=== PATIENT | female | born 1960 | race Caucasian/White ===

== ENCOUNTER 2021-05-23 09:50 | Outpatient (REF) | payer MEDICAID, SELFPAY ==
--- NOTE | ~2021-05-23 | MM_ITS ---
EXAMINATION: MM SCREENING DIGITAL BREAST TOMOSYNTHESIS, BILATERAL CLINICAL INFORMATION: Screening. Asymptomatic. The lifetime risk of breast cancer based on the Tyrer-Cuzick Model is 7%. COMPARISON: Mammography: 03/21/2019, 03/14/2018, 02/26/2017, 07/31/2016, 09/11/2013 TECHNIQUE: Digital breast tomosynthesis is performed in both the craniocaudal and mediolateral oblique views along with computer-aided detection (CAD). Synthesized 2D images are generated from the tomosynthesis. FINDINGS: There are scattered areas of fibroglandular density (ACR BI-RADS breast composition Category b). There are no significant masses, abnormal calcifications, or other abnormalities. Parenchymal pattern is similar to prior studies. There is no developing density. The axillary nodes are stable. Skin contours are smooth. MM/MM tomosynthesis screening BI IMPRESSION: No mammographic evidence of malignancy. ASSESSMENT: BI-RADS 2: Benign RECOMMENDATION: Routine annual mammography screening. This patient's information was entered into a reminder system with a target due date for their next mammogram.
== END 2021-05-23 09:51 | disposition home or self-care (01) ==
LOC: HO.MAMMO 09:50
PROVIDERS: PCP Family Medicine; Visit Provider Family Medicine
DX: Z12.31 Encounter for screening mammogram for malignant neoplasm of breast (principal)
CPT/HCPCS: 77063; 77067

== ENCOUNTER 2022-04-18 10:03 | Outpatient (REF) | payer MEDICAID, SELFPAY ==
--- NOTE | ~2022-04-18 | XR_ITS ---
EXAMINATION: XR HAND, RIGHT CLINICAL INFORMATION: Right hand pain. COMPARISON: None. TECHNIQUE: PA, lateral, and oblique views of the right hand. FINDINGS: No acute fracture or dislocation. Normal carpal alignment. Mild joint space narrowing with tiny marginal surface at the triscaphe and 1st carpometacarpal joints as well as scattered throughout the metacarpophalangeal and interphalangeal joints. No significant periarticular erosion or osteopenia. No abnormal soft tissue calcification. XR/XR hand RT min 3V IMPRESSION: Minimal degenerative arthritis at the triscaphe and 1st carpometacarpal joints as well as scattered throughout the metacarpophalangeal and interphalangeal joints. No acute fracture or dislocation.
== END 2022-04-18 10:04 | disposition home or self-care (01) ==
LOC: HO.HOSX 10:03
PROVIDERS: Visit Provider Orthopaedic Surgery
DX: M79.641 Pain in right hand (principal); M79.89 Other specified soft tissue disorders
CPT/HCPCS: 73130; 99202

== ENCOUNTER 2022-08-01 10:33 | Outpatient (REF) | payer MEDICAID, SELFPAY ==
--- NOTE | ~2022-08-01 | US_ITS ---
EXAMINATION: US LOWER EXTREMITY (REFLUX EXAM), RIGHT CLINICAL INDICATION: Venous insufficiency COMPARISON: None. TECHNIQUE: Color flow triplex imaging and compression Doppler was performed to evaluate both the deep and the superficial systems of the right lower extremity. To evaluate the superficial system, the examination was performed in the upright position. Color-flow Doppler ultrasound and compression ultrasound were utilized. In addition, maneuvers were utilized to demonstrate reflux. FINDINGS: 1. DEEP VENOUS DOPPLER ULTRASOUND: Common Femoral Vein: Compressible, normal respiratory variation and augmented flow. Femoral Vein: Compressible, normal color flow and augmentation. Popliteal Vein: Compressible, normal augmentation. Deep Reflux: There is no evidence of reflux in the deep system in either the common femoral vein or the popliteal vein. There is no evidence of a Nichole's cyst. 2. SUPERFICIAL VENOUS DOPPLER ULTRASOUND: GREAT SAPHENOUS VEIN: Saphenofemoral Junction: 0.6 cm; Reflux: 0 ms Proximal Thigh: 0.3 cm; Reflux: 0 ms Mid Thigh: 0.3 cm; Reflux: 0 ms Above Knee: 0.4 cm; Reflux: 0 ms At Knee: 0.3 cm; Reflux: 0 ms Below Knee: 0.3 cm; Reflux: 0 ms Mid Calf: 0.1 cm; Reflux: 0 ms Ankle: 0.2 cm; Reflux: 0 ms DUPLICATED MEDIAL GREAT SAPHENOUS VEIN: Diameter: None Imaged Reflux: NA DUPLICATED LATERAL GREAT SAPHENOUS VEIN: Proximal: 0.3 cm; Reflux: 0 ms Distal: 0.1 cm; Reflux: 0 ms SMALL SAPHENOUS VEIN: Proximal: 0.3 cm; Reflux: 0 ms Distal: 0.2 cm; Reflux: 0 ms VEIN OF GIACOMINI: None Imaged. PERFORATORS: Location: Proximal thigh and proximal calf Size: 0.2 -0.3 cm Reflux: NA VARICOSITIES: Location: Proximal thigh Size: 0.3 cm Reflux: NA US/US venous duplex LE RT IMPRESSION: 1. No evidence of DVT or deep venous reflux. 2. No significant reflux in the great saphenous vein or small saphenous vein.
== END 2022-08-01 10:34 | disposition home or self-care (01) ==
LOC: HO.US 10:33
PROVIDERS: PCP Family Medicine; Visit Provider Family Medicine
DX: R25.2 Cramp and spasm (principal)
CPT/HCPCS: 93971

== ENCOUNTER 2022-08-23 08:42 | Outpatient (REF) | payer MEDICAID, SELFPAY ==
--- NOTE | ~2022-08-23 | MM_ITS ---
EXAMINATION: MM SCREENING DIGITAL BREAST TOMOSYNTHESIS, BILATERAL CLINICAL INFORMATION: Screening. Asymptomatic. The lifetime risk of breast cancer based on the Tyrer-Cuzick Model is 7%. COMPARISON: Mammography: 05/23/2021, 03/21/2019, 03/14/2018, 02/26/2017 TECHNIQUE: Digital breast tomosynthesis is performed in both the craniocaudal and mediolateral oblique views along with computer-aided detection (CAD). Synthesized 2D images are generated from the tomosynthesis. FINDINGS: There are scattered areas of fibroglandular density (ACR BI-RADS breast composition Category b). There are no significant masses, abnormal calcifications, or other abnormalities. Parenchymal pattern is similar to prior studies. There is no developing density or architectural abnormality. The axillary nodes is similar to prior exams. Skin contours are unremarkable. No significant changes from prior exams. MM/MM tomosynthesis screening BI IMPRESSION: No mammographic evidence of malignancy. ASSESSMENT: BI-RADS 2: Benign RECOMMENDATION: Routine annual mammography screening. This patient's information was entered into a reminder system with a target due date for their next mammogram.
== END 2022-08-23 08:43 | disposition home or self-care (01) ==
LOC: HO.MAMMO 08:42
PROVIDERS: PCP Family Medicine; Visit Provider Family Medicine
DX: Z12.31 Encounter for screening mammogram for malignant neoplasm of breast (principal)
CPT/HCPCS: 77063; 77067

== ENCOUNTER 2022-09-14 11:00 | Outpatient (RCR) | payer MEDICAID, SELFPAY | END 2022-09-19 07:29 | disposition home or self-care (01) | LOC: HO.PT 11:00 | PROVIDERS: PCP Family Medicine; Visit Provider Family Medicine | DX: R25.2 Cramp and spasm (principal) | CPT/HCPCS: 97110; 97161; 97530 ==

== ENCOUNTER 2022-11-28 13:22 | Outpatient (REF) | payer MEDICAID, SELFPAY ==
[2022-11-28 16:31] LABS: Estimated Average Glucose 120 mg/dL; Hemoglobin A1c % 5.8 % (<6.0)
[2022-11-28 16:47] LABS: Alanine Aminotransferase 15 U/L (0-31); Albumin Level 4.3 g/dL (3.5-5.0); Alkaline Phosphatase 49 U/L (39-117); Anion Gap 10 (12-20); Aspartate Amino Transferase 23 U/L (5-31); Bilirubin Total 0.4 mg/dL (0.0-1.0); Blood Urea Nitrogen 13 mg/dL (9-16); Calcium 9.5 mg/dL (8.4-10.2); Carbon Dioxide 26 mmol/L (22-29); Chloride 108 mmol/L (96-108); Cholesterol 154 mg/dL (<200); Estimated Glomerular Filt Rate > 60; Glucose Random 126 mg/dL (60-115); HDL Cholesterol 49 mg/dL (>40); LDL Cholesterol Calculated 83 mg/dL (<100); Potassium 3.4 mmol/L (3.3-5.1); Sodium 141 mmol/L (135-145); Total Protein 7.5 g/dL (6.5-8.0); Triglycerides 110 mg/dL (<150)
== END 2022-11-28 13:23 | disposition home or self-care (01) ==
LOC: HO.HHCL 13:22
PROVIDERS: Visit Provider Family Medicine
DX: I10 Essential (primary) hypertension (principal); R73.01 Impaired fasting glucose; E78.5 Hyperlipidemia, unspecified
CPT/HCPCS: 36415; 80053; 80061; 83036

== ENCOUNTER 2022-12-27 18:41 | Outpatient (REF) | payer MEDICAID, SELFPAY ==
[2022-12-28 12:34] LABS: BV Int Neg Control Negative (Negative); BV Int Pos Control Positive (Positive)
== END 2022-12-27 18:42 | disposition home or self-care (01) ==
LOC: HO.HHCLNP 18:41
PROVIDERS: Visit Provider Emergency Medicine
DX: N89.8 Other specified noninflammatory disorders of vagina (principal)
CPT/HCPCS: 87480; 87510; 87660

== ENCOUNTER 2023-01-02 16:13 | Outpatient (REF) | payer MEDICAID, SELFPAY ==
[2023-01-04 09:53] LABS: BV Int Neg Control Negative (Negative); BV Int Pos Control Positive (Positive)
== END 2023-01-02 16:14 | disposition home or self-care (01) ==
LOC: HO.HHCLNP 16:13
PROVIDERS: Visit Provider Nurse Practitioner Family
DX: N94.9 Unspecified condition associated with female genital organs and menstrual cycle (principal)
CPT/HCPCS: 87480; 87510; 87660

== ENCOUNTER 2023-01-15 09:38 | Outpatient (REF) | payer MEDICAID, SELFPAY ==
--- NOTE | ~2023-01-15 | CT_ITS ---
CT CERVICAL SPINE WITHOUT CONTRAST HISTORY: Neck pain TECHNIQUE: CT images of the cervical spine were acquired without intravenous contrast. This CT examination was performed using dose optimization techniques as appropriate, variously including the following: *Automated exposure control *Adjustment of mA and/or kV according to patient size (this includes techniques or standardized protocols for targeted exams where dose is matched to indication/reason for exam; i.e. extremities or head) *Use of iterative reconstruction technique DLP: 322.18 mGy-cm COMPARISON: Cervical radiographs 06/13/2021 FINDINGS: Again seen postsurgical changes following C5-C7 ACDF with intact hardware and solid interbody arthrodesis spanning these levels. There is partial osseous fusion across the right C5-C6 facet joint. The craniocervical junction is intact. 8mm ossification inferior to the anterior arch of C1 may be posttraumatic or reflect a congenital accessory ossicle. Straightening of the normal cervical lordosis. There is no significant spondylolisthesis. Vertebral body heights are normal without acute compression fracture. No suspicious osseous lesion. There is mild multilevel disc height loss. Please not canal patency is not well assessed on this examination due to inherent limitations of CT without intrathecal contrast. Within these limitations, multilevel degenerative changes with level by level detail are as follows: C2-C3: Broad-based paracentral disc protrusion, bilateral uncovertebral joint hypertrophy and bilateral facet arthrosis, severe on the left. Mild spinal canal, severe left without significant right neural foraminal stenosis. C3-C4: Shallow annular disc bulge, bilateral uncovertebral spurring and mild bilateral facet arthrosis. No spinal canal stenosis. Minimal right without significant left neural foraminal narrowing. C4-C5: Small disc osteophyte complex with central disc osteophyte protrusion, right greater than left uncovertebral joint hypertrophy and mild bilateral facet arthrosis. Mild to moderate spinal canal stenosis with encroachment upon the ventral cord, severe right and moderate left neural foraminal stenosis. C5-C6: Postsurgical changes as above with streak artifact limiting diagnostic assessment of the spinal canal. No bony spinal canal stenosis. Uncovertebral joint hypertrophy and facet arthrosis contributes to severe left and moderate right neural foraminal stenosis. C6-C7: Postsurgical changes as above with streak artifact limiting diagnostic assessment of the spinal canal. No bony spinal canal stenosis. Mild uncovertebral spurring and facet arthrosis contributes to mild left without significant right neural foraminal stenosis. C7-T1: Artifact limits assessment of the spinal canal however there is no bony spinal canal stenosis. No significant neural foraminal stenosis. No significant abnormalities of the paraspinal soft tissues. 3 mm right upper lobe subpleural nodule. Heterogeneous thyroid gland with a 4 mm right thyroid nodule below size criteria for imaging follow-up. Elongated and ossified styloid processes can be correlated clinically for signs of Chicot syndrome. Punctate calcified left palatine tonsillolith. Mildly prominent left greater than right level 5 lymph nodes and asymmetric prominent level 2A lymph nodes, presumably reactive. CT/CT cervical spine wo IV con IMPRESSION: 1. Postsurgical changes following C5-C7 ACDF with intact hardware and solid interbody arthrodesis spanning these levels. 2. Multilevel cervical spondylosis, worst at the superior junctional level of C4-C5 where there is mild to moderate spinal canal stenosis as well as severe right and moderate left neural foraminal stenosis. Severe left and moderate right C5-C6 neural foraminal stenosis. 3. Elongated and ossified styloid processes can be correlated clinically for signs of Chicot syndrome. 4. 3 mm right upper lobe subpleural nodule. According to the UPDATED 2017 Fleischner Society recommendations, the advised followup imaging for solid nodules < 6 mm is: LOW RISK PATIENT: No routine follow up. HIGH RISK PATIENT: Optional CT at 12 months.
== END 2023-01-15 09:39 | disposition home or self-care (01) ==
LOC: HO.CT 09:38
PROVIDERS: PCP Family Medicine; Visit Provider Family Medicine
DX: M54.2 Cervicalgia (principal); M48.02 Spinal stenosis, cervical region
CPT/HCPCS: 72125

== ENCOUNTER 2023-01-31 06:00 | Emergency (ER) | payer MEDICAID, SELFPAY ==
--- NOTE | ~2023-01-31 | XR_ITS ---
EXAMINATION: XR CHEST CLINICAL INFORMATION: Fever and cough COMPARISON: None available. TECHNIQUE: Frontal view of the chest was obtained. FINDINGS: Heart, mediastinum and pulmonary vessels within normal limits. Right lung is clear. Mild left base atelectasis. Degenerative changes. Lower cervical surgical stabilizing hardware partially visualized. XR/XR chest 1V IMPRESSION: Mild left base atelectasis otherwise no acute cardiopulmonary disease.
[2023-01-31 06:07] VITALS: BP 158/92; BP 164/108; PULSE 101; PULSE 95; RESP 18; TEMP 37.6; O2SAT 96; O2SAT 98; BMI 31.7
[2023-01-31] MEDS: Acetaminophen 325 MG TABLET 975 MG PO (06:23)
[2023-01-31 07:02] LABS: Influenza A PCR NEGATIVE (Negative); Influenza B PCR NEGATIVE (Negative); Resp Syncy Virus RNA Qual PCR NEGATIVE (Negative); SARS COV2 PCR INHOUSE NEGATIVE (Negative)
--- NOTE | 2023-01-31 07:51 | ED.GENADULT ---
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 Patient reports that since Sunday after leaving [employer] she has been experiencing chills, fevers and headache and has not been drinking much water but otherwise denies any nausea, vomiting, diarrhea, denies any abdominal pain and also denies any urinary pain/burning/frequency. Related Data Home Medications Medication Instructions Recorded Confirmed chlorthalidone 25 mg tablet 0 mg PO 04/18/22 cholecalciferol (vitamin D3) 25 25 mcg PO DAILY 04/18/22 mcg (1,000 unit) capsule (Vitamin D3) diphenhydramine HCl 25 mg tablet 25 mg PO BEDTIME PRN 04/18/22 (Banophen) gabapentin 300 mg capsule 300 mg PO 04/18/22 lisinopril 40 mg tablet 40 mg PO DAILY 04/18/22 loratadine 10 mg tablet 10 mg PO DAILY 04/18/22 omeprazole 20 mg capsule,delayed 20 mg PO DAILY 04/18/22 release rosuvastatin 5 mg tablet 5 mg PO QAM 04/18/22 Allergies Allergy/AdvReac Type Severity Reaction Status Date / Time meperidine [Demerol] Allergy Severe hives face Verified 01/31/23 06:15 swelling, throat closing midazolam [From Versed] Allergy Severe Hives, Verified 01/31/23 06:15 Face swelling, Throat closing bupropion [From Wellbutrin] Allergy Unknown Hives, Verified 01/31/23 06:15 Rash, Itching Review of Systems Review of Systems: Pertinent positives and negatives as stated in HPI [facility] Past Medical History Source: nursing notes reviewed Medical History Polyp of cervix Acute hemorrhoid Acid reflux Allergies High blood pressure Prediabetes High cholesterol Surgical History Tubal ligation status History of neck surgery Previous back surgery Social History Social History Smoked in Last 30 Days: No Use of substances other than those prescribed or required for medical reasons: No Advance Directives: No Advance Directives Information Provided: Yes Patient : No Current occupational status: retired and disabled 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 GENERAL: Well developed, well nourished, in no acute distress. HEAD: Normocephalic/atraumatic EYES: PERRLA, EOMI EARS: Ext canals without abnormality, TMs non-bulging and non-erythematous NOSE: Nares patent bilateral OROPHARYNX: no oral lesions noted, posterior pharynx clear and non-erythematous without noted tonsillar enlargement/erythema/exudates NECK: Supple, no adenopathy LUNGS: Normal breath sounds. No adventitious sounds or accessory muscle use. SpO2<96> CARDIOVASCULAR: Regular rate and rhythm without noted murmurs, no JVD or lower extremity edema. ABDOMEN: Soft, suprapubic discomfort, non-distended with bowel sounds. MUSCULOSKELETAL: No tenderness, deformities, or effusions noted on gross inspection. EXTREMITIES: No cyanosis, clubbing or edema. SKIN: Inspection of the skin reveals no rashes NEUROLOGIC: Alert and oriented x 4. Strength and sensation to light touch were grossly intact x 4, no facial asymmetry, no pronator drift, cranial nerves 2-12 are grossly intact. Medications Administered Discontinued Medications Generic Name Dose Route Start Last Admin Trade Name Dimitri PRN Reason Stop Dose Admin Acetaminophen 975 mg 01/31/23 06:16 01/31/23 06:23 Acetaminophen 325 Mg Tablet PO 01/31/23 06:17 975 mg ONCE ONE Administration Ibuprofen 400 mg 01/31/23 07:52 01/31/23 08:22 Ibuprofen 400 Mg Tablet PO 01/31/23 07:53 400 mg ONCE ONE Administration Medical Decision Making Medical Decision Making MDM Narrative: 62-year-old female with history and clinical presentation, DDX: Viral illness, pneumonia, UTI, a component of dehydration I reviewed all viral testing which is negative for COVID-19/RSV/influenza. Chest x-ray does not demonstrate any infiltrate and otherwise my interpretation is in agreement with radiology's impression. I reviewed all investigations and urinalysis is negative for UTI or hematuria. Patient was provided with ibuprofen 400 mg, and on re-evaluation headache has improved and is likely combination of analgesics and increased fluid consumption. My interpretation is that patient has had a viral illness, there are no findings to suggest bacterial infection, no focal findings and patient will be discharged on recommendations for continued analgesics and increase in fluid intake. Differential Diagnosis Differential Diagnoses: The differential diagnosis associated with the presentation includes Please see the discussion above Admission/Observation Consideration of admission/observation: Escalation of care including admission/observation considered Please see the discussion above Lab Data MDM Lab Attestation statement: I reviewed the patient's lab results. Please see the discussion above Labs: Lab Results 01/31/23 01/31/23 Range/Units 06:22 09:12 Urine Color Yellow Urine Appearance Clear Urine pH 7.0 (5.0-9.0) Ur Specific [place] 1.015 (1.005-1.025) Urine Protein Trace (Neg-Trace) mg/dL Urine Glucose (UA) Negative (Negative) mg/dL Urine Ketones Negative (Negative) mg/dL Urine Blood Negative (Negative) Urine Nitrite Negative (Negative) Ur Leukocyte Esterase Negative (Negative) Influenza Type A (PCR) NEGATIVE (Negative) Influenza Type B (PCR) NEGATIVE (Negative) RSV RNA Qual (PCR) NEGATIVE (Negative) SARS-CoV-2 RNA (RT-PCR) NEGATIVE (Negative) Radiology Impression Discussion of test interpretation with radiology: I have reviewed the radiologist's reading. Radiologist Impression: Please see the discussion above External Record Review External record reviewed: Outpatient record, Prior outpatient labs and Prior outpatient radiology Chronic Conditions Patient?s care impacted by: Hypertension Discharge Plan Discharge Clinical Impression: Viral illness Patient Disposition: Home, Self-Care Instructions: Viral Syndrome (ED) Additional Instructions: 1. Recomiendo retomar todos los medicamentos caseros seg?n lo recetado. 2. Tambi?n recomiendo que utilice Tylenol e ibuprofeno para los oleksandr de meng y las temperaturas superiores a 100,4. Adem?s, aumente la cantidad de ingesta de agua. 3. Seguimiento con roblero m?dico de atenci?n primaria. Regrese a la jaylan de emergencias si los s?ntomas empeoran. 1. I recommend resuming all home medications as prescribed. 2. I also recommend that you utilize both Tylenol and ibuprofen for headaches and temperatures greater than 100.4. In addition, please increase the amount of water intake. 3. Follow-up with your primary care doctor. Return to the ER for any worsening symptoms. Prescriptions: No Action lisinopril 40 mg tablet 40 mg PO DAILY gabapentin 300 mg capsule 300 mg PO cholecalciferol (vitamin D3) [Vitamin D3] 25 mcg (1,000 unit) capsule 25 mcg PO DAILY loratadine 10 mg tablet 10 mg PO DAILY omeprazole 20 mg capsule,delayed release(DR/EC) 20 mg PO DAILY diphenhydramine HCl [Banophen] 25 mg tablet 25 mg PO BEDTIME PRN rosuvastatin 5 mg tablet 5 mg PO QAM chlorthalidone 25 mg tablet 0 mg PO Referrals: Lyly Cam MD [Primary Care Provider] - Print Language: Prydeinig
[2023-01-31 08:00] VITALS: BP 135/84; PULSE 77; RESP 15
[2023-01-31] MEDS: Ibuprofen 400 MG TABLET PO (08:22)
--- NOTE | 2023-01-31 09:05 | PC.NURSE ---
assumed care of pt at 0700. pt a&o x4, pleasant, calm, and cooperative daughter at bedside helps with interpreting, pt is italian speaking only. pt requesting medication other than tylenol to help with pain. pt rating 8/10 head pain, given ibuprofen per mar. pt ambulated with daughter standby assist and gave UA. UA obtained and sent to lab. pt sts ibuprofen helped with pain relief. offers no complaints isidro. rr even/unlabored. call leonard within pt reach. plan of care ongoing.
[2023-01-31 09:19] LABS: Appearance Urine Clear; Color Urine Yellow; Glucose Urine UA Negative (Negative); Leukocyte Esterase Urine Negative (Negative); Nitrite Urine Negative (Negative); Specific Gravity - Urine 1.015 (1.005-1.025); Urine Blood Negative (Negative); Urine Ketones Negative (Negative); Urine Protein Trace mg/dL (Neg-Trace)
== END 2023-01-31 10:04 | disposition home or self-care (01) ==
PROVIDERS: Emergency Medicine; Emergency Provider Student in an Organized Health Care Education/Training Program; PCP Family Medicine
DX: B34.9 Viral infection, unspecified (principal); R51.9 Headache, unspecified; R05.9 Cough, unspecified; R50.9 Fever, unspecified; R42 Dizziness and giddiness; Z20.822 Contact with and (suspected) exposure to COVID-19; Z20.828 Contact with and (suspected) exposure to other viral communicable diseases
CPT/HCPCS: 0241U; 71045; 81003; 99283; 99284

== ENCOUNTER 2023-05-21 09:59 | Outpatient (REF) | payer MEDICAID, SELFPAY ==
--- NOTE | ~2023-05-21 | MR_ITS ---
EXAMINATION: MR CERVICAL SPINE WITHOUT CONTRAST CLINICAL INFORMATION: Cervical spinal stenosis. COMPARISON: Cervical spinal stenosis. TECHNIQUE: MRI of the cervical spine was obtained using routine sequences without contrast. FINDINGS: Instrumented anterior fusion of C5-C7. Minimal degenerative retrolisthesis of C4 on C5. Minimal degenerative anterolisthesis of T1 on T2. Otherwise, normal anatomic alignment. Moderate degenerative disc disease at C4-C5 and from C7-T3. Mild degenerative disc disease at all additional levels. Associated mixed Modic type discogenic and plate changes including mild Modic type I discogenic edema at C4-C5. Mild marrow edema within the posterior elements of C2-C3 and C4-C6 consistent with degenerative stress reaction. No additional suspicious marrow edema. The vertebral body heights are well-maintained. No demonstrated spinal cord signal abnormalities. Limited evaluation of the soft tissues of the neck without demonstrated abnormalities. The flow voids of the major cervical vessels are maintained. Normal appearance of the cervicomedullary junction and visualized posterior fossa. SPINAL LEVELS: C2-C3: Mild disc-osteophyte complex. There is mild bilateral uncovertebral joint arthropathy. There is severe left and mild right facet joint arthropathy. There is moderate left and mild right neural foraminal stenosis. There is no spinal canal stenosis. C3-C4: Mild disc-osteophyte complex. There is moderate right and mild left uncovertebral joint arthropathy. There is mild to moderate bilateral facet joint arthropathy. There is mild bilateral neural foraminal stenosis. There is mild spinal canal stenosis. C4-C5: Moderate disc-osteophyte complex with superimposed central disc protrusion. There is severe right and moderate left uncovertebral joint arthropathy. There is mild to moderate bilateral facet joint arthropathy. There is severe right and mild to moderate left neural foraminal stenosis. There is moderate spinal canal stenosis. C5-C6: Fused at this level. There is moderate bilateral uncovertebral joint arthropathy. There is moderate bilateral facet joint arthropathy. There is severe left and moderate right neural foraminal stenosis. There is no spinal canal stenosis. C6-C7: Fused at this level. There is moderate bilateral uncovertebral joint arthropathy. There is moderate left and mild right facet joint arthropathy. There is mild left worse than right neural foraminal stenosis. There is no spinal canal stenosis. C7-T1: Moderate disc-osteophyte complex. There is moderate right and mild left uncovertebral joint arthropathy. There is moderate bilateral facet joint arthropathy. There is moderate right and mild left neural foraminal stenosis. There is no spinal canal stenosis. MR/MR cervical spine wo con IMPRESSION: Instrumented anterior fusion of C5-C7. Moderate multilevel degenerative spondyloarthropathy of the cervical spine as described in detail above. Most notably, there is moderate spinal canal stenosis at C4-C5. Mild spinal canal stenosis at C3-C4. Moderate to severe neural foraminal stenoses at C2-C3, C4-C5, C5-C6, and C7-T1.
== END 2023-05-21 10:00 | disposition home or self-care (01) ==
LOC: HO.MRI 09:59
PROVIDERS: PCP Family Medicine; Visit Provider Family Medicine
DX: M48.02 Spinal stenosis, cervical region (principal)
CPT/HCPCS: 72141

== ENCOUNTER 2023-08-27 10:53 | Outpatient (REF) | payer MEDICAID, SELFPAY ==
[2023-08-27 14:19] LABS: Anion Gap 12 (12-20); Blood Urea Nitrogen 19 mg/dL (9-16); Carbon Dioxide 26 mmol/L (22-29); Chloride 107 mmol/L (96-108); Estimated Glomerular Filt Rate > 60; Glucose Random 104 mg/dL (60-115); Potassium 3.7 mmol/L (3.3-5.1); Sodium 141 mmol/L (135-145)
== END 2023-08-27 10:54 | disposition home or self-care (01) ==
LOC: HO.HHCL 10:53
PROVIDERS: Visit Provider Family Medicine
DX: I10 Essential (primary) hypertension (principal)
CPT/HCPCS: 36415; 80048

== ENCOUNTER 2023-09-18 09:06 | Outpatient (REF) | payer MEDICAID, SELFPAY | END 2023-09-18 09:07 | disposition home or self-care (01) | LOC: HO.MAMMO 09:06 | PROVIDERS: PCP Family Medicine; Visit Provider Family Medicine | DX: Z12.31 Encounter for screening mammogram for malignant neoplasm of breast (principal) | CPT/HCPCS: 77063; 77067 ==

== ENCOUNTER → 2023-09-18 09:30 | Outpatient (BNV) | payer MEDICAID, SELFPAY | PROVIDERS: PCP Family Medicine; Visit Provider Radiology Diagnostic Radiology | DX: Z12.31 Encounter for screening mammogram for malignant neoplasm of breast (principal) | CPT/HCPCS: 77063; 77067 ==

== ENCOUNTER 2023-10-11 09:32 | Outpatient (REF) | payer MEDICAID, SELFPAY ==
[2023-10-11 11:36] LABS: Estimated Average Glucose 123 mg/dL; Hemoglobin A1c % 5.9 % (<6.0)
[2023-10-11 11:47] LABS: Alanine Aminotransferase 14 U/L (0-31); Albumin Level 4.4 g/dL (3.5-5.0); Alkaline Phosphatase 56 U/L (39-117); Anion Gap 17 (12-20); Aspartate Amino Transferase 19 U/L (5-31); Bilirubin Total 0.3 mg/dL (0.0-1.0); Blood Urea Nitrogen 22 mg/dL (9-16); Calcium 10.2 mg/dL (8.4-10.2); Carbon Dioxide 25 mmol/L (22-29); Chloride 105 mmol/L (96-108); Cholesterol 179 mg/dL (<200); Estimated Glomerular Filt Rate > 60; Glucose Random 101 mg/dL (60-115); HDL Cholesterol 54 mg/dL (>40); LDL Cholesterol Calculated 102 mg/dL (<100); Potassium 3.5 mmol/L (3.3-5.1); Sodium 143 mmol/L (135-145); Total Protein 7.5 g/dL (6.5-8.0); Triglycerides 116 mg/dL (<150)
[2023-10-11 11:52] LABS: Reflex LDLD? No
== END 2023-10-11 09:33 | disposition home or self-care (01) ==
LOC: HO.HHCL 09:32
PROVIDERS: Visit Provider Family Medicine
DX: E78.5 Hyperlipidemia, unspecified (principal); I10 Essential (primary) hypertension
CPT/HCPCS: 36415; 80053; 80061; 83036

== ENCOUNTER 2024-10-08 11:00 | Outpatient (RCR) | payer MEDICAID, SELFPAY | END 2024-11-27 15:56 | disposition home or self-care (01) | LOC: HO.PT 11:00 | PROVIDERS: PCP Family Medicine; Visit Provider Family Medicine | DX: M48.02 Spinal stenosis, cervical region (principal); M54.2 Cervicalgia; G89.29 Other chronic pain | CPT/HCPCS: 97110; 97140; 97162; 97530 ==

== ENCOUNTER 2024-10-15 15:07 | Outpatient (REF) | payer MEDICAID, SELFPAY ==
--- OUTSIDE RECORDS SUMMARY | 2024-10-15 15:37 | XMS_ITS | Clinical Summary ---
Author Organization [employer] Address [address] [place] [address] [address] [place] [address] Care Team Providers Care Vector Control Specialist Name Role Phone Lyly Cam MD Primary Care Provider [phone] Marcell Dutta PharmD Unavailable [phone] Allergies Active Allergy Reactions Criticality Noted Date Comments Amlodipine 10/13/2015 Atorvastatin 08/23/2012 Bupropion Hives 08/23/2023 Latex Rash Low 08/23/2023 Loratadine Headache 08/25/2013 Meperidine Rash Low 08/23/2012 Midazolam Rash Low 08/23/2012 Montelukast Headache 08/25/2013 Nickel Rash Low 08/23/2023 Simvastatin Itching 08/25/2013 Medications gabapentin (Neurontin) 300 MG capsule TAKE 1 CAPSULE BY MOUTH EVERY MORNING & AT BEDTIME 2 Active rosuvastatin (Crestor) 5 MG tabletIndications :Dyslipidemia TAKE 1 TABLET BY MOUTH EVERY DAY IN THE MORNING 90 tablet 3 4 Active cholecalciferol (D3-1000) 25 MCG (1000 UT) capsuleIndication s:Vitamin D deficiency TAKE 1 CAPSULE BY MOUTH EVERY DAY IN THE MORNING 90 capsule 3 5 Active diphenhydrAMINE (Banophen) 25 MG tablet TAKE 1 TABLET BY MOUTH EVERY DAY AT BEDTIME NEEDED 90 tablet 3 5 Active cromolyn (Opticrom) 4 % ophthalmic solution ADMINISTER 1 DROP INTO BOTH EYES FOUR TIMES DAILY 10 mL 3 5 Active cetirizine (ZyrTEC) 10 MG tabletIndications :Nasal congestion Take 1 tab daily as needed for allergies or congestion 90 tablet 1 5 Active olmesartan (Benicar) 40 MG tabletIndications :Primary hypertension Take 1 tablet (40 mg) by mouth Once per day. 30 tablet 11 5 07/19/19 26 Active clobetasol (Temovate) 0.05 % ointment APPLY TO AFFECTED AREA TWICE A DAY 45 g 1 5 Active cyclobenzaprine (Flexeril) 5 MG tablet TAKE 1 OR 2 TABLETS BY MOUTH AT BEDTIME NEEDED FOR MUSCLE SPASM 60 tablet 1 5 Active omeprazole (PriLOSEC) [address] capsuleIndication s:Dyslipidemia TAKE 1 CAPSULE BY MOUTH ONCE DAILY BEFORE A MEAL 90 capsule 5 Active fluticasone (Flonase) 50 MCG/ACT nasal spray Administer 1-2 sprays into each nostril Once per day. Shake gently. Before first use, prime pump. After use, clean tip and replace cap. 16 g 2 5 08/12/19 26 Active celecoxib (CeleBREX) 100 MG capsule Take 1 capsule by mouth once or twice daily as needed for moderate to severe pain 60 capsule 2 5 Active Active Problems Problem Noted Date Diagnosed Date Chronic neck pain 08/11/2024 Assessment & Plan (08/11/2024 1:36 PM EDT): - contacted her neurosurgeon's office - will refer to PT - will prescribe celecoxib History of deep vein thrombosis (DVT) of lower e xtremity 07/15/2022 Assessment & Plan (12/01/2022 6:07 AM EDT): - Right medial and lateral gastrocnemius veins in August 2018 - with right Achilles tendon rupture - Provoked - treated with 3 months of Xarelto - most recent venous study and deep vein doppler were negative for venous reflux or DVT in July 2022 Assessment & Plan (07/15/2022 9:11 PM EDT): - Right medial and lateral gastrocnemius veins in August 2018 - with right Achilles tendon rupture - Provoked - treated with 3 months of Xarelto Subcutaneous mass of right thumb 07/13/2022 Assessment & Plan (07/13/2022 12:24 PM EDT): Patient was seen by Orthopedist on 04/18/22 -Recommended Excisional Biopsy of mass, but patient deferred at this time -patient has mild-OA (osteoarthritis) of joint -will continue to monitor Pain of right thumb 07/13/2022 Assessment & Plan (07/13/2022 12:23 PM EDT): Patient was seen by Orthopedist on 04/18/22 -Recommended Excisional Biopsy of mass, but patient deferred at this time -patient has mild-OA (osteoarthritis) of joint -will continue to monitor Cramps of right lower extremity 07/13/2022 Overview (07/13/2022): Hx of Achilles Tendon Rupture Assessment & Plan (12/01/2022 6:06 AM EDT): - Hx DVT and Achilles tendon rupture in August 2018 - LE venous study and doppler was normal in July 2022 - completed PT, still symptomatic - continue stretching exercise Assessment & Plan (07/15/2022 9:14 PM EDT): - Hx DVT and Achilles tendon rupture in August 2018 - Refer to physical therapy Globus sensation 03/20/2022 Assessment & Plan (03/21/2022 4:00 PM EST): -Evaluated by ENT. Normal laryngoscopy -Pt is non-smoker. ENT's impression is that pt might have sustained an injury when she was intubated for her ACDF operation -Referred to speech therapy as recommended by ENT, but was unable to receive the therapy; will check -Currently it is tolerable Cervical spinal stenosis 03/20/2022 Assessment & Plan (08/17/2024 7:21 PM EDT): -Followed by [facility] providers and [facility] neurosurgeon. -Last seen by neurosurgeon in August 2023, post-op check -Last seen by PSS provider in May 2019 -s/p ACDF C5-C7 on 07/01/[address] Horn -CT in Dec 2022 showed severe spinal canal and foraminal stenosis -MRI in Apr 2023 showed Moderate multilevel degenerative spondyloarthropathy of the cervical spines. Moderate spinal canal stenosis at C4-C5. Mild spinal canal stenosis at C3-C4. Moderate to severe neural foraminal stenoses at C2-C3, C4-C5, C5-C6, and C7-T1 - s/p ACDF C4-C5, removal of right C5 screw, on 08/17/23 -Continue gabapentin 300 mg bid -Continue lidocaine patch -Continue judicious use of muscle relaxant -Add celecoxib. Discussed about its judicious use. Assessment & Plan (01/16/2024 1:43 PM EDT): -Followed by [facility] providers and [facility] neurosurgeon. -Last seen by neurosurgeon in August 2023, post-op check -Last seen by PSS provider in May 2019 -s/p ACDF C5-C7 on 07/01/[address] Horn -CT in Dec 2022 showed severe spinal canal and foraminal stenosis -MRI in Apr 2023 showed Moderate multilevel degenerative spondyloarthropathy of the cervical spines. Moderate spinal canal stenosis at C4-C5. Mild spinal canal stenosis at C3-C4. Moderate to severe neural foraminal stenoses at C2-C3, C4-C5, C5-C6, and C7-T1 - s/p ACDF C4-C5, removal of right C5 screw, on 08/17/23 -Continue gabapentin 300 mg bid -Continue lidocaine patch - the patient is still having discomfort after surgery. Will try muscle relaxer at bedtime. Assessment & Plan (10/10/2023 5:45 AM EDT): -Followed by [facility] providers and [facility] neurosurgeon. -Last seen by neurosurgeon in August 2023, post-op check -Last seen by PSS provider in May 2019 -s/p ACDF C5-C7 on 07/01/[address] Horn -CT in Dec 2022 showed severe spinal canal and foraminal stenosis -MRI in Apr 2023 showed Moderate multilevel degenerative spondyloarthropathy of the cervical spines. Moderate spinal canal stenosis at C4-C5. Mild spinal canal stenosis at C3-C4. Moderate to severe neural foraminal stenoses at C2-C3, C4-C5, C5-C6, and C7-T1 - s/p ACDF C4-C5, removal of right C5 screw, on 08/17/23 -Continue gabapentin 300 mg bid -Continue lidocaine patch Assessment & Plan (06/07/2023 6:20 AM EDT): -Followed by [facility] providers and neurosurgeon. -Last seen by neurosurgeon in JanFeb 2019 -Last seen by PSS provider in May 2019 -s/p ACDF C5-C7 on 07/01/[address] Horn -CT in Dec 2022 showed severe spinal canal and foraminal stenosis -MRI in Apr 2023 showed Moderate multilevel degenerative spondyloarthropathy of the cervical spines. Moderate spinal canal stenosis at C4-C5. Mild spinal canal stenosis at C3-C4. Moderate to severe neural foraminal stenoses at C2-C3, C4-C5, C5-C6, and C7-T1 -Continue gabapentin 300 mg bid -Continue lidocaine patch -Upcoming appointment with neurosurgeon in July 2023 Assessment & Plan (03/18/2023 11:23 AM EST): -Followed by [facility] providers and neurosurgeon. -Last seen by neurosurgeon in JanFeb 2019 -Last seen by PSS provider in May 2019 -s/p ACDF C5-C7 on 07/01/[address] Horn -Continue gabapentin 300 mg bid - Add lidocaine patch - refer back to neurosurgery Assessment & Plan (12/01/2022 6:04 AM EDT): -Followed by [facility] providers and neurosurgeon. -Last seen by neurosurgeon in JanFeb 2019 -Last seen by PSS provider in May 2019 -s/p ACDF C5-C7 on 07/01/[address] Horn -Tapered down Gabapentin, now maintained at 300 mg bid -Re-evaluate with CT due to worsening pain Assessment & Plan (03/20/2022 10:36 AM EST): -Followed by [facility] providers and neurosurgeon. -Last seen by neurosurgeon in JanFeb 2019 -Last seen by PSS provider in May 2019 -s/p ACDF C5-C7 on 07/01/[address] Horn -Tapered down Gabapentin, now maintained at 300 mg bid Anxiety and depression 03/20/2022 Assessment & Plan (10/09/2023 9:46 PM EDT): -Hx PTSD -Ending long-term relationship in 2019 -Pt is looking forward to starting a new year in her new apartment -Continue practicing healthy lifestyle, stress reduction, and self-care. Assessment & Plan (12/01/2022 6:06 AM EDT): -Hx PTSD -Ending long-term relationship in 2020 -Pt is looking forward to starting a new year in her new apartment -Continue practicing healthy lifestyle, stress reduction, and self-care. Assessment & Plan (03/21/2022 4:03 PM EST): -Hx PTSD -Ending long-term relationship in 2019 -Pt is looking forward to starting a new year in her new apartment -Continue practicing healthy lifestyle, stress reduction, and self-care. Atopic dermatitis 10/12/2015 Assessment & Plan (10/10/2023 11:26 AM EDT): - avoid irritation - continue liberal moisturization with hypoallergenic, unscented emollients - judicious use of topical steroid in moderate to severe areas - switch clobetasol from cream to ointment. Assessment & Plan (07/15/2022 9:13 PM EDT): - avoid irritation - continue liberal moisturization with hypoallergenic, unscented emollients - judicious use of topical steroid in moderate to severe areas Dyslipidemia 09/16/2014 Assessment & Plan (08/11/2024 1:09 PM EDT): -10/11/23 TC 179; TG 116; HDL 54; LDL 102 -Current medication: rosuvastatin 5 mg daily -Treatment Hx: intolerance to atorvastatin, simvastatin -Continue working on lifestyle modification Assessment & Plan (01/16/2024 1:42 PM EDT): -10/11/23 TC 179; TG 116; HDL 54; LDL 102 -Current medication: rosuvastatin 5 mg daily -Treatment Hx: intolerance to atorvastatin, simvastatin -Continue working on lifestyle modification Assessment & Plan (10/09/2023 9:46 PM EDT): -11/28/22 TC 154; TG 110; HDL 49; LDL 83 -Current medication: rosuvastatin 5 mg daily -Treatment Hx: intolerance to atorvastatin, simvastatin -Continue working on lifestyle modification Assessment & Plan (06/23/2023 6:33 AM EDT): -11/28/22 TC 154; TG 110; HDL 49; LDL 83 -Current medication: rosuvastatin 5 mg daily -Treatment Hx: intolerance to atorvastatin, simvastatin -Continue working on lifestyle modification Assessment & Plan (03/18/2023 11:31 AM EST): -11/28/22 TC 154; TG 110; HDL 49; LDL 83 -Current medication: rosuvastatin 5 mg daily -Treatment Hx: intolerance to atorvastatin, simvastatin -Continue working on lifestyle modification Assessment & Plan (12/01/2022 6:06 AM EDT): -12/15/21 TC 168; TG 103; HDL 51; LDL 97 -Current medication: rosuvastatin 5 mg daily -Treatment Hx: intolerance to atorvastatin, simvastatin -Continue working on lifestyle modification Assessment & Plan (07/15/2022 9:12 PM EDT): -12/15/21 TC 168; TG 103; HDL 51; LDL 97 -Current medication: rosuvastatin 5 mg daily -Treatment Hx: intolerance to atorvastatin, simvastatin -Continue working on lifestyle modification Assessment & Plan (03/20/2022 10:44 AM EST): -12/15/21 TC 168; TG 103; HDL 51; LDL 97 -Current medication: rosuvastatin 5 mg daily -Treatment Hx: intolerance to atorvastatin, simvastatin -Continue working on lifestyle modification Migraine 09/16/2014 Allergic rhinitis 08/23/2012 Assessment & Plan (10/10/2023 11:26 AM EDT): -Continue Loratadine - add cromolyn eye drops for conjunctivitis. Gastroesophageal reflux disease 08/23/2012 Assessment & Plan (03/20/2022 10:47 AM EST): -continue omeprazole Hypertension 08/23/2012 Assessment & Plan (08/17/2024 7:15 PM EDT): -Goal BP < 130/80 per ACC/AHA (Treatment threshold 140/90); < 150/90 per JNC-8,, Hx white coat HTN - BP elevated today, home BP has been slightly elevated, currently in pain -Co-managed with our pharmacist through [facility] -Continue checking home BP -Completed 24 hour BP monitor / bioimpedance cardiography hemodynamic measurement in 2018, which showed normal BP measurement at home -Continue working on lifestyle modifications and medication adherence. -Continue olmesartan 40 mg qAM. -Treatment Hx: nifedipine was discontinued due to headache; atenolol was discontinued due to symptomatic hypotension, chlorthalidone was discontinued due to hypotension, hctz 25 mg caused fatigue, and amlodipine was discontinued due to abdominal pain and LE edema; metoprolol was discontinued due to patient's perception of memory impairment -Consider combo med Assessment & Plan (01/16/2024 5:56 AM EDT): -Goal BP < 150/90 per JNC-8, < 130/80 per ACC/AHA (Treatment threshold 140/90); Hx white coat HTN - BP elevated today likely white coat hypertension. Home BP are normal. -Co-managed with our pharmacist through [facility] -Continue checking home BP -Completed 24 hour BP monitor / bioimpedance cardiography hemodynamic measurement in 2018, which showed normal BP measurement at home -Continue working on lifestyle modifications and medication adherence. -Continue olmesartan 50 mg qAM. -Treatment Hx: nifedipine was discontinued due to headache; atenolol was discontinued due to symptomatic hypotension, chlorthalidone was discontinued due to hypotension, hctz 25 mg caused fatigue, and amlodipine was discontinued due to abdominal pain and LE edema; metoprolol was discontinued due to patient's perception of memory impairment -Consider longer acting medication, if available --f/u in 3 months or sooner prn Assessment & Plan (10/10/2023 11:24 AM EDT): -Goal BP < 150/90 per JNC-8, < 130/80 per ACC/AHA (Treatment threshold 140/90); Hx white coat HTN - BP elevated today likely white coat hypertension. Home BP are normal. -Co-managed with our pharmacist through [facility] -Continue checking home BP -Completed 24 hour BP monitor / bioimpedance cardiography hemodynamic measurement in 2018, which showed normal BP measurement at home -Continue working on lifestyle modifications and medication adherence. -Continue olmesartan 50 mg qAM. -Continue metoprolol succinate 12.5 mg daily with parameter -Treatment Hx: nifedipine was discontinued due to headache; atenolol was discontinued due to symptomatic hypotension, chlorthalidone was discontinued due to hypotension, hctz 25 mg caused fatigue, and amlodipine was discontinued due to abdominal pain and LE edema; metoprolol was discontinued due to patient's perception of memory impairment -Consider longer acting medication, if available --f/u in 3 months or sooner prn Assessment & Plan (06/23/2023 6:32 AM EDT): -Goal BP < 150/90 per JNC-8, < 130/80 per ACC/AHA (Treatment threshold 140/90); Hx white coat HTN -Co-managed with our pharmacist through [facility] -Continue checking home BP -Completed 24 hour BP monitor / bioimpedance cardiography hemodynamic measurement in 2018, which showed normal BP measurement at home -Continue working on lifestyle modifications and medication adherence. -Continue lisinopril 40 mg qAM. -Continue metoprolol succinate 12.5 mg daily with parameter -Treatment Hx: nifedipine was discontinued due to headache; atenolol was discontinued due to symptomatic hypotension, chlorthalidone was discontinued due to hypotension, hctz 25 mg caused fatigue, and amlodipine was discontinued due to abdominal pain and LE edema. -Consider longer acting medication, if available --f/u in 3 months or sooner prn Assessment & Plan (03/12/2023 6:31 AM EST): -Goal BP < 150/90 per JNC-8, < 130/80 per ACC/AHA (Treatment threshold 140/90); Hx white coat HTN -Co-managed with our pharmacist through [facility] -Continue checking home BP -Completed 24 hour BP monitor / bioimpedance cardiography hemodynamic measurement in 2018, which showed normal BP measurement at home -Continue working on lifestyle modifications and medication adherence. -Continue lisinopril 40 mg qAM. -Treatment Hx: atenolol, chlorthalidone, hctz, and amlodipine - discontinued due to concern for symptomatic low BP and side effects. --f/u in 3-6 months or sooner prn Assessment & Plan (12/01/2022 6:05 AM EDT): -Goal BP < 150/90 per JNC-8, < 130/80 per ACC/AHA (Treatment threshold 140/90); Hx white coat HTN -Co-managed with our pharmacist through [facility] -Continue checking home BP -Completed 24 hour BP monitor / bioimpedance cardiography hemodynamic measurement in 2018, which showed normal BP measurement at home -Continue working on lifestyle modifications and medication adherence. -Continue lisinopril 40 mg qAM. -Treatment Hx: atenolol, chlorthalidone, hctz, and amlodipine - discontinued due to concern for symptomatic low BP and side effects. --f/u in 3-6 months or sooner prn Assessment & Plan (07/13/2022 11:47 AM EDT): -Goal BP < 150/90 per JNC-8, < 130/80 per ACC/AHA (Treatment threshold 140/90); Hx white coat HTN -Co-managed with our pharmacist through [facility] -Continue checking home BP -Completed 24 hour BP monitor / bioimpedance cardiography hemodynamic measurement in 2018, which showed normal BP measurement at home -Continue working on lifestyle modifications and medication adherence. -Continue lisinopril 40 mg qAM. -Treatment Hx: atenolol, chlorthalidone, hctz, and amlodipine - discontinued due to concern for symptomatic low BP and side effects. --f/u in 3 month Assessment & Plan (03/20/2022 10:54 AM EST): -Goal BP < 150/90 per JNC-8, < 130/80 per ACC/AHA (Treatment threshold 140/90); Hx white coat HTN -Co-managed with our pharmacist through [facility] -Continue checking home BP -Completed 24 hour BP monitor / bioimpedance cardiography hemodynamic measurement in 2018, which showed normal BP measurement at home -Continue working on lifestyle modifications and medication adherence. -Continue lisinopril 40 mg qAM. -Treatment Hx: atenolol, chlorthalidone, hctz, and amlodipine - discontinued due to concern for symptomatic low BP and side effects. --f/u in 3 month Impaired fasting glucose 08/23/2012 Assessment & Plan (08/11/2024 1:39 PM EDT): -Since 2019 A1C > 5.9%, the highest 6.1% in [id number] -12/15/21 6.0% -11/28/22 5.8% -10/10/23 6.3% - 10/11/23 5.9% -Family Hx DM (mother and daughter) -Continue working on lifestyle modification -Continue screening q6-12 mo Assessment & Plan (01/16/2024 1:41 PM EDT): -Since 2019 A1C > 5.9%, the highest 6.1% in [id number] -12/15/21 6.0% -11/28/22 5.8% -10/10/23 6.3% -Family Hx DM (mother and daughter) -Continue working on lifestyle modification -Continue screening q6-12 mo Assessment & Plan (10/09/2023 9:45 PM EDT): -Since 2019 A1C > 5.9%, the highest 6.1% in [id number] -12/15/21 6.0% -11/28/22 5.8% -Family Hx DM (mother and daughter) -Continue working on lifestyle modification -Continue screening q6-12 mo Assessment & Plan (06/23/2023 6:33 AM EDT): -Since 2019 A1C > 5.9%, the highest 6.1% in 5092-1754 -12/15/21 6.0% -11/28/22 5.8% -Family Hx DM (mother and daughter) -Continue working on lifestyle modification -Continue screening q6-12 mo Assessment & Plan (03/18/2023 11:31 AM EST): -Since 2019 A1C > 5.9%, the highest 6.1% in 4446-9034 -12/15/21 6.0% -11/28/22 5.8% -Family Hx DM (mother and daughter) -Continue working on lifestyle modification -Continue screening q6-12 mo Assessment & Plan (07/13/2022 11:47 AM EDT): -Since 2019 A1C > 5.9%, the highest 6.1% in 1116-3224 -12/15/21 6.0% -Family Hx DM (mother and daughter) -Continue working on lifestyle modification -Continue screening q6-12 mo Assessment & Plan (03/20/2022 10:39 AM EST): -Since 2019 A1C > 5.9%, the highest 6.1% in 8800-3480 -12/15/21 6.0% -Family Hx DM (mother and daughter) -Continue working on lifestyle modification -Continue screening q6-12 mo Insomnia 08/23/2012 Assessment & Plan (03/21/2022 3:59 PM EST): -Stress reduction -Practice healthy sleep hygiene Encounters Date Type Department Care Team Description 10/08/[address] [id number] Lyly Cam MD [facility] 09/14/2024 Results Follow-Up [address] [id number] Denae Decker, ANP MR Cervical Spine w/o Contrast 09/08/2024 1:30 PM EDT Telemedicine [address] [id number] Marcell Dutta, PharmD Hypertension, unspecified type (Primary Dx) 08/27/2024 Telephone [facility] [address] [place] [address] [id number] Lyly Cam MD MRI ORDER 08/11/2024 1:00 PM EDT Office Visit [facility] [address] [place] [id number] Lyly Cam MD Hypertension, unspecified type (Primary Dx); Dyslipidemia; Impaired fasting glucose; Encounter for immunization; Cervical spinal stenosis; Chronic neck pain; Dietary counseling; Exercise counseling; Class 1 obesity due to excess calories with serious comorbidity and body mass index (BMI) of 32.0 to 32.9 in adult 08/11/2024 Travel 08/08/2024 Refill [facility] [address] [place], [place] [phone] Lyly Cam MD Dyslipidemia 08/08/[address] [id number] Lyly Cam MD Chart Prep 07/18/2024 10:00 AM EDT Telemedicine [address] [phone] Marcell Dutta, DenizD Primary hypertension (Primary Dx) 07/18/2024 Travel from Last 3 Months Immunizations Immunization Administration Dates Next Due Influenza injectable quadriv alent IIV4 with preservative 01/01/2018,04/17/2017,01/18/2016,03/02 Influenza injectable quadriv alent preservative free 12/08/2021,12/13/2020,04/28/2019 Influenza, IIV3, injectable 01/01/2014, 1 Influenza, Split (incl. eleazar fied surface antigen) 01/24/2013 Influenza, seasonal, injecta ble, preservative free 01/16/2024 Pfizer Covid-19 Vaccine 12+ 04/18/2021, 1,08/13/2020 Pfizer Covid-19 Vaccine 12+ Bivalent 01/17/2022 Pneumococcal Conjugate PCV 20 08/11/2024 Pneumococcal Polysaccharide PPSV23 08/30/2008 TD (adult), 2 Lf tetanus tox oid, preservative free, adsorbed 07/13/2022,05/01/2007 Td (adult), 5 Lf tetanus tox oid, preservative free, adsorbed 07/13/2022 Tdap 08/23/2012 Zoster, Recombinant 09/20/2020,04/28/2019 Family History Medical History Relation Name Comments Diabetes Daughter Hypertension Daughter Bipolar disorder Granddaughter Diabetes Mother Hypertension Mother Relation Name Status Comments Daughter Granddaughter Other Mother Social History Tobacco Use Types Packs/Day Years Used Date Smoking Tobacco: Never Passive Smoke Exposure: Never Smokeless Tobacco: Never Tobacco Cessation:Counseling Given: Not Answered Depression Answer Date Recorded Patient Health Questionnaire-9 Score 0 10/10/2023 Patient Health Questionnaire-9 Score 0 10/10/2023 Last PHQ-9: Questionnaire Data Not on file 0 10/10/2023 Housing Stability Answer Date Recorded What is your housing situation today? I have rosita kar 08/11/[address] you li ve. Do you have problems with any of the following? None of the above 08/11/2024 Food Insecurity Answer Date Recorded Within the past 12 months, y ou worried that your food would run out before you got money to buy more: Never True 08/11/2024 Within the past 12 months,th e food you bought just didn't last and you didn't have enough money to get more: Never True Transportation Answer Date Recorded In the past 12 months, has l ack of transportation kept you from medical appts, meetings, work or from getting things needed for daily living? No 08/11/2024 Utilities Answer Date Recorded In the past 12 months, has t he electric, gas, oil or water company threatened to shut off services in your home? No 08/11/2024 Depression Answer Date Recorded Patient Health Questionnaire-2 Score 0 10/10/2023 Internet Access Answer Date Recorded Internet Access Q1 Yes 08/11/2024 Internet Access Q2 Not on file 08/11/2024 Comments No Sex and Gender Information Value Date Recorded Sex Assigned at Female 01/23/2022 10:14 AM EDT Legal Sex Female 10:14 AM EDT Gender Identity Female 01/23/2022 10:14 AM EDT Sexual Orientation Choose not to disclose 2021 10:14 AM EDT Last Filed Vital Signs Vital Sign Reading Time Taken Comments Blood Pressure 151/101 09/08/2024 1:49 PM EDT [facility] (televisit) Pulse 83 09/08/2024 1:49 PM EDT Temperature 36.2 C (97.1 F) 08/11/2024 1:07 PM EDT Respiratory Rate 15 08/11/2024 1:07 PM EDT Oxygen Saturation 97% 08/11/2024 1:0 7 PM EDT Inhaled Oxygen Concentration - - Weight 81.7 kg (180 lb 3.2 oz) 08/11/2024 1:07 PM EDT Height 157.5 cm (5' 2 ) 08/11/2024 1:07 PM EDT Body Mass Index 32.96 08/11/2024 1:07 PM EDT Plan of Treatment Upcoming Encounters Date Type Department Care Team (Late st Contact Info) Description 11/17/2024 11:15 AM EDT Office Visit [facility] MEDICINE [address] [place] [phone] Lyly Cam MD [address] [place] [phone] 12/17/2024 2:00 PM EDT Medication Management [address] [address] Marcell Dutta, PharmD [address] [place] [phone] Health Maintenance Due Date Last Done Comments CT Colonography 1961 FIT DNA/Cologuard 1960 FIT 1960 FOBT 1960 Sigmoidoscopy 1960 RSV Patients and Patients Aged 60 years or older (1 - Risk 60-74 years 1-dose series) 2021 COVID-19 Vaccine ( season) 2023 01/17/2022, 04/18/2021, 09/03/2020, Additional history exists Depression Screening 10/09/2024 10/10/2023, 10/10/19 24 Influenza Vaccine (#1) 2024 , 12/08/2021, 12/13/2020, Additional history exists Alcohol/Substance Use Screening 08/11/2025 08/11/2024 Disability Screening 08/11/2025 08/11/2024 SDOH Screening 08/11/2025 08/11/2024 Tobacco Screening 08/11/2025 08/11/2024 Mammogram 09/17/2025 09/18/2023, 07/26, 05/23/2021, Additional history exists Cervical Cancer Screening 01/19/2026 HPV/Cotest 01/19/2026 01/19/2021 Pap Smear 01/19/2026 01/19/2021 Colonoscopy 09/14/2026 09/14/2016 Colorectal Cancer Screening 09/14/2026 Lipid Panel 10/10/2028 10/11/2023, 09/0 07/2022, 12/15/2021, Additional history exists DTaP/Tdap/Td Vaccines (4 - Td or Tdap) 07/13/2032 07/13/2022, 07/13/2022, 08/23/2012, Additional history exists HIV Screening Completed 01/29/2018 Hepatitis C Screening Completed 01/29/2018 Zoster Vaccines Completed 09/20/2020, 04/28/2019 Pneumococcal Vaccine: 50+ Years Completed 08/11/2024, 08/30/2008 HIB Vaccines Aged Out No longer eligi ble based on patient's age to complete this topic HPV Vaccines Aged Out No longer eligi ble based on patient's age to complete this topic Hepatitis A Vaccines Aged Out No long er eligible based on patient's age to complete this topic Hepatitis B Vaccines Aged Out No long er eligible based on patient's age to complete this topic IPV Vaccines Aged Out No longer eligi ble based on patient's age to complete this topic Meningococcal B Vaccine Aged Out No l onger eligible based on patient's age to complete this topic Meningococcal Vaccine Aged Out No mitchell hannah eligible based on patient's age to complete this topic RSV under 20 months Aged Out No longe r eligible based on patient's age to complete this topic Rotavirus Vaccines Aged Out No longer eligible based on patient's age to complete this topic Goals Goal Patient Goal Type Associated Problems Recent Progress Patient-Stated? Author Blood Pressure < 150/90 Blood Pressure 151/101(09/08 1:49 PM EDT) No Marcell Dutta, PharmD Note: Per JNC-8 Patient age >60 years old without Hx of DM or CKD Procedures Procedure Name Priority Date/Time Associated Diagnosis Comments MR CERVICAL SPINE WO CONTRAST Routine 09/01/2024 Cervical spinal stenosis LIPID PANEL WITH REFLEX TO DIRECT LDL Routine 10/11/2023 9:37 AM EDT Dyslipidemia BI MAMMOGRAM SCREENING TOMOSYNTHESIS BILATERAL Routine 09/18/2023 9:40 AM EDT THINPREP IMAGING PAP AND HPV MRNA E6/E7 WITH REFLEX TO HPV 16,18/45 Routine 01/19/2021 4:11 PM EDT HM HEPATITIS C ANTIBODY Routine 01/29/2018 HM HIV 1/2 ANTIGEN AND ANTIBODY Routine 01/29/2018 HM COLONOSCOPY Routine 09/14/2016 from Last 3 Months or Most Recently Relevant to Health Maintenance Results * MR Cervical Spine w/o Contrast (09/01/2024) Anatomical Region Laterality Modality Spine, C-spine Magnetic Resonan ce Denae FRAGOSO Andre MRI PROCEDURES Final Result * (ABNORMAL) Lipid Panel with Reflex to Direct LDL (10/11/2023 9:37 AM EDT) Triglycerides 116 <150 mg/dL [facility] Comment:Desirable Triglyceri de: less than 150 mg/dLBorderline High Triglyceride 150-199 mg/dLHigh Triglyceride: 200-499 mg/dLVery High Triglyceride: greater than or equal to 5OO mg/dL Cholesterol 179 <200 mg/dL [facility] Comment:Desirable Cholestero l: less than 200 mg/dLBorderline High Cholesterol: 200-239 mg/dLHigh Cholesterol: greater than 239 mg/dL LDL Cholesterol Calculated 102(H) <100 mg/dL [facility] Comment:Desirable LDL: less than 100 mg/dLNear Optimal/Above Optimal LDL: 110- 129 mg/dLBorderline High LDL: 130-159 mg/dLHigh LDL: 160-189 mg/dLVery High LDL: greater than or equal to 190 mg/dL HDL Cholesterol 54 >40 mg/dL [facility] Comment:Desirable HDL: great er than 40 mg/dL Note: This HDL assay may give artificially low results in patients with liver disease. Blood 10/11/2023 9:37 AM EDT 10/11/2023 11:15 AM EDT Lyly Cam MD LAB BLOOD ORDERABLES Final Resul t [facility] [address] [place] [address] [phone] * BI Mammogram Screening Tomosynthesis Bilateral (09/18/2023 9:40 AM EDT) Anatomical Region Laterality Modality Breast Bilateral Mammography 09/18/2023 9:40 AM EDT Narrative 10/17/2023 11:19 PM EDT [facility] [address] [place] [address] Mammography Report Signed Patient: Ebony Landaverde MR#: [id number] : 1960 Acct:[id number] Age/Sex: 63 / F ADM Date: 09/18/23 Loc: [facility] Attending Dr: Lyly Cam MD Ordering Physician: Lyly Cam MD Results: 1Negative Date of Service: 09/18/23 Follow Up: 1 Year From [facility] Mammogram Procedure(s): MM tomosynthesis screening BI Accession Number(s): [id number] cc: Lyly Cam MD EXAMINATION: MM SCREENING DIGITAL BREAST TOMOSYNTHESIS, BILATERAL CLINICAL INFORMATION: Screening. Asymptomatic. COMPARISON: Mammography: This study is compared with prior exams dating back to 2019. TECHNIQUE: Digital breast tomosynthesis is performed in both the craniocaudal and mediolateral oblique views along with computer-aided detection (CAD). Synthesized 2D images are generated from the tomosynthesis. FINDINGS: There are scattered areas of fibroglandular density (ACR BI-RADS breast composition Category b). There are no significant masses, abnormal calcifications, or other abnormalities. MM/MM tomosynthesis screening BI IMPRESSION: No mammographic evidence of malignancy. ASSESSMENT: BI-RADS BI-RADS 1 - Negative RECOMMENDATION: Routine annual mammography screening. 1 year F/U This examination should not preclude the clinical evaluation of a suspicious palpable abnormality. This patient's information was entered into a reminder system with a target due date for their next mammogram. Dictated By: Jeannine Ellington MD Signed By: <Electronically signed by Jeannine Ellington MD in OV> 10/17/23 8945 DD/ 0953 TD/TT: Mail List Librarian: Procedure Note Donotuseinterpreter, Image - 10/17/2023 [facility] [address] [place] [address] Mammography Report Signed Patient: Ebony Landaverde RMR#: [id number] : 1960cct:[id number] Age/Sex: 63 / FADM Date: 09/18/23 Loc: [facility] Attending Dr: Lyly Cam MD Ordering Physician: Lyly Cam MDResults: 1Negative Date of Service: 09/18/23Follow Up: 1 Year From [facility] in[facility] Mammogram Procedure(s): MM tomosynthesis screening BI Accession Number(s): [id number] cc: Lyly Cam MD EXAMINATION: MM SCREENING DIGITAL BREAST TOMOSYNTHESIS, BILATERAL CLINICAL INFORMATION: Screening. Asymptomatic. COMPARISON: Mammography: This study is compared with prior exams dating back to 2019. TECHNIQUE: Digital breast tomosynthesis is performed in both the craniocaudal and mediolateral oblique views along with computer-aided detection (CAD). Synthesized 2D images are generated from the tomosynthesis. FINDINGS: There are scattered areas of fibroglandular density (ACR BI-RADS breast composition Category b). There are no significant masses, abnormal calcifications, or other abnormalities. MM/MM tomosynthesis screening BI IMPRESSION: No mammographic evidence of malignancy. ASSESSMENT: BI-RADS BI-RADS 1 - Negative RECOMMENDATION: Routine annual mammography screening. 1 year F/U This examination should not preclude the clinical evaluation of a suspicious palpable abnormality. This patient's information was entered into a reminder system with a target due date for their next mammogram. Dictated By: Jeannine Ellington MD Signed By: <Electronically signed by Jeannine Ellington MD in OV> 10/17/23 8685 DD/ 0940 TD/TT: Mail List Librarian: Lyly Cam MD IMG BI PROCEDURES Edited Result - Final * THINPREP TIS PAP AND HPV mRNA E6/E7 REFLEX HPV 16,18/45 (01/19/2021 4:11 PM EDT) Clinical Information: None given [facility] COMMENT SEE COMMENT [facility] Comment: EXPLANATORY NOTE: The Pap is a screening test for cervical cancer. It is not a diagnostic test and is subject to false negative and false positive results. It is most reliable when a satisfactory sample, regularly obtained, is submitted with relevant clinical findings and history, and when the Pap result is evaluated along with historic and current clinical information. COMMENT: This Pap test has been evaluated with computer assisted technology. [facility] Clin Asst: SEE COMMENT [facility] Comment: SL, CT(ASCP) CT screening location: [place] [address] HPV nRNA E6/E7 Not Detected Not Detected [facility] Comment: Methodology: Automotive General Manager-Mediated Amplification This assay detects E6/E7 viral messenger RNA (mRNA) from 14 high-risk HPV types (16,18,31,33,35,39,45,51,52,56,58,59,66,68). The analytical performance characteristics of this assay have been determined by [employer]. The modifications have not been cleared or approved by the FDA. This assay has been validated pursuant to the CLIA regulations and is used for clinical purposes. For additional information, please refer to http://education.[employer]/faq/MNW379r4 (This link if provided for information/ educational purposes only.) NO COLLECTION DATE RECEIVED. WE HAVE USED THE DATE THE SPECIMEN WAS RECEIVED BY THIS LABORATORY THE COLLECTION DATE. IF THIS IS INCORRECT, PLEASE CONTACT CLIENT SERVICES. PHONE NUMBER: Interpretation/Res ult: SEE COMMENT [facility] Comment: Negative for intraepithelial lesion or malignancy. Atrophic pattern; predominantly parabasal cells LMP: NONE [facility]IV[facility] Prev. BX: NONE [facility]IV[facility] Prev. PAP: NONE [facility]IV[facility] SOURCE: None given [facility] Statement Of Adequacy: SATISFACTORY FOR EVALUATION [facility] 01/19/2021 4:11 PM EDT Lyly Cam MD LAB PATHOLOGY ORDERABLES Final R esult [facility] [address] * Hepatitis C Antibody (01/29/2018) Hepatitis C Antibody Nonreactive Blood 01/29/2018 Historical Provider MD HEALTH MAINTENANCE Final Result * HIV 1/2 Antigen and Antibody (01/29/2018) HIV Ag/Ab Nonreactive 01/29/2018 Historical Provider HEALTH MAINTENANCE Final Result * Colonoscopy (09/14/2016) Colonoscopy Normal Normal 09/14/2016 Lindsay Birmingham [facility] MAINTENANCE Edited Result - Final from Last 3 Months or Most Recently Relevant to Health Maintenance Insurance [facility] [employer] Advance Directives Documents on File Type Date Recorded Patient Gear Shaver Set Up Operator Expl anation Power of Library Services Dean 08/17/2023 Power Of A ttorney 08/17/23 Care Teams Vector Control Specialist Relationship Specialty Start Date End Date Lyly Cam MD [address] [place] [address] PCP - General Family Medicine 03/07/12 Marcell Dutta, DenizD [address] [place] [address] Pharmacist Internal Medicine 04/04/22
== END 2024-10-15 15:08 | disposition home or self-care (01) ==
LOC: HO.MAMMO 15:07
PROVIDERS: Visit Provider Family Medicine
DX: Z12.31 Encounter for screening mammogram for malignant neoplasm of breast (principal)
CPT/HCPCS: 77063; 77067

== ENCOUNTER → 2024-10-15 15:45 | Outpatient (BNV) | payer MEDICAID, SELFPAY | PROVIDERS: Visit Provider Radiology Body Imaging | DX: Z12.31 Encounter for screening mammogram for malignant neoplasm of breast (principal) | CPT/HCPCS: 77063; 77067 ==

== ENCOUNTER 2024-11-11 08:41 | Outpatient (REF) | payer MEDICAID, SELFPAY ==
--- OUTSIDE RECORDS SUMMARY | 2024-11-11 09:27 | XMS_ITS | Patient Health Record ---
Author Organization [facility] Address [address] [place] [address] Care Team Providers Care Waste Water Operator Name Role Phone Kevin Early Unavailable [phone] Reason For Referral No Information Plan Of Treatment No Information
[2024-11-11 11:43] LABS: Anion Gap 11 (12-20); Blood Urea Nitrogen 21 mg/dL (9-16); Calcium 9.4 mg/dL (8.4-10.2); Carbon Dioxide 26 mmol/L (22-29); Chloride 108 mmol/L (96-108); Estimated Glomerular Filt Rate > 60; Potassium 4.0 mmol/L (3.3-5.1); Sodium 141 mmol/L (135-145)
== END 2024-11-11 08:42 | disposition home or self-care (01) ==
LOC: HO.HHCL 08:41
PROVIDERS: PCP Family Medicine; Visit Provider Family Medicine
DX: I10 Essential (primary) hypertension (principal)
CPT/HCPCS: 36415; 80048

== ENCOUNTER 2025-02-11 10:07 | Outpatient (REF) | payer MEDICAID, SELFPAY ==
[2025-02-11 12:21] LABS: Alanine Aminotransferase 20 U/L (0-31); Albumin Level 4.5 g/dL (3.5-5.0); Alkaline Phosphatase 55 U/L (39-117); Anion Gap 12 (12-20); Aspartate Amino Transferase 27 U/L (5-31); Blood Urea Nitrogen 20 mg/dL (9-16); Calcium 9.8 mg/dL (8.4-10.2); Carbon Dioxide 29 mmol/L (22-29); Chloride 104 mmol/L (96-108); Cholesterol 190 mg/dL (<200); Estimated Glomerular Filt Rate > 60; HDL Cholesterol 58 mg/dL (>40); Potassium 3.6 mmol/L (3.3-5.1); Sodium 141 mmol/L (135-145); Total Protein 7.6 g/dL (6.5-8.0); Triglycerides 82 mg/dL (<150)
[2025-02-11 13:04] LABS: Microalbum/Creatinine Ratio Ur 6.2 ug/mg cr (<30)
[2025-02-11 17:15] LABS: Reflex LDLD? No
--- OUTSIDE RECORDS SUMMARY | 2025-02-11 19:07 | XMS_ITS | Patient Health Record ---
Author Organization [facility] Address [address] [place] [address] Care Team Providers Care Sole Leveler Name Role Phone Kevin Early Unavailable [phone] Reason For Referral No Information Plan Of Treatment No Information
== END 2025-02-11 10:08 | disposition home or self-care (01) ==
LOC: HO.HHCL 10:07
PROVIDERS: PCP Family Medicine; Visit Provider Family Medicine
DX: I10 Essential (primary) hypertension (principal); E78.5 Hyperlipidemia, unspecified; R73.01 Impaired fasting glucose
CPT/HCPCS: 36415; 80048; 80061; 80076; 82043; 82570; 83036

== ENCOUNTER 2025-02-17 18:08 | Outpatient (REF) | payer MEDICAID, SELFPAY ==
--- OUTSIDE RECORDS SUMMARY | 2025-02-17 11:15 | XMS_ITS | Encounter Summary ---
Author Organization [employer] Address [address] [place] [address] [address] [place] [address] Care Team Providers Care Filter Assembler Name Role Phone Lyly Cam MD Primary Care Provider [phone] Reason for Referral * Consultation (Routine) - Pending Review Specialty Diagnoses / Procedures Referred By Mindy calderon Referred To Contact Physical Therapy Diagnoses Chronic neck pain Peripheral vertigo, unspecified laterality Cervical spinal stenosis Lyly Cam MD [address] [place] [address] Phone: tel: fax: Referral ID Status Reason Start Date Expiration Date Visits Requested Visits Authorized [id number] Pending Review Specialty Services Required 02/17/2026 1 1 Reason for Visit * Reason Comments Follow-up Hypertension Encounter Details Date Type Department Care Team ([facility] st Contact Info) Description 02/17/2025 11:15 AM EST Office Visit [facility] MED[facility]INE [address] [place] [address] [phone] Lyly Cam MD [address] [place] [address] [phone] Hypertension, unspecified type (Primary Dx); Dyslipidemia; Prediabetes; [...] (02/17/2025 4:19 PM EST) Color Urine Yellow [facility] Appearance Urine Clear [facility] PH 6.0 5.0 - 9.0 [facility] Glucose Urine UA Negative Negative mg/dL [facility] Urine Blood Negative Negative [facility] Specific [place] - Urine 1.025 1.005 - 1.025 [facility] Urine Protein Negative Neg-Trace mg/dL [facility] Urine Ketones Negative Negative mg/dL [facility] Nitrite Urine Negative Negative [facility] Leukocyte Esterase Urine Trace(A) Negative [facility] RBC Urine 0-2 0 - 2 /HPF [facility] Urine WBC 0-5 0 - 5 /HPF [facility] Urine Squamous Epithelial Cell 0-2 0 - 2 /HPF [facility] Urine Bacteria None Seen None Seen [facility] Hyaline Casts, Urine 0-2 0 - 2 /LPF [facility] Urine 02/17/2025 4:19 PM EST 02/17/2025 6:09 PM EST Narrative [facility] - 02/17/2025 7:02 PM EST Urine, Clean Catch us Lyly Cam MD LAB URINE ORDERABLES Final Resul t [facility] [address] [place] [address] [phone] documented in this encounter Visit Diagnoses [...] Noted Time PHQ-9 Depression Total Score: 10 11/17/ 025 12:00 PM EDT documented as of this encounter Care Teams Filter Assembler Relationship Specialty Start Date End Date Lyly Cam MD [address] [place] [phone] PCP - General Family Medicine 03/07/12 documented as of this encounter
[2025-02-17 18:47] LABS: Appearance Urine Clear; Glucose Urine UA Negative (Negative); PH 6.0 (5.0-9.0); Specific Gravity - Urine 1.025 (1.005-1.025); UMIC TRIGGER UACC YES
--- OUTSIDE RECORDS SUMMARY | 2025-02-17 19:41 | XMS_ITS | Encounter Summary ---
Author Organization [employer] Address [address] [facility] [address] [place] [address] Care Team Providers Care Tracer Clerk Name Role Phone Lyly Cam MD Primary Care Provider [phone] Reason for Visit * Reason Onset Date Comments chartprep 02/16/2025 Encounter Details Date Type Department Care Team ([facility] st Contact Info) Description 02/16/2025 Telephone [facility] [address] [place] [address] Lyly Cam MD [address] [place], [place] [phone] chartprep Social History Tobacco Use Types Packs/Day Years [...] AM EDT documented as of this encounter Miscellaneous Notes * Telephone Encounter - Jess Escalona [place] - 02/16/2025 1:36 PM EST ..Chart Prep Labs: done Images: done Mammo Vaccines due: Covid Due and Flu Due Referrals: Not Applicable Screenings: Not Applicable Overdue care gaps: None documented in this encounter Plan of Treatment Not on file documented as of this encounter Visit Diagnoses Not on filedocumented in this encounter Additional Health Concerns Assessment Noted Time PHQ-9 Depression Total Score: 10 025 12:00 PM EDT documented as of this encounter Care Teams Tracer Clerk Relationship Specialty Start Date End Date Lyly Cam MD [address] [place] [address] PCP - General Family Medicine 03/07/12 documented as of this encounter
--- OUTSIDE RECORDS SUMMARY | 2025-02-17 19:41 | XMS_ITS | Encounter Summary ---
Author Organization [facility] Address [address] [facility] [address] 7t [place] [address] Care Team Providers Care Supervisor Forming Department Name Role Phone Lyly Cam MD Primary Care Provider [phone] Encounter Details Date Type Department Care Team (Latest Contact Info) Description 02/17/2025 Travel Social History Tobacco Use Types Packs/Day Years Used Date Smoking Tobacco: Never Passive Smoke Exposure: Never Smokeless Tobacco: Never Depression Answer Date Recorded Patient Health Questionnaire-9 Score 10 11/17/2024 Patient Health Questionnaire-9 Score 10 11/17/2024 Last PHQ-9: Questionnaire Data Not on file 0 11/17/2024 Housing Stability Answer Date Recorded What is your housing situation today? I have rositatamara lakhani 08/11/[address] you [...] AM EDT documented as of this encounter Plan of Treatment Not on file documented as of this encounter Visit Diagnoses Not on filedocumented in this encounter Additional Health Concerns Assessment Noted Time PHQ-9 Depression Total Score: 10 025 12:00 PM EDT documented as of this encounter Care Teams Supervisor Forming Department Relationship Specialty Start Date End Date Lyly Cam MD [address] [place] [address] PCP - General Family Medicine 03/07/12 documented as of this encounter
--- OUTSIDE RECORDS SUMMARY | 2025-02-17 19:42 | XMS_ITS | Encounter Summary ---
Author Organization [employer] Address [address] [facility] 7t [place] [address] Care Team Providers Care Mail Examiner Name Role Phone Lyly Cam MD Primary Care Provider [phone] Marcell Dutta PharmD Unavailable [phone] Reason for Visit * Reason Comments Med Refill Encounter Details Date Type Department Care Team ([facility] st Contact Info) Description 03/24/2024 Refill [facility] [address] [place], [place] [phone] Lyly Cam MD [address] [place], [place] [phone] Vitamin D deficiency Social History Tobacco Use Types Packs/Day Years Used Date Smoking Tobacco: Never Passive Smoke Exposure: Never Smokeless Tobacco: Never Depression Answer Date Recorded Patient Health Questionnaire-9 Score 0 10/10/2023 Patient Health Questionnaire-9 Score 0 10/10/2023 Last PHQ-9: Questionnaire Data Not on file 0 10/10/2023 Housing Stability Answer Date Recorded What is your housing situation today? I have rosita lakhani 05/30/[address] you li ve. Do you have problems with any of the following? None of the above 05/30/2023 Food Insecurity Answer Date Recorded Within the past 12 months, y ou worried that your food would run out before you got money to buy more: Never True 05/30/2023 Within the past 12 months,th e food you bought just didn't last and you didn't have enough money to get more: Never True 08/2023 Transportation Answer Date Recorded In the past 12 months, has l ack of transportation kept you from medical appts, meetings, work or from getting things needed for daily living? Yes, it has kept me from medical appointments or getting medications. 05/30/2023 Utilities Answer Date Recorded In the past 12 months, has t he electric, gas, oil or water company threatened to shut off services in your home? No 05/30/2023 Depression Answer Date Recorded Patient Health Questionnaire-2 Score 0 10/10/2023 Comments Unknown Sex and Gender Information Value Date Recorded Sex Assigned at Female 01/23/2022 10:14 AM EDT Legal Sex Female 10:14 AM EDT Gender Identity Female 01/23/2022 10:14 AM EDT Sexual Orientation Choose not to disclose 2021 10:14 AM EDT documented as of this encounter Plan of Treatment Not on file documented as of this encounter Visit Diagnoses Diagnosis Vitamin D deficiency documented in this encounter Additional Health Concerns Assessment Noted Time PHQ-9 Depression Total Score: 0 10/10/19 11:03 AM EDT documented as of this encounter Care Teams Mail Examiner Relationship Specialty Start Date End Date Lyly Cam MD [address] [place] [address] PCP - General Family Medicine 03/07/12 Marcell Dutta, DenizD [address] [place] [address] Pharmacist Internal Medicine 04/04/22 12/17/24 documented as of this encounter
--- OUTSIDE RECORDS SUMMARY | 2025-02-17 19:42 | XMS_ITS | Encounter Summary ---
Author Organization [employer] Address [address] [facility] 7t [place] [address] Care Team Providers Care Operation Supervisor Name Role Phone Lyly Cam MD Primary Care Provider [phone] Marcell Dutta PharmD Unavailable [phone] Reason for Referral * Imaging (Routine) - Closed Specialty Diagnoses / Procedures Referred By Contac t Referred To Contact Radiology Diagnoses Cervical spinal stenosis Procedures MR Cervical Spine w/o Contrast Lyly Cam MD [address] [place] [address] Phone: tel: fax: [facility] [address] [place] [phone] Phone: tel: fax: Referral ID Status Reason Start Date Expiration Date Visits Re quested Visits Authorized [id number] Closed 03/23/2023 03/22/2024 1 1 Encounter Details Date Type Department Care Team (Late st Contact Info) Description 03/23/2023 Orders Only [facility] [address] [place] [phone] Lyly Cam MD [address] [place], [place] [phone] Cervical spinal stenosis (Primary Dx) Social History Tobacco Use Types Packs/Day Years Used Date Smoking Tobacco: Never Passive Smoke Exposure: Never Smokeless Tobacco: Never Depression Answer Date Recorded Patient Health Questionnaire-9 Score 0 03/21/2022 Housing Stability Answer Date Recorded What is your housing situation today? I have rosita sing 01/16/[address] you li ve. Do you have problems with any of the following? None of the above 01/16/2023 Food Insecurity Answer Date Recorded Within the past 12 months, y ou worried that your food would run out before you got money to buy more: Never True 01/16/2023 Within the past 12 months,th e food you bought just didn't last and you didn't have enough money to get more: Never True Transportation Answer Date Recorded In the past 12 months, has l ack of transportation kept you from medical appts, meetings, work or from getting things needed for daily living? No 01/16/2023 Utilities Answer Date Recorded In the past 12 months, has t he electric, gas, oil or water company threatened to shut off services in your home? No 01/16/2023 Depression Answer Date Recorded Patient Health Questionnaire-2 Score 0 03/21/2022 Comments Unknown Sex and Gender Information Value Date Recorded Sex Assigned at Female 01/23/2022 10:14 AM EDT Legal Sex Female 10:14 AM EDT Gender Identity Female 01/23/2022 10:14 AM EDT Sexual Orientation Choose not to disclose 2021 10:14 AM EDT documented as of this encounter Plan of Treatment Not on file documented as of this encounter Procedures Procedure Name Priority Date/Time Associated Diagnosis Comments MR CERVICAL SPINE WO CONTRAST Routine 05/21/2023 10:41 AM EST Cervical spinal stenosis documented in this encounter Results * MR Cervical Spine w/o Contrast (05/21/2023 10:41 AM EST) Anatomical Region Laterality Modality Spine, C-spine Magnetic Resonan ce 05/21/2023 10:4 1 AM EST Narrative 05/22/2023 4:45 PM EST [address] [address] Magnetic Resonance Report Signed Patient: Ebony Landaverde MR#: [id number] : 1960 Acct:[id number] Age/Sex: 63 / F ADM Date: 05/21/23 Loc: HO.MRI Attending Dr: Lyly Cam MD Ordering Physician: Lyly Cam MD Date of Service: 05/21/23 Procedure(s): MR cervical spine wo con Accession Number(s): [id number] cc: Lyly Cam MD EXAMINATION: MR CERVICAL SPINE WITHOUT CONTRAST CLINICAL INFORMATION: Cervical spinal stenosis. COMPARISON: Cervical spinal stenosis. TECHNIQUE: MRI of the cervical spine was obtained using routine sequences without contrast. FINDINGS: Instrumented anterior fusion of C5-C7. Minimal degenerative retrolisthesis of C4 on C5. Minimal degenerative anterolisthesis of T1 on T2. Otherwise, normal anatomic alignment. Moderate degenerative disc disease at C4-C5 and from C7-T3. Mild degenerative disc disease at all additional levels. Associated mixed Modic type discogenic and plate changes including mild Modic type I discogenic edema at C4-C5. Mild marrow edema within the posterior elements of C2-C3 and C4-C6 consistent with degenerative stress reaction. No additional suspicious marrow edema. The vertebral body heights are well-maintained. No demonstrated spinal cord signal abnormalities. Limited evaluation of the soft tissues of the neck without demonstrated abnormalities. The flow voids of the major cervical vessels are maintained. Normal appearance of the cervicomedullary junction and visualized posterior fossa. SPINAL LEVELS: C2-C3: Mild disc-osteophyte complex. There is mild bilateral uncovertebral joint arthropathy. There is severe left and mild right facet joint arthropathy. There is moderate left and mild right neural foraminal stenosis. There is no spinal canal stenosis. C3-C4: Mild disc-osteophyte complex. There is moderate right and mild left uncovertebral joint arthropathy. There is mild to moderate bilateral facet joint arthropathy. There is mild bilateral neural foraminal stenosis. There is mild spinal canal stenosis. C4-C5: Moderate disc-osteophyte complex with superimposed central disc protrusion. There is severe right and moderate left uncovertebral joint arthropathy. There is mild to moderate bilateral facet joint arthropathy. There is severe right and mild to moderate left neural foraminal stenosis. There is moderate spinal canal stenosis. C5-C6: Fused at this level. There is moderate bilateral uncovertebral joint arthropathy. There is moderate bilateral facet joint arthropathy. There is severe left and moderate right neural foraminal stenosis. There is no spinal canal stenosis. C6-C7: Fused at this level. There is moderate bilateral uncovertebral joint arthropathy. There is moderate left and mild right facet joint arthropathy. There is mild left worse than right neural foraminal stenosis. There is no spinal canal stenosis. C7-T1: Moderate disc-osteophyte complex. There is moderate right and mild left uncovertebral joint arthropathy. There is moderate bilateral facet joint arthropathy. There is moderate right and mild left neural foraminal stenosis. There is no spinal canal stenosis. MR/MR cervical spine wo con IMPRESSION: Instrumented anterior fusion of C5-C7. Moderate multilevel degenerative spondyloarthropathy of the cervical spine as described in detail above. Most notably, there is moderate spinal canal stenosis at C4-C5. Mild spinal canal stenosis at C3-C4. Moderate to severe neural foraminal stenoses at C2-C3, C4-C5, C5-C6, and C7-T1. Dictated By: Jose David Pratt DO Signed By: <Electronically signed by Jose David Pratt DO in OV> 05/22/23 1641 DD/ 1041 TD/TT: Motor Bike Mechanic: MONIQUE Procedure Note Donotuseinterpreter, Image - 05/22/2023 [place] [id number] Magnetic Resonance Report Signed Patient: Ebony Landaverde RMR#: [id number] 96 : 1960cct:[id number] Age/Sex: 63 / FADM Date: 05/21/23 Loc: HO.MRI Attending Dr: Lyly Cam MD Ordering Physician: Lyly Cam MD Date of Service: 05/21/23 Procedure(s): MR cervical spine wo con Accession Number(s): [id number] cc: Lyly Cam MD EXAMINATION: MR CERVICAL SPINE WITHOUT CONTRAST CLINICAL INFORMATION: Cervical spinal stenosis. COMPARISON: Cervical spinal stenosis. TECHNIQUE: MRI of the cervical spine was obtained using routine sequences without contrast. FINDINGS: Instrumented anterior fusion of C5-C7. Minimal degenerative retrolisthesis of C4 on C5. Minimal degenerative anterolisthesis of T1 on T2. Otherwise, normal anatomic alignment. Moderate degenerative disc disease at C4-C5 and from C7-T3. Mild degenerative disc disease at all additional levels. Associated mixed Modic type discogenic and plate changes including mild Modic type I discogenic edema at C4-C5. Mild marrow edema within the posterior elements of C2-C3 and C4-C6 consistent with degenerative stress reaction. No additional suspicious marrow edema. The vertebral body heights are well-maintained. No demonstrated spinal cord signal abnormalities. Limited evaluation of the soft tissues of the neck without demonstrated abnormalities. The flow voids of the major cervical vessels are maintained. Normal appearance of the cervicomedullary junction and visualized posterior fossa. SPINAL LEVELS: C2-C3: Mild disc-osteophyte complex. There is mild bilateral uncovertebral joint arthropathy. There is severe left and mild right facet joint arthropathy. There is moderate left and mild right neural foraminal stenosis. There is no spinal canal stenosis. C3-C4: Mild disc-osteophyte complex. There is moderate right and mild left uncovertebral joint arthropathy. There is mild to moderate bilateral facet joint arthropathy. There is mild bilateral neural foraminal stenosis. There is mild spinal canal stenosis. C4-C5: Moderate disc-osteophyte complex with superimposed central disc protrusion. There is severe right and moderate left uncovertebral joint arthropathy. There is mild to moderate bilateral facet joint arthropathy. There is severe right and mild to moderate left neural foraminal stenosis. There is moderate spinal canal stenosis. C5-C6: Fused at this level. There is moderate bilateral uncovertebral joint arthropathy. There is moderate bilateral facet joint arthropathy. There is severe left and moderate right neural foraminal stenosis. There is no spinal canal stenosis. C6-C7: Fused at this level. There is moderate bilateral uncovertebral joint arthropathy. There is moderate left and mild right facet joint arthropathy. There is mild left worse than right neural foraminal stenosis. There is no spinal canal stenosis. C7-T1: Moderate disc-osteophyte complex. There is moderate right and mild left uncovertebral joint arthropathy. There is moderate bilateral facet joint arthropathy. There is moderate right and mild left neural foraminal stenosis. There is no spinal canal stenosis. MR/MR cervical spine wo con IMPRESSION: Instrumented anterior fusion of C5-C7. Moderate multilevel degenerative spondyloarthropathy of the cervical spine as described in detail above. Most notably, there is moderate spinal canal stenosis at C4-C5. Mild spinal canal stenosis at C3-C4. Moderate to severe neural foraminal stenoses at C2-C3, C4-C5, C5-C6, and C7-T1. Dictated By: Jose David Pratt DO Signed By: <Electronically signed by Jose David Pratt DO in OV> 05/22/23 1641 DD/ 1041 TD/TT: Motor Bike Mechanic: MONIQUE Lyly Cam MD IMG MRI PROCEDURES Final Result documented in this encounter Visit Diagnoses Diagnosis Cervical spinal stenosis- Primary Spinal stenosis in cervical region documented in this encounter Additional Health Concerns Assessment Noted Time PHQ-9 Depression Total Score: 0 03/21/20 22 1:05 PM EST documented as of this encounter Care Teams Operation Supervisor Relationship Specialty Start Date End Date Lyly Cam MD [address] [place] [address] PCP - General Family Medicine 03/07/12 Marcell Dutta, Juan José [address] [place] [phone] Pharmacist Internal Medicine 04/04/22 12/17/24 documented as of this encounter
--- OUTSIDE RECORDS SUMMARY | 2025-02-17 19:42 | XMS_ITS | Encounter Summary ---
Author Organization [employer] Address [address] [facility] 7t [place] [address] Care Team Providers Care Registry Nurse Name Role Phone Lyly Cam MD Primary Care Provider [phone] Marcell Dutta PharmD Unavailable [phone] Reason for Visit * Reason Comments Med Refill Encounter Details Date Type Department Care Team ([facility] st Contact Info) Description 04/02/2024 Refill [facility] [address] [place], [place] [phone] Nayana Bains MD [address] [place], [place] [phone] Dyslipidemia Social History Tobacco Use Types Packs/Day Years [...] as of this encounter Visit Diagnoses Diagnosis Dyslipidemia Other and unspecified hyperlipidemia documented in this encounter Additional Health Concerns Assessment Noted Time PHQ-9 Depression Total Score: 0 10/10/19 11:03 AM EDT documented as of this encounter Care Teams Registry Nurse Relationship Specialty Start Date End Date Lyly Cam MD [address] [place] [address] PCP - General Family Medicine 03/07/12 Marcell Dutta, DenizD [address] [place] [address] Pharmacist Internal Medicine 04/04/22 12/17/24 documented as of this encounter
--- OUTSIDE RECORDS SUMMARY | 2025-02-17 19:42 | XMS_ITS | Encounter Summary ---
Author Organization [employer] Address [address] [facility] 7t [place] [address] Care Team Providers Care Forest Fire Officer Name Role Phone Lyly Cam MD Primary Care Provider [phone] Marcell Dutta PharmD Unavailable [phone] Reason for Visit * Reason Comments Med Refill Encounter Details Date Type Department Care Team ([facility] st Contact Info) Description 09/12/2023 Refill [facility] [address] [place], [place] [phone] Lyly Cam MD [address] [place], [place] [phone] Dyslipidemia Social History Tobacco Use Types Packs/Day [...] documented as of this encounter Care Teams Forest Fire Officer Relationship Specialty Start Date End Date Lyly Cam MD [address] [place] [address] PCP - General Family Medicine 03/07/12 Marcell Dutta, DenizD [address] [place] [phone] Pharmacist Internal Medicine 04/04/22 12/17/24 documented as of this encounter
--- OUTSIDE RECORDS SUMMARY | 2025-02-17 19:42 | XMS_ITS | Encounter Summary ---
Author Organization [employer] Address [address] [facility] 7t [place] [address] Care Team Providers Care Circus Performer Name Role Phone Lyly Cam MD Primary Care Provider [phone] Marcell Dutta PharmD Unavailable [phone] Reason for Visit * Reason Comments Med Refill Encounter Details Date Type Department Care Team ([facility] st Contact Info) Description 04/29/2023 Refill [facility] [address] [place], [place] [phone] Lyly Cam MD [address] [place], [place] [phone] Vitamin D deficiency Social History Tobacco Use Types Packs/Day Years Used Date Smoking Tobacco: Never Passive Smoke Exposure: Never Smokeless Tobacco: Never Depression Answer Date Recorded Patient Health Questionnaire-9 Score 0 03/21/2022 Housing Stability Answer Date Recorded What is your housing situation today? I have rosita lakhani 01/16/[address] you li [...] the past 12 months, has t he [employer], gas, oil or water [employer] threatened to shut off services in your [...] documented as of this encounter Care Teams Circus Performer Relationship Specialty Start Date End Date Lyly Cam MD [address] [place] [address] PCP - General Family Medicine 03/07/12 Marcell Dutta, DenizD [address] [address] Pharmacist Internal Medicine 04/04/22 12/17/24 documented as of this encounter
--- OUTSIDE RECORDS SUMMARY | 2025-02-17 19:42 | XMS_ITS | Patient Health Record ---
Author Organization [facility] Address [address] [place] [address] Care Team Providers Care Supervisor Treating And Pumping Name Role Phone Kevin Early Unavailable [phone] Reason For Referral No Information Plan Of Treatment No Information
--- OUTSIDE RECORDS SUMMARY | 2025-02-17 19:42 | XMS_ITS | Encounter Summary ---
Author Organization [employer] Address [address] [facility] 7t [place] [address] Care Team Providers Care Shuttle Buggy Operator Name Role Phone Lyly Cam MD Primary Care Provider [phone] Marcell Dutta PharmD Unavailable [phone] Reason for Visit * Reason Comments Med Refill Encounter Details Date Type Department Care Team ([facility] st Contact Info) Description 03/24/2024 Refill [facility] [address] [place], [place] [phone] Nayana Bains MD [address] [place], [place] [phone] Dyslipidemia Social History Tobacco Use Types Packs/Day [...] documented as of this encounter Care Teams Shuttle Buggy Operator Relationship Specialty Start Date End Date Lyly Cam MD [address] [place] [address] PCP - General Family Medicine 03/07/12 Marcell Dutta, DenizD [address] [place] [address] Pharmacist Internal Medicine 04/04/22 12/17/24 documented as of this encounter
--- OUTSIDE RECORDS SUMMARY | 2025-02-17 19:42 | XMS_ITS | Encounter Summary ---
Author Organization [employer] Address [address] [facility] 7t [place] [address] Care Team Providers Care Manager Language Name Role Phone Lyly Cam MD Primary Care Provider [phone] Marcell Dutta PharmD Unavailable [phone] Reason for Visit * Reason Comments Med Refill Encounter Details Date Type Department Care Team ([facility] st Contact Info) Description 01/30/2023 Refill [facility] 230 [place], [place] [phone] Lyly Cam MD [address] [place], [place] [phone] Dyslipidemia Social History Tobacco Use Types Packs/Day Years Used Date Smoking Tobacco: Never Passive Smoke Exposure: Never Smokeless Tobacco: Never Depression Answer Date Recorded Patient Health Questionnaire-9 Score 0 03/21/2022 Housing Stability Answer Date Recorded What is your housing situation today? I have rositatamara lakhani 01/16/[address] you [...] documented as of this encounter Care Teams Manager Language Relationship Specialty Start Date End Date Lyly Cam MD [address] [place] [address] PCP - General Family Medicine 03/07/12 Marcell Dutta, DenizD [address] [place] [address] Pharmacist Internal Medicine 04/04/22 12/17/24 documented as of this encounter
--- OUTSIDE RECORDS SUMMARY | 2025-02-17 19:42 | XMS_ITS | Encounter Summary ---
Author Organization [employer] Address [address] [facility] 7t [place] [address] Care Team Providers Care [facility] Pricing Consultant Name Role Phone Lyly Cam MD Primary Care Provider [phone] Marcell Dutta PharmD Unavailable [phone] Reason for Visit * Reason Comments Med Refill Encounter Details Date Type Department Care Team ([facility] st Contact Info) Description 04/18/2024 Refill [facility] 230 [place], [place] [phone] Lyly Cam MD [address] [place], [place] [phone] Allergic rhinitis, unspecified seasonality, unspecified trigger; Vitamin D deficiency Social History Tobacco Use [...] as of this encounter Visit Diagnoses Diagnosis Allergic rhinitis, unspecified seasonality, unspecified trigger Vitamin D deficiency documented in this encounter Additional Health Concerns Assessment Noted Time PHQ-9 Depression Total Score: 0 10/10/19 11:03 AM EDT documented as of this encounter Care Teams Healthcare Network Pricing Consultant Relationship Specialty Start Date End Date Lyly Cam MD [address] [place] [address] PCP - General Family Medicine 03/07/12 Marcell Dutta, DenizD [address] [place] [address] Pharmacist Internal Medicine 04/04/22 12/17/24 documented as of this encounter
--- OUTSIDE RECORDS SUMMARY | 2025-02-17 19:42 | XMS_ITS | Encounter Summary ---
Author Organization [employer] Address [address] [facility] 7t [place] [address] Care Team Providers Care Pumping Supervisor Name Role Phone Lyly Cam MD Primary Care Provider [phone] Marcell Dutta PharmD Unavailable [phone] Reason for Visit * Reason Comments Med Refill Encounter Details Date Type Department Care Team ([facility] st Contact Info) Description 03/20/2024 Refill [facility] [address] [place], [place] [phone] Lyly Cam MD [address] [place], [place] [phone] Social History Tobacco Use Types Packs/Day Years [...] documented as of this encounter Care Teams Pumping Supervisor Relationship Specialty Start Date End Date Lyly Cam MD [address] [place] [address] PCP - General Family Medicine 03/07/12 Marcell Dutta, DenizD [address] [place] [address] Pharmacist Internal Medicine 04/04/22 12/17/24 documented as of this encounter
--- OUTSIDE RECORDS SUMMARY | 2025-02-17 19:42 | XMS_ITS | Encounter Summary ---
Author Organization [employer] Address [address] [facility] [address]t h Floor [place] [id number] Care Team Providers Care Commanding Officer Homicide Squad Name Role Phone Lyly Cam MD Primary Care Provider [phone] Marcell Dutta PharmD Unavailable [phone] Reason for Visit * Reason Comments Med Refill Encounter Details Date Type Department Care Team ([facility] st Contact Info) Description 11/20/2022 Refill [facility] [address] [place], [place] [phone] Lyly Cam MD [address] [place], [place] [phone] Dyslipidemia Social History Tobacco Use Types Packs/Day Years Used Date Smoking Tobacco: Never Passive Smoke Exposure: Never Smokeless Tobacco: Never Depression Answer Date Recorded Patient Health Questionnaire-9 Score 0 03/21/2022 Depression Answer Date Recorded Patient Health Questionnaire-2 [...] documented as of this encounter Care Teams Commanding Officer Homicide Squad Relationship Specialty Start Date End Date Lyly Cam MD [address] [place], [place] [phone] PCP - General Family Medicine 03/07/12 Marcell Dutta, DenizD [address] [place], [place] [address] [address] Pharmacist Internal Medicine 04/04/22 12/17/24 documented as of this encounter
--- OUTSIDE RECORDS SUMMARY | 2025-02-17 19:42 | XMS_ITS | Encounter Summary ---
Author Organization [employer] Address [address] [facility] 7t [place] [address] Care Team Providers Care Guyline Operator Name Role Phone Lyly aCm MD Primary Care Provider [phone] Marcell Dutta PharmD Unavailable [phone] Reason for Visit * Reason Comments Med Refill Encounter Details Date Type Department Care Team ([facility] st Contact Info) Description 04/18/2024 Refill [facility] [address] [place], [place] [phone] Nayana Bains MD [address] [place], [place] [phone] Dyslipidemia Social History Tobacco Use Types Packs/Day [...] documented as of this encounter Care Teams Guyline Operator Relationship Specialty Start Date End Date Lyly Cam MD [address] [place] [address] PCP - General Family Medicine 03/07/12 Marcell Dutta, DenizD [address] [place] [address] Pharmacist Internal Medicine 04/04/22 12/17/24 documented as of this encounter
--- OUTSIDE RECORDS SUMMARY | 2025-02-17 19:42 | XMS_ITS | Encounter Summary ---
Author Organization [employer] Address [address] [facility] 7t [place] [address] Care Team Providers Care Instructor Adjunct Surgical Technician Name Role Phone Lyly Cam MD Primary Care Provider [phone] Marcell Dutta PharmD Unavailable [phone] Reason for Visit * Reason Comments Med Refill Encounter Details Date Type Department Care Team ([facility] st Contact Info) Description 09/28/2023 Refill [facility] [address] [place], [place] [phone] Lyly Cam MD [address] [place], [place] [phone] Dyslipidemia Social History Tobacco Use Types Packs/Day [...] documented as of this encounter Care Teams Instructor Adjunct Surgical Technician Relationship Specialty Start Date End Date Lyly Cam MD [address] [place] [address] PCP - General Family Medicine 03/07/12 Marcell Dutta, DenizD [address] [place] [id number] Pharmacist Internal Medicine 04/04/22 12/17/24 documented as of this encounter
--- OUTSIDE RECORDS SUMMARY | 2025-02-17 19:42 | XMS_ITS | Encounter Summary ---
Author Organization [employer] Address [address] [facility] 7t [place] [address] Care Team Providers Care Disease Intervention Specialist Name Role Phone Lyly Cam MD Primary Care Provider [phone] Marcell Dutta PharmD Unavailable [phone] Reason for Visit * Reason Comments Med Refill Encounter Details Date Type Department Care Team ([facility] st Contact Info) Description 10/16/2024 Refill [facility] [address] [place], [place] [phone] Lyly Cam MD [address] [place], [place] [phone] Dyslipidemia Social History Tobacco Use Types Packs/Day [...] Time PHQ-9 Depression Total Score: 0 10/10/19 24 11:03 AM EDT documented as of this encounter Care Teams Disease Intervention Specialist Relationship Specialty Start Date End Date Lyly Cam MD [address] [place] [address] PCP - General Family Medicine 03/07/12 Marcell Dutta, DenizD [address] [place] [address] Pharmacist Internal Medicine 04/04/22 12/17/24 documented as of this encounter
--- OUTSIDE RECORDS SUMMARY | 2025-02-17 19:42 | XMS_ITS | Clinical Summary ---
Author Organization [employer] Address [address] [place] [address] Care Team Providers Care Board Machine Set Up Operator Name Role Phone Lyly Cam MD Primary Care Provider [phone] Allergies Active Allergy Reactions Criticality Noted Date Comments Amlodipine 10/13/2015 Atorvastatin 08/23/2012 Bupropion Hives 08/23/2023 Latex Rash Low 08/23/2023 Loratadine Headache 08/25/2013 Meperidine Rash Low 08/23/2012 Midazolam Rash Low 08/23/2012 Montelukast Headache 08/25/2013 Nickel Rash Low 08/23/2023 Simvastatin Itching 08/25/2013 Medications gabapentin (Neurontin) 300 MG capsule TAKE 1 CAPSULE BY MOUTH EVERY MORNING & AT BEDTIME 2 Active cholecalciferol (D3-1000) 25 MCG (1000 UT) capsuleIndicati ons:Vitamin D deficiency TAKE 1 CAPSULE BY MOUTH EVERY DAY IN THE MORNING 90 capsule 3 5 Active diphenhydrAMINE (Banophen) 25 MG tablet TAKE 1 TABLET BY MOUTH EVERY DAY AT BEDTIME NEEDED 90 tablet 3 5 Active lisinopril 40 MG tablet Take 1 tablet (40 mg) by mouth Once per day. 90 tablet 3 5 11/18/19 26 Active celecoxib (CeleBREX) 100 MG capsule TAKE 1 CAPSULE BY MOUTH ONCE OR TWICE DAILY NEEDED FOR MODERATE TO SEVERE PAIN 60 capsule 2 5 Active cyclobenzaprine (Flexeril) 5 MG tablet TAKE 1 OR 2 TABLETS BY MOUTH AT BEDTIME NEEDED FOR MUSCLE SPASM 60 tablet 1 5 Active clobetasol (Temovate) 0.05 % ointment APPLY TO AFFECTED AREA TWICE A DAY 45 g 1 5 Active fluticasone (Flonase) 50 MCG/ACT nasal spray ADMINISTER 1-2 SPRAYS INTO EACH NOSTRIL ONCE PER DAY. SHAKE GENTLY. BEFORE FIRST USE, PRIME PUMP. AFTER USE, CLEAN TIP AND REPLACE CAP. 48 mL 5 12/17/19 26 Active rosuvastatin (Crestor) 5 MG tabletIndicatio ns:Dyslipidemia TAKE 1 TABLET BY MOUTH EVERY DAY IN THE MORNING 90 tablet 3 5 Active omeprazole (PriLOSEC) [address] capsuleIndicati ons:Dyslipidemi a TAKE 1 CAPSULE BY MOUTH ONCE DAILY BEFORE A MEAL 90 capsule 5 Active cromolyn (Opticrom) 4 % ophthalmic solution ADMINISTER 1 DROP INTO BOTH EYES FOUR TIMES DAILY 10 mL 3 5 Active cetirizine (ZyrTEC) 10 MG tabletIndicatio ns:Nasal congestion Take 1 tab daily as needed for allergies or congestion 90 tablet 1 5 Active Active Problems Problem Noted Date Diagnosed Date Generalized anxiety disorder 02/17/2025 Chronic neck pain 08/11/2024 Assessment & Plan [...] Plan (08/17/2024 7:21 PM EDT): -Followed by [facility] providers and [facility] neurosurgeon. -Last seen by neurosurgeon in August [...] Plan (01/16/2024 1:43 PM EDT): -Followed by [facility] providers and [facility] neurosurgeon. -Last seen by neurosurgeon in August [...] Plan (10/10/2023 5:45 AM EDT): -Followed by [facility] providers and [facility] neurosurgeon. -Last seen by neurosurgeon in August [...] Plan (06/07/2023 6:20 AM EDT): -Followed by [facility] providers and neurosurgeon. -Last [...] Plan (03/18/2023 11:23 AM EST): -Followed by [facility] providers and neurosurgeon. -Last seen by neurosurgeon in JanFeb 2019 -Last seen by PSS provider in May 2019 -s/p ACDF C5-C7 on 07/01/[address] Horn -Continue gabapentin 300 mg bid - Add lidocaine patch - refer back to neurosurgery Assessment & Plan (12/01/2022 6:04 AM EDT): -Followed by [facility] providers and neurosurgeon. -Last seen by neurosurgeon in JanFeb 2019 -Last seen by PSS provider in May 2019 -s/p ACDF C5-C7 on 07/01/[address] Horn -Tapered down Gabapentin, now maintained at 300 mg bid -Re-evaluate with CT due to worsening pain Assessment & Plan (03/20/2022 10:36 AM EST): -Followed by [facility] providers and neurosurgeon. -Last seen by neurosurgeon in JanFeb 2019 -Last seen by PSS provider in May 2019 -s/p ACDF C5-C7 on 07/01/[address] Horn -Tapered down Gabapentin, now maintained at 300 mg bid Depression 03/20/2022 Assessment & Plan (10/09/2023 9:46 PM [...] EST): -Hx PTSD -Ending long-term relationship in 2020 [...] severe areas Dyslipidemia 09/16/2014 Assessment & Plan (11/17/2024 11:52 AM EDT): -10/11/23 TC 179; TG 116; HDL 54; LDL 102 -Current medication: rosuvastatin 5 mg daily -Treatment Hx: intolerance to atorvastatin, simvastatin -Continue working on lifestyle modification Assessment & Plan (08/11/2024 1:09 PM EDT): [...] -continue omeprazole Hypertension 08/23/2012 Assessment & Plan (11/17/2024 11:57 AM EDT): -Goal BP < 130/80 per ACC/AHA [...] working on lifestyle modifications and medication adherence. -Discontinue olmesartan 40 mg qAM per patient's request -Restart lisinopril 40 mg daily -Treatment Hx: nifedipine was discontinued due to headache; atenolol was discontinued due to symptomatic hypotension, chlorthalidone was discontinued due to hypotension, hctz 25 mg caused fatigue, and amlodipine was discontinued due to abdominal pain and LE edema; metoprolol was discontinued due to patient's perception of memory impairment. Lisinopril was discontinued and switched to olmesartan due to ineffectiveness and dizziness. -patient has chronic dizziness, and does not appear to be medication side effect -Consider combo med in the future Assessment & Plan (08/17/2024 7:15 PM EDT): [...] are normal. -Co-managed with our pharmacist through [employer] -Continue checking home BP -Completed 24 hour [...] and side effects. --f/u in 3 month Prediabetes 08/23/2012 Assessment & Plan (11/17/2024 11:58 AM EDT): -Since 2019 A1C > 5.9%, the highest 6.1% in 7818-6607 -12/15/21 6.0% -11/28/22 5.8% -10/10/23 6.3% - 10/11/23 5.9% -Family Hx DM (mother and daughter) -Continue working on lifestyle modification -Continue screening q6-12 mo Assessment & Plan (08/11/2024 1:39 PM EDT): -Since 2019 A1C > 5.9%, the highest 6.1% in 3200-6827 -12/15/21 6.0% -11/28/22 5.8% -10/10/23 6.3% - 10/11/23 5.9% -Family Hx DM (mother and daughter) -Continue working on lifestyle modification -Continue screening q6-12 mo Assessment & Plan (01/16/2024 1:41 PM EDT): -Since 2019 A1C > 5.9%, the highest 6.1% in 0282-4847 -12/15/21 6.0% -11/28/22 5.8% -10/10/23 6.3% -Family Hx DM (mother and daughter) -Continue working on lifestyle modification -Continue screening q6-12 mo Assessment & Plan (10/09/2023 9:45 PM EDT): -Since 2019 A1C > 5.9%, the highest 6.1% in 9622-2009 -12/15/21 6.0% -11/28/22 5.8% -Family Hx DM (mother and daughter) -Continue working on lifestyle modification -Continue screening q6-12 mo Assessment & Plan (06/23/2023 6:33 AM EDT): -Since 2019 A1C > 5.9%, the highest 6.1% in 5442-0565 -12/15/21 6.0% -11/28/22 5.8% -Family Hx DM (mother and daughter) -Continue working on lifestyle modification -Continue screening q6-12 mo Assessment & Plan (03/18/2023 11:31 AM EST): -Since 2019 A1C > 5.9%, the highest 6.1% in -12/15/21 6.0% -11/28/22 5.8% -Family Hx DM (mother and daughter) -Continue working on lifestyle modification -Continue screening q6-12 mo Assessment & Plan (07/13/2022 11:47 AM EDT): -Since 2019 A1C > 5.9%, the highest 6.1% in 12/15/21 6.0% -Family Hx DM (mother and daughter) -Continue working on lifestyle modification -Continue screening q6-12 mo Assessment & Plan (03/20/2022 10:39 AM EST): -Since 2019 A1C > 5.9%, the highest 6.1% in 12/15/21 6.0% -Family Hx DM (mother and daughter) -Continue working on lifestyle modification -Continue screening q6-12 mo Insomnia 08/23/2012 Assessment & Plan (03/21/2022 3:59 PM EST): -Stress reduction -Practice healthy sleep hygiene Encounters Date Type Department Care Team Description 02/17/2025 11:15 AM EST Office Visit [address] [phone] Lyly Cam MD Hypertension, unspecified type (Primary Dx); Dyslipidemia; Prediabetes; Gastroesophageal reflux disease, unspecified whether esophagitis present; Globus sensation; Current moderate episode of major depressive disorder, unspecified whether recurrent (CMS/HCC) (HCC); Generalized anxiety disorder; Chronic neck pain; Migraine without status migrainosus, not intractable, unspecified migraine type; Atopic dermatitis, unspecified type; Psychophysiological insomnia; Peripheral vertigo, unspecified laterality; Encounter for immunization; Cervical spinal stenosis; Malodorous urine 02/17/2025 Travel 02/16/[address] [phone] Lyly Cam MD chartprep 12/17/2024 2:00 PM EDT Telemedicine [address] [address] Marcell Dutta, PharmD Hypertension, unspecified type (Primary Dx) 12/15/2024 Refill [facility] [address] [place] [address] Lyly Cam MD Dyslipidemia; Nasal congestion 12/15/2024 Refill [facility] [address] [place] [address] Nakia Ponce MD 12/15/2024 Refill [facility] [address] [place] [address] Denae Decker ANP Nasal congestion 12/14/2024 Refill [facility] [address] [place] [address] Lyly Cam MD 11/24/2024 Refill [facility] [address] [place] [address] Lyly Cam MD 11/17/2024 11:15 AM EDT Office Visit [facility] [address] [place] [address] [phone] Lyly Cam MD Hypertension, unspecified type (Primary Dx); Dyslipidemia; Impaired fasting glucose 11/17/2024 Travel from Last 3 Months Immunizations Immunization Administration Dates Next Due Influenza injectable quadriv alent IIV4 with preservative 01/01/2018,04/17/2017,01/18/2016,03/02 Influenza injectable quadriv alent preservative free 12/08/2021,12/13/2020,04/28/2019 Influenza, IIV3, injectable 01/01/2014, 1 Influenza, Split (incl. eleazar fied surface antigen) 01/24/2013 Influenza, seasonal, injecta ble, preservative free 02/17/2025,01/16/2024 Pfizer Covid-19 Vaccine 12+ 04/18/2021,,08/13/2020 Pfizer Covid-19 Vaccine 12+ Bivalent 01/17/2022 Pneumococcal [...] 22 02/17/2025 11:00 AM EST Oxygen Saturation 99% 11/17/2024 11:57 AM EDT Inhaled Oxygen Concentration - - Weight 79.4 kg (175 lb) 02/17/2025 11:00 AM EST Height 160 cm (5' 3 ) 02/17/2025 11:00 AM EST Body Mass Index 31 02/17/2025 11:00 AM EST Plan of Treatment Health Maintenance Due Date Last Done Comments CT Colonography 1960 FIT DNA/Cologuard 1960 FIT 1960 FOBT 1960 Sigmoidoscopy 1960 COVID-19 Vaccine ( season) 2024 01/17/2022, 04/18/2021, 09/03/2020, Additional history exists Depression Monitoring 05/20/2025 11/17/2024, 025 Alcohol/Substance Use Screening 08/11/2025 08/11/2024 Disability Screening 08/11/2025 08/11/2024 SDOH Screening 08/11/2025 08/11/2024 Cervical Cancer Screening 01/19/2026 HPV/Cotest 01/19/2026 01/19/2021 Pap Smear 01/19/2026 01/19/2021 Diabetes: Hemoglobin A1C 02/11/2026 025, 10/11/2023, 10/10/2023, Additional history exists Tobacco Screening 02/17/2026 02/17/2025 Colonoscopy 09/14/2026 09/14/2016 Colorectal Cancer Screening 09/14/2026 Mammogram 10/15/2026 10/15/2024, 08/25, 08/23/2022, Additional history exists Lipid Panel 02/11/2030 02/11/2025, 09/23, 11/28/2022, Additional history exists DTaP/Tdap/Td Vaccines (4 - Td or Tdap) 07/13/2032 07/13/2022, 07/13/2022, 08/23/2012, Additional history exists RSV Patients and Patients Aged 60 years or older (1 - 1-dose 75+ series) 02/20/2036 HIV Screening Completed 01/29/2018 Hepatitis C Screening Completed 01/29/2018 Zoster Vaccines Completed 09/20/2020, 04/28/2019 Pneumococcal Vaccine: 50+ Years Completed 08/11/2024, 08/30/2008 Influenza Vaccine Completed 02/17/2025, , 12/08/2021, Additional history exists HIB Vaccines Aged Out No longer eligi [...] on patient's age to complete this topic Procedures Procedure Name Priority Date/Time Associated Diagnosis Comments URINALYSIS, COMPLETE, WITH REFLEX TO CULTURE Routine 02/17/2025 4:19 PM EST Malodorous urine HEMOGLOBIN A1C Routine 02/11/2025 10:10 AM EST Impaired fasting glucose BASIC METABOLIC PANEL Routine 02/11/2025 10:10 AM EST Hypertension, unspecified type ALBUMIN, RANDOM URINE W/CREATININE Routine 02/11/2025 10:10 AM EST Hypertension, unspecified type HEPATIC FUNCTION PANEL Routine 10:10 AM EST Dyslipidemia LIPID PANEL WITH REFLEX TO DIRECT LDL Routine 02/11/2025 10:10 AM EST Dyslipidemia BI MAMMOGRAM SCREENING TOMOSYNTHESIS BILATERAL Routine 10/15/2024 3:08 PM EDT THINPREP IMAGING PAP AND HPV MRNA E6/E7 WITH REFLEX TO HPV 16,18/45 Routine 01/19/2021 4:11 PM EDT HM HEPATITIS C ANTIBODY Routine 01/29/2018 HM HIV 1/2 ANTIGEN AND ANTIBODY Routine 01/29/2018 HM COLONOSCOPY Routine 09/14/2016 from Last 3 Months or Most Recently Relevant to Health Maintenance Results * (ABNORMAL) Urinalysis, Complete, with Reflex to Culture (02/17/2025 4:19 PM EST) Color Urine Yellow [facility] Appearance Urine Clear [facility] PH 6.0 5.0 - 9.0 [facility] Glucose Urine UA Negative Negative mg/dL [facility] Urine Blood Negative Negative [facility] Specific [place] - Urine 1.025 1.005 - 1.025 [facility] Urine Protein Negative Neg-Trace mg/dL [facility] Urine Ketones Negative Negative mg/dL [facility] Nitrite Urine Negative Negative [facility] Leukocyte Esterase Urine Trace(A) Negative [facility] RBC Urine 0-2 0 - 2 /HPF [facility] Urine WBC 0-5 0 - 5 /HPF [facility] Urine Squamous Epithelial Cell 0-2 0 - 2 /HPF [facility] Urine Bacteria None Seen None Seen [facility] Hyaline Casts, Urine 0-2 0 - 2 /LPF [facility] Urine 02/17/2025 4:19 PM EST 02/17/2025 6:09 PM EST Narrative [facility] - 02/17/2025 7:02 PM EST Urine, Clean Catch us Lyly Cam MD LAB URINE ORDERABLES Final Resul t [facility] [address] [place] [phone] * (ABNORMAL) Lipid Panel with Reflex to Direct LDL (02/11/2025 10:10 AM EST) Triglycerides 82 <150 mg/dL [facility] Comment:Desirable Triglyceri de: less than 150 mg/dLBorderline High Triglyceride 150-199 mg/dLHigh Triglyceride: 200-499 mg/dLVery High Triglyceride: greater than or equal to 5OO mg/dL Cholesterol 190 <200 mg/dL [facility] Comment:Desirable Cholestero l: less than 200 mg/dLBorderline High Cholesterol: 200-239 mg/dLHigh Cholesterol: greater than 239 mg/dL LDL Cholesterol Calculated 116(H) <100 mg/dL [facility] Comment:Desirable LDL: less than 100 mg/dLNear Optimal/Above Optimal LDL: 110- 129 mg/dLBorderline High LDL: 130-159 mg/dLHigh LDL: 160-189 mg/dLVery High LDL: greater than or equal to 190 mg/dL HDL Cholesterol 58 >40 mg/dL [facility] Comment:Desirable HDL: great er than 40 mg/dL Note: This HDL assay may give artificially low results in patients with liver disease. Blood 02/11/2025 10:1 0 AM EST 02/11/2025 11:01 AM EST us Lyly Cam MD LAB BLOOD ORDERABLES Final Resul t [facility] [address] [place] [phone] * Albumin, Random Urine W/Creatinine (02/11/2025 10:10 AM EST) Creatinine, Urine 209.41 mg/dL [facility] Microalbumin Urine 13.0 mg/L [facility] Microalbum Creatinine Ratio Ur 6.2 <30 ug/mg cr [facility] Comment:Albumin/Creatinine R atio Reference Ranges: Normal: < 30 ug/mg creatinine Microalbuminuria: 30 - 300 ug/mg creatinineClinical Albuminuria: > 300 ug/mg creatinine Urine 02/11/2025 10:1 0 AM EST 02/11/2025 11:06 AM EST us Lyly Cam MD LAB URINE ORDERABLES Final Resul t Performing Organization Address [facility] de Phone Number [facility] [address] [place] [phone] * (ABNORMAL) Hemoglobin A1c (02/11/2025 10:10 AM EST) Hemoglobin A1c 6.4(H) <6.0 % [facility] Comment:Hemoglobin A1C Refer ence Range Adults: 4.8 - 6.0 % Non diabetic: < 6.0 % Goal: < 7.0 %Additional Action Suggested: > 8.0 %Note: Hemoglobin A1c results are invalid for patients with abnormal amounts of HbF. Blood transfusions may impact the HbA1c concentration in the patient sample. Estimated Average Glucose 137 mg/dL [facility] Comment:eAG = Estimated ave rage glucose which is %A1C expressed asaverage glucose, using the formula of the A6P-VyhtapmHlhpjvp Glucose study (ADAG), Diabetes Care, Vol.31,#8,Oct. 2007 Blood Venous blood specimen / Unknown 02/11/2025 10:10 AM EST 02/11/2025 11:01 AM EST us Lyly Cam MD LAB BLOOD ORDERABLES Final Resul t Performing Organization Address [facility] Co de Phone Number [facility] [address] [place] [phone] * Hepatic Function Panel (02/11/2025 10:10 AM EST) Bilirubin, Total 0.6 0.0 - 1.0 mg/dL [facility] Bilirubin, Direct 0.2 0.0 - 0.5 mg/dL [facility] Aspartate Amino Transferase 27 5 - 31 U/L [facility] Alanine Aminotransferase 20 0 - 31 U/L [facility] Total Protein 7.6 6.5 - 8.0 g/dL [facility] Albumin Level 4.5 3.5 - 5.0 g/dL [facility] Alkaline Phosphatase 55 39 - 117 U/L [facility] Blood Venous blood specimen / Unknown 02/11/2025 10:10 AM EST 02/11/2025 11:01 AM EST Lyly Cam MD LAB BLOOD ORDERABLES Final Resul t Performing Organization Address City/[facility]/ZIP Co de Phone Number [facility] [address] [place] [phone] * (ABNORMAL) Basic Metabolic Panel (02/11/2025 10:10 AM EST) Sodium 141 135 - 145 mmol/L [facility] Potassium 3.6 3.3 - 5.1 mmol/L [facility] Chloride 104 96 - 108 mmol/L [facility] Carbon Dioxide 29 22 - 29 mmol/L [facility] Anion Gap 12 12 - 20 [facility] Urea Nitrogen (BUN) 20(H) 9 - 16 mg/dL [facility] Creatinine, Serum 0.87 0.5 - 1.4 mg/dL [facility] Estimated Glomerular Filt Rate >60 [facility] Comment:Chronic Kidney Disea se: Estimated GFR < 60 mL/min/[id number] Kidney Disease: Estimated GFR < 15 mL/min/1.73m2 Glucose 94 60 - 115 mg/dL [facility] Calcium 9.8 8.4 - 10.2 mg/dL [facility] Blood Venous blood specimen / Unknown 02/11/2025 10:10 AM EST 02/11/2025 11:01 AM EST Lyly Cam MD LAB BLOOD ORDERABLES Final Resul t Performing Organization Address City/[facility]/ZIP Co de Phone Number [facility] [address] [place] [phone] * BI Mammogram Screening Tomosynthesis Bilateral (10/15/2024 3:08 PM EDT) Anatomical Region Laterality Modality Breast Bilateral Mammography 10/15/2024 3:08 PM EDT Narrative 10/21/2024 7:50 PM EDT [facility] [address] [place] [address] Mammography Report Signed Patient: Ebony Landaverde MR#: [id number] 96 : 1960 Acct:[id number] Age/Sex: 64 / F ADM Date: 10/15/24 Loc: HO.MAMMO Attending Dr: Lyly Cam MD Ordering Physician: Lyly Cam MD Results: 1Negative Date of Service: 10/15/24 Follow Up: 1 Year From [facility]a Mammogram Procedure(s): MM tomosynthesis screening BI Accession Number(s): [id number] cc: Lyly Cam MD EXAMINATION: MM SCREENING DIGITAL BREAST TOMOSYNTHESIS, BILATERAL CLINICAL INFORMATION: Screening. Asymptomatic. COMPARISON: Comparison made to multiple prior, most recent September 18, 2023, and most remote March 21, 2019. TECHNIQUE: Digital breast tomosynthesis is performed in both the craniocaudal and mediolateral oblique views along with computer-aided detection (CAD). Synthesized 2D images are generated from the tomosynthesis. FINDINGS: BREAST COMPOSITION: There are scattered areas of fibroglandular density (ACR BI-RADS breast composition Category b). BILATERAL BREASTS: No significant masses, suspicious calcifications or other abnormalities are seen in either breast. MM/MM tomosynthesis screening BI IMPRESSION: BILATERAL BREASTS: Negative, no mammographic evidence of malignancy. Normal interval follow-up is recommended in 12 months. ASSESSMENT: BI-RADS 1 - Negative RECOMMENDATION: Routine annual mammography screening. FOLLOW-UP: 1 year F/U This examination should not preclude the clinical evaluation of a suspicious palpable abnormality. This patient's information was entered into a reminder system with a target due date for their next mammogram. Electronically signed by: Alexa Kim MD 10/21/2024 07:46 PM EDT Dictated By: Alexa Kim MD Signed By: <Electronically signed by Alexa Kim MD in OV> 10/21/24 1946 DD/ 1508 TD/TT: 10/15/24 1528 Museum Librarian: Procedure Note Donotuseinterpreter, Image - 10/21/2024 [facility] [address] [place] [address] Mammography Report Signed Patient: Ebony Landaverde RMR#: [id number] [birth year] : 1960cct:[id number] Age/Sex: 64 / FADM Date: 10/15/24 Loc: MAMMAlyce Attending Dr: Lyly Cam MD Ordering Physician: Lyly Cam MDResults: 1Negative Date of Service: 10/15/24Follow Up: 1 Year From Orig ina Mammogram Procedure(s): MM tomosynthesis screening BI Accession Number(s): [id number] cc: Lyly Cam MD EXAMINATION: MM SCREENING DIGITAL BREAST TOMOSYNTHESIS, BILATERAL CLINICAL INFORMATION: Screening. Asymptomatic. COMPARISON: Comparison made to multiple prior, most recent September 18, 2023, and most remote March 21, 2019. TECHNIQUE: Digital breast tomosynthesis is performed in both the craniocaudal and mediolateral oblique views along with computer-aided detection (CAD). Synthesized 2D images are generated from the tomosynthesis. FINDINGS: BREAST COMPOSITION: There are scattered areas of fibroglandular density (ACR BI-RADS breast composition Category b). BILATERAL BREASTS: No significant masses, suspicious calcifications or other abnormalities are seen in either breast. MM/MM tomosynthesis screening BI IMPRESSION: BILATERAL BREASTS: Negative, no mammographic evidence of malignancy. Normal interval follow-up is recommended in 12 months. ASSESSMENT: BI-RADS 1 - Negative RECOMMENDATION: Routine annual mammography screening. FOLLOW-UP: 1 year F/U This examination should not preclude the clinical evaluation of a suspicious palpable abnormality. This patient's information was entered into a reminder system with a target due date for their next mammogram. Electronically signed by: Alexa Kim MD 10/21/2024 07:46 PM EDT RP Dictated By: Alexa Kim MD Signed By: <Electronically signed by Alexa Kim MD in OV> 10/21/241945 DD/ 1508 TD/TT: 10/15/24 1528 Museum Librarian: Lyly Cam MD IM BI PROCEDURES Final Result * THINPREP TIS PAP AND HPV mRNA E6/E7 REFLEX HPV 16,18/45 (01/19/2021 4:11 PM EDT) Clinical Information: None given [facility] COMMENT SEE COMMENT [facility] [...] has been evaluated with computer assisted technology. [facility] Data Entry Machine Operator: SEE COMMENT [facility] Comment: SL, CT(ASCP) CT screening location: [place] [address] HPV nRNA E6/E7 Not Detected Not Detected [facility] Comment: Methodology: Incident Response Specialist-Mediated Amplification This assay detects E6/E7 viral messenger RNA (mRNA) from 14 high-risk HPV types (16,18,31,33,35,39,45,51,52,56,58,59,66,68). The analytical performance characteristics of this assay have been determined by [employer]. The modifications have not been cleared or approved by the FDA. This assay has been validated pursuant to the CLIA regulations and is used for clinical purposes. For additional information, please refer to http://education.[employer]/faq/GOB761e3 (This link if provided for information/ educational [...] R esult [facility] [address] * Hepatitis C Antibody (01/29/2018) Hepatitis C Antibody Nonreactive Blood 01/29/2018 Historical Provider MD HEALTH MAINTENANCE Final Result * HIV 1/2 Antigen and Antibody (01/29/2018) HIV Ag/Ab Nonreactive 01/29/2018 Historical Provider MD HEALTH MAINTENANCE Final Result * Colonoscopy (09/14/2016) Colonoscopy Normal Normal 09/14/2016 Lindsay [place] [facility] MAINTENANCE Edited Result - Final from Last 3 Months or Most Recently Relevant to Health [place] [id number] [facility] C3 Advance Directives Documents on File Type Date Recorded 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
== END 2025-02-17 18:09 | disposition home or self-care (01) ==
LOC: HO.HHCLNP 18:08
PROVIDERS: Visit Provider Family Medicine
DX: R82.90 Unspecified abnormal findings in urine (principal)
CPT/HCPCS: 81001

== ENCOUNTER 2025-02-20 13:24 | Emergency (ER) | payer MEDICAID, SELFPAY ==
--- OUTSIDE RECORDS SUMMARY | 2025-02-17 11:15 | XMS_ITS | Encounter Summary ---
Author Organization [employer] Address [address] [place] [address] [address] [address] Care Team Providers Care Ribbon Inker Name Role Phone Lyly Cam MD Primary Care Provider [phone] Reason for Referral * Consultation (Routine) - Closed Specialty Diagnoses / Procedures Referred By Mindy calderon Referred To Contact Physical Therapy Diagnoses Chronic neck pain Peripheral vertigo, unspecified laterality Cervical spinal stenosis [place] [address] Phone: tel: fax: [facility] Therapy [address] [place] [address] Phone: tel: fax: Referral ID Status Reason Start Date Expiration Date V isits Requested Visits Authorized [id number] Closed Specialty Services Required 02/17/2025 02/17/2026 1 1 Reason for Visit * Reason Comments Follow-up Hypertension Encounter Details Date Type Department Care Team (Late st Contact Info) Description 02/17/2025 11:15 AM EST Office Visit [facility] [address] [place], [place] [phone] Lyly Cam MD [address] [place], [place] [phone] Hypertension, unspecified type (Primary Dx); Dyslipidemia; Prediabetes; Gastroesophageal reflux disease, unspecified whether esophagitis present; Globus sensation; Current moderate episode of major depressive disorder, unspecified whether recurrent (CMS/HCC) (HCC); Generalized anxiety disorder; Chronic neck pain; Migraine without status migrainosus, not intractable, unspecified migraine type; Atopic dermatitis, unspecified type; Psychophysiological insomnia; Peripheral vertigo, unspecified laterality; Encounter for immunization; Cervical spinal stenosis; Malodorous urine Social History Tobacco Use Types Packs/Day Years Used Date Smoking Tobacco: Never Passive Smoke Exposure: Never Smokeless Tobacco: Never Depression Answer Date Recorded Patient Health Questionnaire-9 Score 10 11/17/2024 Patient Health Questionnaire-9 Score 10 11/17/2024 Last PHQ-9: Questionnaire Data Not on file 0 11/17/2024 Housing Stability Answer Date Recorded What is your housing situation today? I have rosita lakhani 08/11/[address] you li [...] Answer Date Recorded Patient Health Questionnaire-2 Score 2 11/17/2024 Internet Access Answer Date Recorded Internet Access Q1 Yes 08/11/2024 Internet Access Q2 Not on file 08/11/2024 Comments No Sex and Gender Information Value Date Recorded Sex Assigned at Female 01/23/2022 10:14 AM EDT Legal Sex Female 10:14 AM EDT Gender Identity Female 01/23/2022 10:14 AM EDT Sexual Orientation Choose not to disclose 2021 10:14 AM EDT documented as of this encounter Last Filed Vital Signs Vital Sign Reading Time Taken Comments Blood Pressure 148/90 02/17/2025 11:00 AM EST Pulse 98 02/17/2025 11:00 AM EST Temperature 36.2 C (97.1 F) 02/17/2025 11:00 AM EST Respiratory Rate 22 02/17/2025 11:00 AM EST Oxygen Saturation - - Inhaled Oxygen Concentration - - Weight 79.4 kg (175 lb) 02/17/2025 11:00 AM EST Height 160 cm (5' 3 ) 02/17/2025 11:00 AM EST Body Mass Index 31 02/17/2025 11:00 AM EST documented in this encounter Plan of Treatment Scheduled Referrals Name Type Priority Associated Diagnoses Orde r Schedule Referral to Physical Therapy Outpatient Referral Routine Chronic neck pain Peripheral vertigo, unspecified laterality Cervical spinal stenosis Expected: 02/17/2025 (Approximate), Expires: 02/17/2026 documented as of this encounter Procedures Procedure Name Priority Date/Time Associated Diagnosis Comments URINALYSIS, COMPLETE, WITH REFLEX TO CULTURE Routine 02/17/2025 4:19 PM EST Malodorous urine documented in this encounter Results * (ABNORMAL) Urinalysis, Complete, with Reflex to Culture (02/17/2025 4:19 PM EST) Color Urine Yellow [facility] Appearance Urine Clear [facility] PH 6.0 5.0 - 9.0 [facility] Glucose Urine UA Negative Negative mg/dL [facility] Urine Blood Negative Negative [facility] Specific [place] - Urine 1.025 1.005 - 1.025 [facility] Urine Protein Negative Neg-Trace mg/dL [facility] Urine Ketones Negative Negative mg/dL [facility] Nitrite Urine Negative Negative [facility] Leukocyte Esterase Urine Trace(A) Negative [facility] RBC Urine 0-2 0 - 2 /HPF [facility] Urine WBC 0-5 0 - 5 /HPF [facility] Urine Squamous Epithelial Cell 0-2 0 - 2 /HPF [facility] Urine Bacteria None Seen None Seen [facility] Hyaline Casts, Urine 0-2 0 - 2 /LPF [facility] Urine 02/17/2025 4:19 PM EST 02/17/2025 6:09 PM EST Narrative [facility] - 02/17/2025 7:02 PM EST Urine, Clean Catch Lyly Cam MD LAB URINE ORDERABLES Final Resul t [facility] [address] [place] [address] [phone] documented in this encounter Visit Diagnoses Diagnosis Hypertension, unspecified type- Primary Dyslipidemia Other and unspecified hyperlipidemia Prediabetes Other abnormal glucose Gastroesophageal reflux disease, unspecified whether esophagitis present Globus sensation Gastrointestinal malfunction arising from mental factors Current moderate episode of major depressive disorder, unspecified whether recurrent (CMS/HCC) (HCC) Generalized anxiety disorder Chronic neck pain Cervicalgia Migraine without status migrainosus, not intractable, unspecified migraine type Atopic dermatitis, unspecified type Psychophysiological insomnia Persistent disorder of initiating or maintaining sleep Peripheral vertigo, unspecified laterality Encounter for immunization Cervical spinal stenosis Spinal stenosis in cervical region Malodorous urine documented in this encounter Additional Health Concerns Assessment Noted Time PHQ-9 Depression Total Score: 10 025 12:00 PM EDT documented as of this encounter Care Teams Ribbon Inker Relationship Specialty Start Date End Date Lyly Cam MD [address] [place] [address] PCP - General Family Medicine 03/07/12 documented as of this encounter
--- NOTE | ~2025-02-20 | CT_ITS ---
EXAMINATION: CT CERVICAL SPINE WITHOUT CONTRAST CLINICAL INFORMATION: Fall, head strike COMPARISON: CT 01/15/2023, CT 01/15/2023 TECHNIQUE: Axial imaging. Sagittal and coronal reconstructions. This CT examination was performed using dose optimization techniques as appropriate, variously including the following: *Automated exposure control *Adjustment of mA and/or kV according to patient size (this includes techniques or standardized protocols for targeted exams where dose is matched to indication/reason for exam; i.e. extremities or head) *Use of iterative reconstruction technique FINDINGS: Straightening of the cervical curvature. Predens space is maintained. Small chronic ossification inferior to the dens, unchanged from previous. Redemonstrated are postsurgical changes from C5-C7 ACDF with solid interbody arthrodesis at these levels. Postsurgical changes from anterior spinal fusion at C4-5. Anterior fusion hardware at C4-5, with intact hardware. No visible acute fracture or acute subluxation. Vertebral body alignment is maintained. Multilevel mild disc and facet degeneration. No significant osseous bony canal narrowing. No prevertebral soft tissue swelling. Esophagus is nondistended. Trachea is patent. Stable 4 mm right thyroid nodule, below size criteria for imaging follow-up. 3 mm nodule right upper lung, stable. CT/CT cervical spine wo IV con IMPRESSION: * Postsurgical changes from anterior spinal fusion at C5-7, and C4-5. Hardware is intact. * No CT evidence of acute fracture or traumatic malalignment. * Additional findings and details as above. Fleischner guidelines were followed. Electronically signed by: Eliecer Brown MD 02/20/2025 03:11 PM LETITIA
--- NOTE | ~2025-02-20 | CT_ITS ---
EXAMINATION: CT HEAD WITHOUT CONTRAST CLINICAL INFORMATION: Fall, head strike COMPARISON: No prior. TECHNIQUE: Contiguous axial imaging was performed from the skull base to vertex without intravenous administration of contrast. This CT examination was performed using dose optimization techniques as appropriate, variously including the following: *Automated exposure control *Adjustment of mA and/or kV according to patient size (this includes techniques or standardized protocols for targeted exams where dose is matched to indication/reason for exam; i.e. extremities or head) *Use of iterative reconstruction technique FINDINGS: There is no evidence of intracranial hemorrhage or extra-axial fluid collection. There is no mass effect, or edema. No CT evidence of acute territorial infarct. Ventricles, sulci, and cisterns are normal in size and configuration for patient age. No hydrocephalus. No midline shift. Negative hyperdense MCA sign. Negative insular ribbon sign. No significant white matter attenuation abnormalities. Normal pituitary. Globes and orbital contents image normally. No extracranial soft tissue abnormalities. The paranasal sinuses, mastoid air cells, and tympanic cavities are normally aerated. No suspicious bony abnormalities. There are no acute fractures evident. CT/CT head/brain wo IV con IMPRESSION: No acute intracranial abnormality. No fracture evident. Electronically signed by: Regan Dsouza MD 02/20/2025 02:49 PM EST
[2025-02-20 13:38] VITALS: BP 167/88; PULSE 78; RESP 16; TEMP 36.7; O2SAT 96; BMI 27.8
--- NOTE | 2025-02-20 13:46 | ED.GENADULT ---
HPI - General Adult General Chief complaint: Fall Stated complaint: dizzy fall back and head pain Time Seen by Provider: 02/20/25 16:25 History of Present Illness ED Provider: Jose Ragland MD HPI narrative: [age] female with nonsyncopal fall isolated left upper thoracic scapular/trapezius pain since the fall. No headache currently denies overt head strike or loss of consciousness around the event. Despite triage note she feels this was more mechanical based on my history taking Related Data Home Medications ?Medication ?Instructions ?Recorded ?Confirmed chlorthalidone 25 mg tablet 0 mg PO 04/18/22 cholecalciferol (vitamin D3) 25 25 mcg PO DAILY 04/18/22 mcg (1,000 unit) capsule (Vitamin D3) diphenhydramine HCl 25 mg tablet 25 mg PO BEDTIME PRN 04/18/22 (Banophen) gabapentin 300 mg capsule 300 mg PO 04/18/22 lisinopril 40 mg tablet 40 mg PO DAILY 04/18/22 loratadine 10 mg tablet 10 mg PO DAILY 04/18/22 omeprazole 20 mg capsule,delayed 20 mg PO DAILY 04/18/22 release rosuvastatin 5 mg tablet 5 mg PO QAM 04/18/22 Allergies Allergy/AdvReac Type Severity Reaction Status Date / Time meperidine (Demerol) Allergy Severe hives face Verified 02/20/25 13:39 swelling, throat closing midazolam (From Versed) Allergy Severe Hives, Verified 02/20/25 13:39 Face swelling, Throat closing bupropion (From Wellbutrin) Allergy Unknown Hives, Verified 02/20/25 13:39 Rash, Itching PMFSH Past Medical History Medical History Polyp of cervix Acute hemorrhoid Acid reflux Allergies High blood pressure Prediabetes High cholesterol Surgical History Tubal ligation status History of neck surgery Previous back surgery Social History Social History Smoked in Last 30 Days: No Use of substances other than those prescribed or required for medical reasons: No Advance Directives: No Advance Directives Information Provided: No Patient : No Current occupational status: retired and disabled 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 Head: Atraumatic Eyes: Anicteric, Normal conjunctiva. ENT: Moist mucosa, no pallor. ? Neck: Supple. Skin: ?No observable rash or bruising on exposed or examined skin Respiratory: Breathing comfortably, No distress.Clear to auscultation bilaterally, symmetric chest expansion, No wheeze, rales, ronchi. Cardiovascular: Regular rate and rhythm. No murmurs or rub. Well perfused periphery, warm extremities. No edema. ? Abdominal: No focal tenderness. Soft, no objective distension. No palpable masses or obvious organomegaly. ?No guarding, no rebound tenderness or other peritoneal findings. : No flank tenderness. Neuro: Alert. Gross movement of all extremities intact. ? Psych: Calm. Cooperative. MSK: No grossly visible deformity. Mild tenderness left superior trapezius no bruising no midline tenderness of the back or step-off Vital signs: See flowsheet Vital Signs: Vital Signs - 24 hr 02/20/25 16:31 02/20/25 16:36 02/20/25 17:22 Temperature 98.3 F 98.3 F 98.3 F Pulse Rate 70 70 70 Respiratory Rate 14 14 14 Blood Pressure 148/85 H 148/85 H 148/85 H Pulse Oximetry 100 100 100 Oxygen Delivery Method Room Air Room Air BMI result Body Mass Index 27.8 Course Course Course Narrative: Rapid medical examination performed in triage by Kathy Dsouza PA-C: Patient is a 65 year old assigned female at presenting to the emergency department with back pain and headache after a fall. Patient states she fell backwards after getting dizzy and hit her head and back. Detailed physical exam and review of systems are deferred to the billing clinician. EKG, labs, imaging ordered. Patient placed back in the waiting room pending room availability and results. Medications Administered Discontinued Medications Generic Name Dose Route Start Last Admin Trade Name Freq PRN Reason Stop Dose Admin Acetaminophen 975 mg 02/20/25 17:12 02/20/25 17:16 Acetaminophen 325 Mg Tablet PO 02/20/25 17:13 975 mg ONCE ONE Administration Ketorolac Tromethamine 15 mg 02/20/25 17:12 02/20/25 17:17 Ketorolac Tromethamine 15 Mg/Ml Vial IM 02/20/25 17:13 15 mg ONCE ONE Administration Lidocaine 1 patch 02/20/25 17:12 02/20/25 17:16 Lidocaine 4 % Patch Adh..Patch TRANSDERMA 02/20/25 17:13 1 patch ONCE ONE Administration Protocol Medical Decision Making Medical Decision Making MDM Narrative: Medical Decision Making: A 65 female with described nonsyncopal fall injuries and pain to the left upper back. Head and cervical spine imaging reassuring ordered prior to my evaluation. Neuro intact multimodal analgesia in the ER with relief Preliminary Favored Differential Diagnosis: Back contusion, trapezius strain, less likely head or neck injury among additional considered etiologies Testing Interpreted Independently: ?See below for details Radiology or Lab testing Results Reviewed: ?See below for details Consults: ?See below for details Independent Historians/External Chart Reviews: ?See below for details Social Determinants of Health Impacting MDM/Planning: ?See below for details Lab Data 02/20/25 14:06 02/20/25 14:06 Labs: Lab Results 02/20/25 02/20/25 Range/Units 14:06 16:32 WBC 6.4 (4.8-10.8) X10*3/uL RBC 4.65 (4.20-5.50) X10*6/uL Hgb 13.5 (12.0-16.0) g/dl Hct 40.6 (37.0-47.0) % MCV 87.3 (80.0-98.0) fL MCH 29.0 (27.0-33.0) pg MCHC 33.3 (31.0-35.0) g/dl RDW 14.0 (11.0-16.0) % Plt Count 307 (160-400) X10*3/uL MPV 10.1 (9.4-12.3) fL Immature Gran % (Auto) 0.2 (0.0-0.4) % Neut % (Auto) 56.4 (45-73) % Lymph % (Auto) 30.5 (20-40) % [facility] % (Auto) 10.2 (2-11) % Eos % (Auto) 1.9 (0-4) % Baso % (Auto) 0.8 (0-2) % Lymph # (Auto) 1.9 (1.2-4.9) X10*3/uL [facility] # (Auto) 0.7 (0.1-1.2) X10*3/uL Eos # (Auto) 0.1 (0.0-0.4) X10*3/uL Baso # (Auto) 0.1 (0.0-0.2) X10*3/uL Abs Immat Gran (auto) 0.01 (0.00-0.03) X10*3/uL Absolute Neuts (auto) 3.6 (2.0-8.3) x10*3/uL Absolute Nucleated RBC 0.000 (0.0-0.012) X10*3/uL Nucleated RBC % (auto) 0.0 (0.0-0.2) /100WBC Sodium 144 (135-145) mmol/L Potassium 3.6 (3.3-5.1) mmol/L Chloride 110 H (96-108) mmol/L Carbon Dioxide 25 (22-29) mmol/L Anion Gap 13 (12-20) BUN 23 H (9-16) mg/dL Creatinine 0.86 (0.5-1.4) mg/dL Estim Creat Clear Calc 69.7 Estimated GFR > 60 Random Glucose 102 (60-115) mg/dL Calcium 9.4 (8.4-10.2) mg/dL Magnesium 2.1 (1.6-2.6) mg/dL Total Bilirubin 0.4 (0.0-1.0) mg/dL AST 30 (5-31) U/L ALT 26 (0-31) U/L Alkaline Phosphatase 53 (39-117) U/L Troponin I High Sens 17.1 H (<3.5-17.0) ng/L Total Protein 7.5 (6.5-8.0) g/dL Albumin 4.6 (3.5-5.0) g/dL Urine Color Yellow Urine Appearance Clear Urine pH 6.0 (5.0-9.0) Ur Specific [place] 1.025 (1.005-1.025) Urine Protein Negative (Neg-Trace) mg/dL Urine Glucose (UA) Negative (Negative) mg/dL Urine Ketones Negative (Negative) mg/dL Urine Blood Negative (Negative) Urine Nitrite Negative (Negative) Ur Leukocyte Esterase Negative (Negative) Discharge Plan Discharge Clinical Impression: Syncope Patient Disposition: Home, Self-Care Instructions: Syncope (ED) Prescriptions: No Action lisinopril 40 mg tablet 40 mg PO DAILY gabapentin 300 mg capsule 300 mg PO cholecalciferol (vitamin D3) [Vitamin D3] 25 mcg (1,000 unit) capsule 25 mcg PO DAILY loratadine 10 mg tablet 10 mg PO DAILY omeprazole 20 mg capsule,delayed release(DR/EC) 20 mg PO DAILY diphenhydramine HCl [Banophen] 25 mg tablet 25 mg PO BEDTIME PRN rosuvastatin 5 mg tablet 5 mg PO QAM chlorthalidone 25 mg tablet 0 mg PO Interventions: ED Discharge Assessment Last Done: 02/20/25 17:22 Discharge Date/Time: 02/20/25 18:32 Print Language: Sami
--- NOTE | 2025-02-20 13:48 | ECG_ITS ---
Test Reason : weakness Blood Pressure : */* mmHG Vent. Rate : 69 BPM Atrial Rate : 69 BPM P-R Int : 130 ms QRS Dur : 90 ms QT Int : 406 ms P-R-T Axes : 44 -1 14 degrees QTcB Int : 435 ms Normal sinus rhythm Minimal voltage criteria for LVH, may be normal variant ( R in aVL ) Borderline ECG When compared with ECG of 21-Sep-2012 19:09, No significant change was found Referred By: Kathy Dsouza Electronically Signed By: SEMAJ DELATORRE
[2025-02-20 14:10] LABS: MANUAL DIFF FLAG NO
[2025-02-20 14:11] LABS: Hematocrit 40.6 % (37.0-47.0); Hemoglobin 13.5 g/dl (12.0-16.0); Imm Gran Abs Auto 0.01 X10*3/uL (0.00-0.03); Imm Gran Pct Auto 0.2 % (0.0-0.4); Lymphocytes Absolute Auto 1.9 X10*3/uL (1.2-4.9); Mean Corpuscular HGB Conc 33.3 g/dl (31.0-35.0); Mean Corpuscular Hemoglobin 29.0 pg (27.0-33.0); Mean Corpuscular Volume 87.3 fL (80.0-98.0); NRBC Abs Auto 0.000 X10*3/uL (0.0-0.012); NRBC Pct Auto 0.0 /100WBC (0.0-0.2); Platelet Count 307 X10*3/uL (160-400); Red Blood Count 4.65 X10*6/uL (4.20-5.50); White Blood Count 6.4 X10*3/uL (4.8-10.8)
[2025-02-20 14:28] LABS: Alanine Aminotransferase 26 U/L (0-31); Albumin Level 4.6 g/dL (3.5-5.0); Alkaline Phosphatase 53 U/L (39-117); Anion Gap 13 (12-20); Aspartate Amino Transferase 30 U/L (5-31); Blood Urea Nitrogen 23 mg/dL (9-16); Calcium 9.4 mg/dL (8.4-10.2); Carbon Dioxide 25 mmol/L (22-29); Chloride 110 mmol/L (96-108); Creatinine Clr Calc Pharmacy 69.7; Estimated Glomerular Filt Rate > 60; Magnesium 2.1 mg/dL (1.6-2.6); Potassium 3.6 mmol/L (3.3-5.1); Sodium 144 mmol/L (135-145); Total Protein 7.5 g/dL (6.5-8.0)
[2025-02-20 14:35] LABS: Troponin-I High Sensitivity 17.1 ng/L (<3.5-17.0)
--- OUTSIDE RECORDS SUMMARY | 2025-02-20 16:16 | XMS_ITS | Patient Health Record ---
Author Organization [facility] Address [address] [place] [address] Care Team Providers Care Blocker And Polisher Gold Wheel Name Role Phone Kevin Early Unavailable [phone] Reason For Referral No Information Plan Of Treatment No Information
--- OUTSIDE RECORDS SUMMARY | 2025-02-20 16:16 | XMS_ITS | Encounter Summary ---
Author Organization [employer] Address [address] [facility] [address] [place] [address] Care Team Providers Care Data Center Consultant Name Role Phone Lyly Cam MD Primary Care Provider [phone] Marcell Dutta PharmD Unavailable [phone] Reason for Visit * Reason Comments Med Refill Encounter Details Date Type Department Care Team ([facility] st Contact Info) Description 01/30/2023 Refill [facility] [address] [place], [place] [phone] Lyly Cam MD [address] [place], [place] [phone] Dyslipidemia Social History Tobacco Use Types Packs/Day [...] documented as of this encounter Care Teams Data Center Consultant Relationship Specialty Start Date End Date Lyly Cam MD [address] [place] [address] PCP - General Family Medicine 03/07/12 Marcell Dutta, DenizD [address] [place] [phone] Pharmacist Internal Medicine 04/04/22 12/17/24 documented as of this encounter
--- OUTSIDE RECORDS SUMMARY | 2025-02-20 16:16 | XMS_ITS | Encounter Summary ---
Author Organization [employer] Address [address] [facility] [address] [place] [address] Care Team Providers Care Automotive Fuel Systems Converter Name Role Phone Lyly Cam MD Primary Care Provider [phone] Reason for Visit * Reason Comments Med Refill Encounter Details Date Type Department Care Team ([facility] st Contact Info) Description 02/20/2025 Refill [facility] [address] [place], [place] [phone] Lyly Cam MD [address] [place], [place] [phone] Social History Tobacco Use Types Packs/Day Years [...] documented as of this encounter Care Teams Automotive Fuel Systems Converter Relationship Specialty Start Date End Date Lyly Cam MD [address] [place] [id number] PCP - General Family Medicine 03/07/12 documented as of this encounter
--- OUTSIDE RECORDS SUMMARY | 2025-02-20 16:16 | XMS_ITS | Clinical Summary ---
Author Organization [employer] Address [address] [facility] [address] [place] [address] Care Team Providers Care Lead [employer] Developer Name Role Phone Lyly Cam MD Primary Care Provider [phone] Allergies Active Allergy Reactions Criticality Noted Date [...] Plan (08/17/2024 7:21 PM EDT): -Followed by [facility] providers and [facility] neurosurgeon. -Last seen by neurosurgeon in August [...] Plan (01/16/2024 1:43 PM EDT): -Followed by [facility] providers and [facility] neurosurgeon. -Last seen by neurosurgeon in August [...] Plan (10/10/2023 5:45 AM EDT): -Followed by [facility] providers and [facility] neurosurgeon. -Last seen by neurosurgeon in August [...] Plan (06/07/2023 6:20 AM EDT): -Followed by [facility] providers and neurosurgeon. -Last [...] Plan (03/18/2023 11:23 AM EST): -Followed by [facility] providers and neurosurgeon. -Last seen by neurosurgeon in JanFeb 2019 -Last seen by PSS provider in May 2019 -s/p ACDF C5-C7 on 07/01/[address] Horn -Continue gabapentin 300 mg bid - Add lidocaine patch - refer back to neurosurgery Assessment & Plan (12/01/2022 6:04 AM EDT): -Followed by [facility] providers and neurosurgeon. -Last seen by neurosurgeon in JanFeb 2019 -Last seen by PSS provider in May 2019 -s/p ACDF C5-C7 on 07/01/[address] Horn -Tapered down Gabapentin, now maintained at 300 mg bid -Re-evaluate with CT due to worsening pain Assessment & Plan (03/20/2022 10:36 AM EST): -Followed by [facility] providers and neurosurgeon. -Last [...] are normal. -Co-managed with our pharmacist through [facility] -Continue checking home BP -Completed 24 hour [...] A1C > 5.9%, the highest 6.1% in 2608-8609 -12/15/21 6.0% -11/28/22 5.8% -10/10/23 6.3% - 10/11/23 5.9% -Family Hx DM (mother and daughter) -Continue working on lifestyle modification -Continue screening q6-12 mo Assessment & Plan (08/11/2024 1:39 PM EDT): -Since 2019 A1C > 5.9%, the highest 6.1% in 3487-0267 -12/15/21 6.0% -11/28/22 5.8% -10/10/23 6.3% - 10/11/23 5.9% -Family Hx DM (mother and daughter) -Continue working on lifestyle modification -Continue screening q6-12 mo Assessment & Plan (01/16/2024 1:41 PM EDT): -Since 2019 A1C > 5.9%, the highest 6.1% in 3968-9699 -12/15/21 6.0% -11/28/22 5.8% -10/10/23 6.3% -Family Hx DM (mother and daughter) -Continue working on lifestyle modification -Continue screening q6-12 mo Assessment & Plan (10/09/2023 9:45 PM EDT): -Since 2019 A1C > 5.9%, the highest 6.1% in 5912-9199 -12/15/21 6.0% -11/28/22 5.8% -Family Hx DM (mother and daughter) -Continue working on lifestyle modification -Continue screening q6-12 mo Assessment & Plan (06/23/2023 6:33 AM EDT): -Since 2019 A1C > 5.9%, the highest 6.1% in 7216-3924 -12/15/21 6.0% -11/28/22 5.8% -Family Hx DM [...] 5.9%, the highest 6.1% in -12/15/21 6.0% -Family Hx DM (mother and daughter) -Continue working on lifestyle modification -Continue screening q6-12 mo Insomnia 08/23/2012 Assessment & Plan (03/21/2022 3:59 PM EST): -Stress reduction -Practice healthy sleep hygiene Encounters Date Type Department Care Team Description 02/20/2025 Orders Only GENERIC EXTERNAL DATA DEPARTMENT Provider, Generic External Data 02/20/[address] [address] Lyly Cam MD 02/17/2025 11:15 AM EST Office Visit [address] [address] Lyly Cam MD Hypertension, unspecified type (Primary [...] stenosis; Malodorous urine 02/17/2025 Travel 02/16/[address] [address] Lyly Cam MD chartprep 12/17/2024 2:00 PM EDT Telemedicine [facility] [address] [place] [address] aMrcell Dutta, Juan José Hypertension, unspecified type (Primary Dx) 12/15/2024 Refill [facility] [address] [place] [address] Lyly Cam MD Dyslipidemia; Nasal congestion 12/15/2024 Refill [facility] [address] [place] [address] Nakia Ponce MD 12/15/2024 Refill [facility] [address] [place] [address] Denae Decker ANP Nasal congestion 12/14/2024 Refill [facility] [address] [place] [address] Lyly Cam MD 11/24/2024 Refill [facility] [address] [place] [address] Lyly Cam MD from Last 3 Months Immunizations Immunization Administration [...] Procedure Name Priority Date/Time Associated Diagnosis Comments CT CERVICAL SPINE WO CONTRAST Routine 02/20/2025 2:[address] HEAD WO CONTRAST Routine 02/20/2025 2 :21 PM EST HIGH SENSITIVITY TROPONIN I Routine 02/20/2025 2:06 PM EST MAGNESIUM Routine 02/20/2025 2:06 PM EST COMPREHENSIVE METABOLIC PANEL Routine 02/20/2025 2:06 PM EST CBC WITH AUTO DIFFERENTIAL Routine 02/20/2025 2:06 PM EST URINALYSIS, COMPLETE, WITH REFLEX TO CULTURE Routine [...] Recently Relevant to Health Maintenance Results * CT Cervical Spine w/o Contrast (02/20/2025 2:21 PM EST) Anatomical Region Laterality Modality Spine, C-spine Computed Tomogra phy 02/20/2025 2:21 PM EST Narrative 02/20/2025 3:14 PM EST [address] [address] [address] Scan Report Signed Patient: Ebony Morton MR#: M [id number] : 1960 Acct:[id number] Age/Sex: 65 / F ADM Date: 02/20/25 Loc: HO.ED Attending Dr: Ordering Physician: Kathy Dsouza Date of Service: 02/20/25 Procedure(s): CT cervical spine wo IV con Accession Number(s): [id number] cc: Kathy Dsouza; Lyly Cam MD Report Number: [id number]: Total DLP = 868.00 mGy-cm Reason for Exam: fall, head strike EXAMINATION: CT CERVICAL SPINE WITHOUT CONTRAST CLINICAL INFORMATION: Fall, head strike COMPARISON: CT 01/15/2023, CT 01/15/2023 TECHNIQUE: Axial imaging. Sagittal and coronal reconstructions. This CT examination was performed using dose optimization techniques as appropriate, variously including the following: *Automated exposure control *Adjustment of mA and/or kV according to patient size (this includes techniques or standardized protocols for targeted exams where dose is matched to indication/reason for exam; i.e. extremities or head) *Use of iterative reconstruction technique FINDINGS: Straightening of the cervical curvature. Predens space is maintained. Small chronic ossification inferior to the dens, unchanged from previous. Redemonstrated are postsurgical changes from C5-C7 ACDF with solid interbody arthrodesis at these levels. Postsurgical changes from anterior spinal fusion at C4-5. Anterior fusion hardware at C4-5, with intact hardware. No visible acute fracture or acute subluxation. Vertebral body alignment is maintained. Multilevel mild disc and facet degeneration. No significant osseous bony canal narrowing. No prevertebral soft tissue swelling. Esophagus is nondistended. Trachea is patent. Stable 4 mm right thyroid nodule, below size criteria for imaging follow-up. 3 mm nodule right upper lung, stable. CT/CT cervical spine wo IV con IMPRESSION: * Postsurgical changes from anterior spinal fusion at C5-7, and C4-5. Hardware is intact. * No CT evidence of acute fracture or traumatic malalignment. * Additional findings and details as above. Fleischner guidelines were followed. Electronically signed by: Eliecer Brown MD 02/20/2025 03:11 PM [facility] Dictated By: Eliecer Brown MD Signed By: <Electronically signed by Eliecer Brown MD in OV> 02/20/25 1511 DD/ 1421 TD/TT: 02/20/25 1433 Blast Furnace Blower: ZAIN Procedure Note Donotuseinterpreter, Image - 02/20/[address] [address] [address] Scan Report Signed Patient: Ebony Morton RMR#: M [id number] : 1960cct:[id number] Age/Sex: 65 / FADM Date: 02/20/25 Loc: HO.ED Attending Dr: Ordering Physician: Kathy Dsouza Date of Service: 02/20/25 Procedure(s): CT cervical spine wo IV con Accession Number(s): [id number] cc: Kathy Dsouza; Lyly Cam MD Report Number: [id number]: Total DLP = 868.00 mGy-cm Reason for Exam: fall, head strike EXAMINATION: CT CERVICAL SPINE WITHOUT CONTRAST CLINICAL INFORMATION: Fall, head strike COMPARISON: CT 01/15/2023, CT 01/15/2023 TECHNIQUE: Axial imaging. Sagittal and coronal reconstructions. This CT examination was performed using dose optimization techniques as appropriate, variously including the following: *Automated exposure control *Adjustment of mA and/or kV according to patient size (this includes techniques or standardized protocols for targeted exams where dose is matched to indication/reason for exam; i.e. extremities or head) *Use of iterative reconstruction technique FINDINGS: Straightening of the cervical curvature. Predens space is maintained. Small chronic ossification inferior to the dens, unchanged from previous. Redemonstrated are postsurgical changes from C5-C7 ACDF with solid interbody arthrodesis at these levels. Postsurgical changes from anterior spinal fusion at C4-5. Anterior fusion hardware at C4-5, with intact hardware. No visible acute fracture or acute subluxation. Vertebral body alignment is maintained. Multilevel mild disc and facet degeneration. No significant osseous bony canal narrowing. No prevertebral soft tissue swelling. Esophagus is nondistended. Trachea is patent. Stable 4 mm right thyroid nodule, below size criteria for imaging follow-up. 3 mm nodule right upper lung, stable. CT/CT cervical spine wo IV con IMPRESSION: * Postsurgical changes from anterior spinal fusion at C5-7, and C4-5. Hardware is intact. * No CT evidence of acute fracture or traumatic malalignment. * Additional findings and details as above. Fleischner guidelines were followed. Electronically signed by: Eliecer Brown MD 02/20/2025 03:11 PM EST Dictated By: Eliecer Brown MD Signed By: <Electronically signed by Eliecer Brown MD in OV> 02/20/25 1511 DD/ 1421 TD/TT: 02/20/25 1433 Blast Furnace Blower: ZAIN [facility] External Provider IMG CT PROCEDURES Final Result * CT Head w/o Contrast (02/20/2025 2:21 PM EST) Anatomical Region Laterality Modality Head, Neck Computed Tomogra phy 02/20/2025 2:21 PM EST Narrative 02/20/2025 2:52 PM EST [address] [address] [address] Scan Report Signed Patient: Ebony Morton MR#: M [id number] : 1960 Acct:[id number] Age/Sex: 65 / F ADM Date: 02/20/25 Loc: HO.ED Attending Dr: Ordering Physician: Kathy Dsouza Date of Service: 02/20/25 Procedure(s): CT head/brain wo IV con Accession Number(s): [id number] cc: Kathy Dsouza; Lyly Cam MD Report Number: [id number]: Total DLP = 0.00 mGy-cm Reason for Exam: fall, head strike EXAMINATION: CT HEAD WITHOUT CONTRAST CLINICAL INFORMATION: Fall, head strike COMPARISON: No prior. TECHNIQUE: Contiguous axial imaging was performed from the skull base to vertex without intravenous administration of contrast. This CT examination was performed using dose optimization techniques as appropriate, variously including the following: *Automated exposure control *Adjustment of mA and/or kV according to patient size (this includes techniques or standardized protocols for targeted exams where dose is matched to indication/reason for exam; i.e. extremities or head) *Use of iterative reconstruction technique FINDINGS: There is no evidence of intracranial hemorrhage or extra-axial fluid collection. There is no mass effect, or edema. No CT evidence of acute territorial infarct. Ventricles, sulci, and cisterns are normal in size and configuration for patient age. No hydrocephalus. No midline shift. Negative hyperdense MCA sign. Negative insular ribbon sign. No significant white matter attenuation abnormalities. Normal pituitary. Globes and orbital contents image normally. No extracranial soft tissue abnormalities. The paranasal sinuses, mastoid air cells, and tympanic cavities are normally aerated. No suspicious bony abnormalities. There are no acute fractures evident. CT/CT head/brain wo IV con IMPRESSION: No acute intracranial abnormality. No fracture evident. Electronically signed by: Regan Dsouza MD 02/20/2025 02:49 PM [facility] Dictated By: Regan Dsouza MD Signed By: <Electronically signed by Regan Dsouza MD in OV> 02/20/25 1449 DD/ 1421 TD/TT: 02/20/25 1433 Blast Furnace Blower: Procedure Note Donotuseinterpreter, Image - 02/20/[address] [place] [address] [address] Scan Report Signed Patient: Ebony Morton RMR#: M [id number] : 1960cct:[id number] Age/Sex: 65 / FADM Date: 02/20/25 Loc: .ED Attending Dr: Ordering Physician: Kathy Dsouza Date of Service: 02/20/25 Procedure(s): CT head/brain wo IV con Accession Number(s): [id number] cc: Kathy Dsouza; Lyly Cam MD Report Number: [id number]: Total DLP = 0.00 mGy-cm Reason for Exam: fall, head strike EXAMINATION: CT HEAD WITHOUT CONTRAST CLINICAL INFORMATION: Fall, head strike COMPARISON: No prior. TECHNIQUE: Contiguous axial imaging was performed from the skull base to vertex without intravenous administration of contrast. This CT examination was performed using dose optimization techniques as appropriate, variously including the following: *Automated exposure control *Adjustment of mA and/or kV according to patient size (this includes techniques or standardized protocols for targeted exams where dose is matched to indication/reason for exam; i.e. extremities or head) *Use of iterative reconstruction technique FINDINGS: There is no evidence of intracranial hemorrhage or extra-axial fluid collection. There is no mass effect, or edema. No CT evidence of acute territorial infarct. Ventricles, sulci, and cisterns are normal in size and configuration for patient age. No hydrocephalus. No midline shift. Negative hyperdense MCA sign. Negative insular ribbon sign. No significant white matter attenuation abnormalities. Normal pituitary. Globes and orbital contents image normally. No extracranial soft tissue abnormalities. The paranasal sinuses, mastoid air cells, and tympanic cavities are normally aerated. No suspicious bony abnormalities. There are no acute fractures evident. CT/CT head/brain wo IV con IMPRESSION: No acute intracranial abnormality. No fracture evident. Electronically signed by: Regan Dsouza MD 02/20/2025 02:49 PM EST Dictated By: Regan Dsouza MD Signed By: <Electronically signed by Regan Dsouza MD in OV> 02/20/25 1449 DD/ 1421 TD/TT: 02/20/25 1433 Bl[employer] Furnace Blower: [facility] External Provider IMG CT PROCEDURES Final Result * (ABNORMAL) High Sensitivity Troponin I (02/20/2025 2:06 PM EST) [facility] TROPONIN I HIGH SENSITIVITY 17.1(H) <3.5 - 17.0 ng/L [facility] Comment:The Lassiter high sens itivity Troponin-I results should beused in conjunction with other diagnostic information suchas ECG, clinical observations and information, and patientsymptoms to aid in the diagnosis of VA. 02/20/2025 2:06 PM EST 02/20/2025 2:09 PM EST Generic External Data Provider LAB BLOOD ORDERAB LES Final Result [facility] [address] [place] [phone] * CBC auto differential (02/20/2025 2:06 PM EST) White Blood Count 6.4 4.8 - 10.8 X10*3/uL [facility] Red Blood Count 4.65 4.20 - 5.50 X10*6/uL [facility] Hemoglobin 13.5 12.0 - 16.0 g/dl [facility] Hematocrit 40.6 37.0 - 47.0 % [facility] Mean Corpuscular Volume 87.3 80.0 - 98.0 fL [facility] Mean Corpuscular Hemoglobin 29.0 27.0 - 33.0 pg [facility] Mean Corpuscular HGB Conc 33.3 31.0 - 35.0 g/dl [facility] Red Cell Distribution Width 14.0 11.0 - 16.0 % [facility] Platelet Count 307 160 - 400 X10*3/uL [facility] Mean Platelet Volume 10.1 9.4 - 12.3 fL [facility] Neutrophils Percent Auto 56.4 45 - 73 % [facility] Imm Gran Pct Auto 0.2 0.0 - 0.4 % [facility] Lymphocytes Percent Auto 30.5 20 - 40 % [facility] Monocytes Percent Auto 10.2 2 - 11 % [facility] Eosinophils Percent Auto 1.9 0 - 4 % [facility] Basophils Percent Auto 0.8 0 - 2 % [facility] NRBC Pct Auto 0.0 0.0 - 0.2 /100WBC [facility] Neutrophils Absolute Auto 3.6 2.0 - 8.3 x10*3/uL [facility] Imm Gran Abs Auto 0.01 0.00 - 0.03 X10*3/uL [facility] Lymphocytes Absolute Auto 1.9 1.2 - 4.9 X10*3/uL [facility] Monocytes Absolute Auto 0.7 0.1 - 1.2 X10*3/uL [facility] Eosinophils Absolute Auto 0.1 0.0 - 0.4 X10*3/uL [facility] Basophils Absolute Auto 0.1 0.0 - 0.2 X10*3/uL [facility] NRBC Abs Auto 0.000 0.0 - 0.012 X10*3/uL [facility] 02/20/2025 2:06 PM EST 02/20/2025 2:09 PM EST us Generic External Data Provider LAB BLOOD ORDERAB LES Final Result Performing Organization Address [facility]/ZIP Co de Phone Number [facility] [address] [place] [phone] * Magnesium (02/20/2025 2:06 PM EST) Pathologist [facility] Magnesium 2.1 1.6 - 2.6 mg/dL [facility] 02/20/2025 2:06 PM EST 02/20/2025 2:09 PM EST Generic External Data Provider LAB BLOOD ORDERAB LES Final Result Performing Organization Address [facility] Co de Phone Number [facility] [address] [place] [phone] * (ABNORMAL) Comprehensive Metabolic Panel (02/20/2025 2:06 PM EST) [facility] Sodium 144 135 - 145 mmol/L [facility] Potassium 3.6 3.3 - 5.1 mmol/L [facility] Chloride 110(H) 96 - 108 mmol/L [facility] Carbon Dioxide 25 22 - 29 mmol/L [facility] Anion Gap 13 12 - 20 [facility] Urea Nitrogen (BUN) 23(H) 9 - 16 mg/dL [facility] Creatinine, Serum 0.86 0.5 - 1.4 mg/dL [facility] Creatinine Clr Calc Pharmacy 69.7 [facility] Comment:Provided height and weight: 167.64 cm,78.1 kg.eGFR (calculated from the MDRD study equation) and eCrCl(calculated from the Cockcroft-Gault equation) are based ondifferent parameters and may not yield comparable results.If eCrCl result is absurd, please check patient'sheight/weight. Estimated Glomerular Filt Rate >60 [facility] Comment:Chronic Kidney Disea se: Estimated GFR < 60 mL/min/1.08m1[place] Kidney Disease: Estimated GFR < 15 mL/min/1.73m2 Glucose 102 60 - 115 mg/dL [facility] Calcium 9.4 8.4 - 10.2 mg/dL [facility] Bilirubin, Total 0.4 0.0 - 1.0 mg/dL [facility] Aspartate Amino Transferase 30 5 - 31 U/L [facility] Alanine Aminotransferase 26 0 - 31 U/L [facility] Total Protein 7.5 6.5 - 8.0 g/dL [facility] Albumin Level 4.6 3.5 - 5.0 g/dL [facility] Alkaline Phosphatase 53 39 - 117 U/L [facility] 02/20/2025 2:06 PM EST 02/20/2025 2:09 PM EST us Generic External Data Provider LAB BLOOD ORDERAB LES Final Result [facility] [address] [place] [address] [phone] * (ABNORMAL) Urinalysis, Complete, with Reflex to Culture (02/17/2025 4:19 PM EST) Color Urine Yellow [facility] Appearance Urine Clear [facility] PH 6.0 5.0 - 9.0 [facility] Glucose Urine UA Negative Negative mg/dL [facility] Urine Blood Negative Negative [facility] Specific [place] - Urine 1.025 1.005 - 1.025 [facility] Urine Protein Negative Neg-Trace mg/dL [facility] Urine Ketones Negative Negative mg/dL [facility] Nitrite Urine Negative Negative [facility] Leukocyte Esterase Urine Trace(A) Negative [facility] RBC Urine 0-2 0 - 2 /HPF [facility] Urine WBC 0-5 0 - 5 /HPF [facility] Urine Squamous Epithelial Cell 0-2 0 - 2 /HPF [facility] Urine Bacteria None Seen None Seen [facility] Hyaline Casts, Urine 0-2 0 - 2 /LPF [facility] Urine 02/17/2025 4:19 PM EST 02/17/2025 6:09 PM EST Narrative [facility] - 02/17/2025 7:02 PM EST Urine, Clean Catch Lyly Cam MD LAB URINE ORDERABLES Final Resul t Performing Organization Address [facility] Co de Phone Number [facility] [address], [place] [phone] * (ABNORMAL) Lipid Panel with Reflex to Direct LDL (02/11/2025 10:10 AM EST) Triglycerides 82 <150 mg/dL [facility] Comment:Desirable Triglyceri de: less than 150 mg/dLBorderline High Triglyceride 150-199 mg/dLHigh Triglyceride: 200-499 mg/dLVery High Triglyceride: greater than or equal to 5OO mg/dL Cholesterol 190 <200 mg/dL [facility] Comment:Desirable Cholestero l: less than 200 mg/dLBorderline High Cholesterol: 200-239 mg/dLHigh Cholesterol: greater than 239 mg/dL LDL Cholesterol Calculated 116(H) <100 mg/dL [facility] Comment:Desirable LDL: less than 100 mg/dLNear Optimal/Above Optimal LDL: 110- 129 mg/dLBorderline High LDL: 130-159 mg/dLHigh LDL: 160-189 mg/dLVery High LDL: greater than or equal to 190 mg/dL HDL Cholesterol 58 >40 mg/dL [facility] Comment:Desirable HDL: great er than 40 mg/dL Note: This HDL assay may give artificially low results in patients with liver disease. Blood 02/11/2025 10:1 0 AM EST 02/11/2025 11:01 AM EST Lyly Cam MD LAB BLOOD ORDERABLES Final Resul t Performing Organization Address City/State/[facility] Co de Phone Number [facility] [address] [place] [address] [phone] * Albumin, Random Urine W/Creatinine (02/11/2025 10:10 AM EST) Creatinine, Urine 209.41 mg/dL [facility] Microalbumin Urine 13.0 mg/L [facility] Microalbum Creatinine Ratio Ur 6.2 <30 ug/mg cr [facility] Comment:Albumin/Creatinine R atio Reference Ranges: Normal: < 30 ug/mg creatinine Microalbuminuria: 30 - 300 ug/mg creatinineClinical Albuminuria: > 300 ug/mg creatinine Urine 02/11/2025 10:1 0 AM EST 02/11/2025 11:06 AM EST us Lyly Cam MD LAB URINE ORDERABLES Final Resul t Performing Organization Address [facility] Co de Phone Number [facility] [address] [place] [address] [phone] * (ABNORMAL) Hemoglobin A1c (02/11/2025 10:10 AM EST) Hemoglobin A1c 6.4(H) <6.0 % [facility] Comment:Hemoglobin A1C Refer ence Range Adults: 4.8 - 6.0 % Non diabetic: < 6.0 % Goal: < 7.0 %Additional Action Suggested: > 8.0 %Note: Hemoglobin A1c results are invalid for patients with abnormal amounts of HbF. Blood transfusions may impact the HbA1c concentration in the patient sample. Estimated Average Glucose 137 mg/dL [facility] Comment:eAG = Estimated ave rage glucose which is %A1C expressed asaverage glucose, using the formula of the U4T-EpkdnufIdwzyat Glucose study (ADAG), Diabetes Care, Vol.31,#8,Oct. 2007 Blood Venous blood specimen / Unknown 02/11/2025 10:10 AM EST 02/11/2025 11:01 AM EST us Lyly Cam MD LAB BLOOD ORDERABLES Final Resul t Performing Organization Address [facility] de Phone Number [facility] [address] [place] [address] [phone] * Hepatic Function Panel (02/11/2025 10:10 AM EST) Pathologist [facility] Bilirubin, Total 0.6 0.0 - 1.0 mg/dL [facility] Bilirubin, Direct 0.2 0.0 - 0.5 mg/dL [facility] Aspartate Amino Transferase 27 5 - 31 U/L [facility] Alanine Aminotransferase 20 0 - 31 U/L [facility] Total Protein 7.6 6.5 - 8.0 g/dL [facility] Albumin Level 4.5 3.5 - 5.0 g/dL [facility] Alkaline Phosphatase 55 39 - 117 U/L [facility] Blood Venous blood specimen / Unknown 02/11/2025 10:10 AM EST 02/11/2025 11:01 AM EST Lyly Cam MD LAB BLOOD ORDERABLES Final Resul t Performing Organization Address [facility] de Phone Number [facility] [address] [place] [phone] * (ABNORMAL) Basic Metabolic Panel (02/11/2025 10:10 AM EST) Pathologist [facility] Sodium 141 135 - 145 mmol/L [facility] Potassium 3.6 3.3 - 5.1 mmol/L [facility] Chloride 104 96 - 108 mmol/L [facility] Carbon Dioxide 29 22 - 29 mmol/L [facility] Anion Gap 12 12 - 20 [facility] Urea Nitrogen (BUN) 20(H) 9 - 16 mg/dL [facility] Creatinine, Serum 0.87 0.5 - 1.4 mg/dL [facility] Estimated Glomerular Filt Rate >60 [facility] Comment:Chronic Kidney Disea se: Estimated GFR < 60 mL/min/1.18f4Slivyt Kidney Disease: Estimated GFR < 15 mL/min/1.73m2 Glucose 94 60 - 115 mg/dL [facility] Calcium 9.8 8.4 - 10.2 mg/dL [facility] Blood Venous blood specimen / Unknown 02/11/2025 10:10 AM EST 02/11/2025 11:01 AM EST Lyly Cam MD LAB BLOOD ORDERABLES Final Resul t [facility] [address] [place] [address] [phone] * BI Mammogram Screening Tomosynthesis Bilateral (10/15/2024 3:08 PM EDT) Anatomical Region Laterality Modality Breast Bilateral Mammography 10/15/2024 3:08 PM EDT Narrative 10/21/2024 7:50 PM EDT [facility] [address] [place] [address] Mammography Report Signed Patient: Ebony Landaverde MR#: [id number] : 1960 Acct:[id number] Age/Sex: 64 / F ADM Date: 10/15/24 Loc: .MAMMO Attending Dr: Lyly Cam MD Ordering Physician: Lyly Cam MD Results: 1Negative Date of Service: 10/15/24 Follow Up: 1 Year From [facility] Mammogram Procedure(s): MM tomosynthesis screening BI Accession Number(s): [id number] cc: Lyly Cam MD EXAMINATION: MM SCREENING [...] Kim MD 10/21/2024 07:46 PM EDT RP Workstation: trueEX Dictated By: Alexa Kim MD Signed By: <Electronically signed by Alexa Kim MD in OV> 10/21/241945 DD/ 1508 TD/TT: 10/15/24 1528 Blast Furnace Blower: Procedure Note Donotuseinterpreter, Image - 10/21/2024 [facility] [address] [place] [address] Mammography Report Signed Patient: Ebony Landaverde RMR#: [id number] : 1960cct:[id number] Age/Sex: 64 / FADM Date: 10/15/24 Loc: EVELIO Attending Dr: Lyly Cam MD Ordering Physician: Lyly Cam MDResults: 1Negative Date of Service: 10/15/24Follow Up: 1 Year From [facility] Mammogram Procedure(s): MM tomosynthesis screening BI Accession Number(s): [id number] cc: Lyly Cam MD EXAMINATION: MM SCREENING [...] 10/21/24 1946 DD/ 1508 TD/TT: 10/15/24 1528 Blast Furnace Blower: Lyly Cam MD IMG BI PROCEDURES Final Result * THINPREP TIS PAP AND HPV mRNA E6/E7 REFLEX HPV 16,18/45 (01/19/2021 4:11 PM EDT) Clinical Information: None given [facility] COMMENT SEE COMMENT FOUNDATI ON [...] has been evaluated with computer assisted technology. [facility] Mulcher Operator: SEE COMMENT [facility] Comment: SL, CT(ASCP) CT screening location: [place] [address] HPV nRNA E6/E7 Not Detected Not Detected [facility] Comment: Methodology: Spinning Bath Person-Mediated Amplification This assay detects E6/E7 viral messenger RNA (mRNA) from 14 high-risk HPV types (16,18,31,33,35,39,45,51,52,56,58,59,66,68). The analytical performance characteristics of this assay have been determined by [employer]. The modifications have not been cleared or approved by the FDA. This assay has been validated pursuant to the CLIA regulations and is used for clinical purposes. For additional information, please refer to http://education.[employer]/faq/CFR294z1 (This link if provided for information/ educational [...] SYSTEM Statement Of Adequacy: SATISFACTORY FOR EVALUATION [facility] 01/19/2021 4:11 PM EDT Lyly Cam MD LAB PATHOLOGY ORDERABLES Final R esult Performing Organization Address City/State/[facility] Co de Phone Number [facility] [address] * Hepatitis C Antibody (01/29/2018) Hepatitis C Antibody Nonreactive Blood 01/29/2018 Historical Provider HEALTH MAINTENANCE Final Result * HIV 1/2 Antigen and Antibody (01/29/2018) HIV Ag/Ab Nonreactive 01/29/2018 Historical Provider HEALTH MAINTENANCE Final Result * Colonoscopy (09/14/2016) Colonoscopy Normal Normal 09/14/2016 Lindsay [place] [facility] MAINTENANCE Edited Result - Final from Last 3 Months or Most Recently Relevant to Health Maintenance Insurance [facility] C3 Advance Directives Documents on File Type Date Recorded Patient Automatic Glove Turner And Former Expl anation Power of Materials Planning Manager 08/17/2023 Power Of A ttorney 08/17/23 Care Teams Lead Informatica Developer Relationship Specialty Start Date End Date Lyly Cam MD [address] [place] [address] PCP - General Family Medicine 03/07/12
--- OUTSIDE RECORDS SUMMARY | 2025-02-20 16:16 | XMS_ITS | Encounter Summary ---
Author Organization [employer] Address [address] [facility] 7t [place] [address] Care Team Providers Care Packager Name Role Phone Lyly Cam MD Primary Care Provider [phone] Reason for Visit * Reason Onset Date Comments chartprep 02/16/2025 Encounter Details Date Type Department Care Team ([facility] st Contact Info) Description 02/16/2025 Telephone [facility] MEDICINE [address] [place] [address] Lyly Cam MD [address] [place], [place] [phone] chartprep Social History Tobacco Use Types Packs/Day [...] documented as of this encounter Care Teams Packager Relationship Specialty Start Date End Date Lyly Cam MD [address] [place] [address] PCP - General Family Medicine 03/07/12 documented as of this encounter
--- OUTSIDE RECORDS SUMMARY | 2025-02-20 16:16 | XMS_ITS | Encounter Summary ---
Author Organization [employer] Address [address] [facility] 7t [place] [address] Care Team Providers Care Psych Rn Name Role Phone Lyly Cam MD Primary Care Provider [phone] Marcell Dutta PharmD Unavailable [phone] Reason for Visit * Reason Comments Med Refill Encounter Details Date Type Department Care Team ([facility] st Contact Info) Description 10/16/2024 Refill [facility] MEDICINE [address] [place], [place] [phone] Lyly Cam MD [address] [place], [place] [phone] Dyslipidemia Social History Tobacco Use Types Packs/Day [...] documented as of this encounter Care Teams Psych Rn Relationship Specialty Start Date End Date Lyly Cam MD [address] [place] [address] PCP - General Family Medicine 03/07/12 Marcell Dutta, DenizD [address] [place] [address] Pharmacist Internal Medicine 04/04/22 12/17/24 documented as of this encounter
--- OUTSIDE RECORDS SUMMARY | 2025-02-20 16:16 | XMS_ITS | Encounter Summary ---
Author Organization [employer] Address 75 [facility] 7t h Floor [place] [phone] Care Team Providers Care Wire Coater Name Role Phone Lyly Cam MD Primary Care Provider [phone] Marcell Dutta PharmD Unavailable [phone] Reason for Visit * Reason Comments Med Refill Encounter Details Date Type Department Care Team ([facility] st Contact Info) Description 11/20/[address] [facility] [address] [place], [place] [phone] Lyly Cam MD [address] [place], [place] [phone] Dyslipidemia Social History Tobacco Use Types Packs/Day [...] documented as of this encounter Care Teams Wire Coater Relationship Specialty Start Date End Date Lyly Cam MD [address] [place], [place] [phone] PCP - General Family Medicine 03/07/12 Marcell Dutta, DenizD [address] [place], [place] [address]Est[place] [address] Pharmacist Internal Medicine 04/04/22 12/17/24 documented as of this encounter
--- OUTSIDE RECORDS SUMMARY | 2025-02-20 16:16 | XMS_ITS | Encounter Summary ---
Author Organization [employer] Address 75 [facility] 7t [place] [address] Care Team Providers Care Children'S Tutor Nursery Name Role Phone Lyly Cam MD Primary Care Provider [phone] Marcell Dutta PharmD Unavailable [phone] Reason for Visit * Reason Comments Med Refill Encounter Details Date Type Department Care Team ([facility] st Contact Info) Description 03/20/2024 Refill [facility] MEDICINE 230 [place], [place] [phone] Lyly Cam MD [address] [place], [place] [phone] Social History Tobacco Use Types Packs/Day Years [...] documented as of this encounter Care Teams Children'S Tutor Nursery Relationship Specialty Start Date End Date Lyly Cam MD [address] [place] [address] PCP - General Family Medicine 03/07/12 Marcell Dutta, DenizD [address] [place] [address] Pharmacist Internal Medicine 04/04/22 12/17/24 documented as of this encounter
--- OUTSIDE RECORDS SUMMARY | 2025-02-20 16:16 | XMS_ITS | Encounter Summary ---
Author Organization [employer] Address 75 [facility] 7t [place] [address] Care Team Providers Care Automobile Radiator Mechanic Name Role Phone Lyly Cam MD Primary Care Provider [phone] Marcell Dutta PharmD Unavailable [phone] Reason for Visit * Reason Comments Med Refill Encounter Details Date Type Department Care Team ([facility] st Contact Info) Description 09/12/2023 Refill [facility] [address] [place], [place] [phone] Lyly Cam MD [address] [place], [place] [phone] Dyslipidemia Social History Tobacco Use Types Packs/Day [...] documented as of this encounter Care Teams Automobile Radiator Mechanic Relationship Specialty Start Date End Date Lyly Cam MD [address] [place] [address] PCP - General Family Medicine 03/07/12 Marcell Dutta, DenizD [address] [place] [address] Pharmacist Internal Medicine 04/04/22 12/17/24 documented as of this encounter
--- OUTSIDE RECORDS SUMMARY | 2025-02-20 16:16 | XMS_ITS | Encounter Summary ---
Author Organization [employer] Address [address] [facility] 7t [place] [address] Care Team Providers Care Automobile Club Membership Sales Agent Name Role Phone Lyly Cam MD Primary Care Provider [phone] Marcell Dutta PharmD Unavailable [phone] Reason for Visit * Reason Comments Med Refill Encounter Details Date Type Department Care Team ([facility] st Contact Info) Description 04/18/2024 Refill [facility] [address] [place], [place] [phone] Nayana Bains MD [address] [place], [place] [phone] Dyslipidemia Social History Tobacco Use Types Packs/Day [...] as of this encounter Care Teams Automobile Club Membership Sales Agent Relationship Specialty Start Date End Date Lyly Cam MD [address] [place] [address] PCP - General Family Medicine 03/07/12 Marcell Dutta, DenizD [address] [place] [address] Pharmacist Internal Medicine 04/04/22 12/17/24 documented as of this encounter
--- OUTSIDE RECORDS SUMMARY | 2025-02-20 16:16 | XMS_ITS | Encounter Summary ---
Author Organization [employer] Address 75 [facility] 7t [place] [address] Care Team Providers Care Residential Treatment Specialist Name Role Phone Lyly Cam MD Primary Care Provider [phone] Marcell Dutta PharmD Unavailable [phone] Reason for Visit * Reason Comments Med Refill Encounter Details Date Type Department Care Team ([facility] st Contact Info) Description 09/28/2023 Refill [facility] [address] [place], [place] [phone] Lyly Cam MD [address] [place], [place] [phone] Dyslipidemia Social History Tobacco Use Types Packs/Day [...] documented as of this encounter Care Teams Residential Treatment Specialist Relationship Specialty Start Date End Date Lyly Cam MD [address] [place] [address] PCP - General Family Medicine 03/07/12 Marcell Dutta, DenizD [address] [place] [address] Pharmacist Internal Medicine 04/04/22 12/17/24 documented as of this encounter
--- OUTSIDE RECORDS SUMMARY | 2025-02-20 16:16 | XMS_ITS | Encounter Summary ---
Author Organization [employer] Address [address] [facility] 7t [place] [address] Care Team Providers Care Account Engineer Name Role Phone Lyly Cam MD Primary Care Provider [phone] Marcell Dutat PharmD Unavailable [phone] Reason for Visit * Reason Comments Med Refill Encounter Details Date Type Department Care Team ([facility] st Contact Info) Description 04/29/2023 Refill [facility] MEDICINE [address] [place], [place] [phone] Lyly Cam MD [address] [place], [place] [phone] Vitamin D deficiency Social History Tobacco Use [...] the past 12 months, has t he [employer], gas, oil or water [employer] threatened to shut off services in your [...] documented as of this encounter Care Teams Account Engineer Relationship Specialty Start Date End Date Lyly Cam MD [address] [place] [address] PCP - General Family Medicine 03/07/12 Marcell Dutta, DenizD [address] [place] [address] Pharmacist Internal Medicine 04/04/22 12/17/24 documented as of this encounter
--- OUTSIDE RECORDS SUMMARY | 2025-02-20 16:16 | XMS_ITS | Encounter Summary ---
Author Organization [employer] Address [address] [facility] 7t [place] [address] Care Team Providers Care Delivery Table Operator Name Role Phone Lyly Cam MD Primary Care Provider [phone] Encounter Details Date Type Department Care Team ([facility] st Contact Info) Description 02/20/2025 Orders Only GENERIC EXTERNAL DATA DEPARTMENT Provider, Generic External Data Social History Tobacco Use Types Packs/Day Years [...] TROPONIN I Routine 02/20/2025 2:06 PM EST CBC WITH AUTO DIFFERENTIAL Routine 02/20/2025 2:06 PM EST MAGNESIUM Routine 02/20/2025 2:06 PM EST COMPREHENSIVE METABOLIC PANEL Routine 02/20/2025 2:06 PM EST documented in this encounter Results * CT Cervical Spine w/o Contrast (02/20/2025 2:21 PM EST) Anatomical Region Laterality Modality Spine, C-spine Computed Tomogra phy 02/20/2025 2:21 PM EST Narrative 02/20/2025 3:14 PM EST [place] [address] CT Scan Report Signed Patient: Ebony Morton MR#: [id number] : 1960 Acct:[id number] Age/Sex: 65 / F ADM Date: 02/20/25 Loc: .ED Attending Dr: Ordering Physician: Kathy Dsouza Date of Service: 02/20/25 Procedure(s): CT cervical spine wo IV con Accession Number(s): [id number] cc: Kathy Dsouza; Lyly Cam MD Report Number: [id number]: Total DLP = 868.00 mGy-cm Reason for [...] by: Eliecer Brown MD 02/20/2025 03:11 PM [facility] Dictated By: Eliecer Brown MD Signed By: <Electronically signed by Eliecer Brown MD in OV> 02/20/25 1511 DD/ 1421 TD/TT: 02/20/25 1433 Wood Tool Maker: ZAIN Procedure Note Donotuseinterpreter, Image - 02/20/[address] [address] [address] Scan Report Signed Patient: Ebony Morton RMR#: M [id number] : 1960cct:[id number] Age/Sex: 65 / FADM Date: 02/20/25 Loc: HO.ED Attending Dr: Ordering Physician: Kathy Dsouza Date of Service: 02/20/25 Procedure(s): CT cervical spine wo IV con Accession Number(s): [id number] cc: Kathy Dsouza; Lyly Cam MD Report Number: [id number]: Total DLP = 868.00 mGy-cm Reason for [...] 02/20/25 1511 DD/ 1421 TD/TT: 02/20/25 1433 Wood Tool Maker: ZAIN [facility] External Provider IMG CT PROCEDURES Final Result * CT Head w/o Contrast (02/20/2025 2:21 PM EST) Anatomical Region Laterality Modality Head, Neck Computed Tomogra phy 02/20/2025 2:21 PM EST Narrative 02/20/2025 2:52 PM EST [address] [address] [address] Scan Report Signed Patient: Ebony Morton MR#: [id number] : 1960 Acct:[id number] Age/Sex: 65 / F ADM Date: 02/20/25 Loc: HO.ED Attending Dr: Ordering Physician: Kathy Dsouza Date of Service: 02/20/25 Procedure(s): CT head/brain wo IV con Accession Number(s): [id number] cc: Kathy Dsouza; Lyly Cam MD Report Number: [id number]: Total DLP = 0.00 mGy-cm Reason for [...] by: Regan Dsouza MD 02/20/2025 02:49 PM [facility] Dictated By: Regan Dsouza MD Signed By: <Electronically signed by Regan Dsouza MD in OV> 02/20/25 1449 DD/ 1421 TD/TT: 02/20/25 1433 Wood Tool Maker: Procedure Note Donotuseinterpreter, Image - 02/20/[address] [place] [address] [address] Scan Report Signed Patient: Ebony Morton RMR#: M [id number] : 1960cct:[id number] Age/Sex: 65 / FADM Date: 02/20/25 Loc: HO.ED Attending Dr: Ordering Physician: Kathy Dsouza Date of Service: 02/20/25 Procedure(s): CT head/brain wo IV con Accession Number(s): [id number] cc: Kathy Dsouza; Lyly Cam MD Report Number: [id number]: Total DLP = 0.00 mGy-cm Reason for [...] 02/20/25 1449 DD/ 1421 TD/TT: 02/20/25 1433 Wood Tool Maker: [facility] External Provider IMG CT PROCEDURES Final Result * (ABNORMAL) High Sensitivity Troponin I (02/20/2025 2:06 PM EST) [facility] TROPONIN I HIGH SENSITIVITY 17.1(H) <3.5 - 17.0 ng/L [facility] Comment:The Lassiter high sens itivity Troponin-I results should beused in conjunction with other diagnostic information suchas ECG, clinical observations and information, and patientsymptoms to aid in the diagnosis of SC. 02/20/2025 2:06 PM EST 02/20/2025 2:09 PM EST Generic External Data Provider LAB BLOOD ORDERAB LES Final Result [facility] [address] [place] [phone] * Magnesium (02/20/2025 2:06 PM EST) [facility] Magnesium 2.1 1.6 - 2.6 mg/dL [facility] 02/20/2025 2:06 PM EST 02/20/2025 2:09 PM EST us Generic External Data Provider LAB BLOOD ORDERAB LES Final Result [facility] [address] [place] [address] [phone] * (ABNORMAL) Comprehensive Metabolic Panel (02/20/2025 2:06 PM EST) Sodium 144 135 - 145 mmol/L [facility] Potassium 3.6 3.3 - 5.1 mmol/L [facility] Chloride 110(H) 96 - 108 mmol/L [facility] Carbon Dioxide 25 22 - 29 mmol/L [facility] Anion Gap 13 12 - 20 [facility] Urea Nitrogen (BUN) 23(H) 9 - 16 mg/dL [facility] Creatinine, Serum 0.86 0.5 - 1.4 mg/dL [facility] Creatinine Clr Calc Pharmacy 69.7 [facility] Comment:Provided height and weight: 167.64 cm,78.1 kg.eGFR (calculated from the MDRD study equation) and eCrCl(calculated from the Cockcroft-Gault equation) are based ondifferent parameters and may not yield comparable results.If eCrCl result is absurd, please check patient'sheight/weight. Estimated Glomerular Filt Rate >60 [facility] Comment:Chronic Kidney Disea se: Estimated GFR < 60 mL/min/1.81h3Lcexcs Kidney Disease: Estimated GFR < 15 mL/min/1.73m2 Glucose 102 60 - 115 mg/dL [facility] Calcium 9.4 8.4 - 10.2 mg/dL [facility] Bilirubin, Total 0.4 0.0 - 1.0 mg/dL [facility] Aspartate Amino Transferase 30 5 - 31 U/L [facility] Alanine Aminotransferase 26 0 - 31 U/L [facility] Total Protein 7.5 6.5 - 8.0 g/dL [facility] Albumin Level 4.6 3.5 - 5.0 g/dL [facility] Alkaline Phosphatase 53 39 - 117 U/L [facility] 02/20/2025 2:06 PM EST 02/20/2025 2:09 PM EST us Generic External Data Provider LAB BLOOD ORDERAB LES Final Result Performing Organization Address City/State/[facility] Co de Phone Number [facility] [address] [place] [phone] * CBC auto differential (02/20/2025 2:06 PM EST) White Blood Count 6.4 4.8 - 10.8 X10*3/uL [facility] Red Blood Count 4.65 4.20 - 5.50 X10*6/uL [facility] Hemoglobin 13.5 12.0 - 16.0 g/dl [facility] Hematocrit 40.6 37.0 - 47.0 % [facility] Mean Corpuscular Volume 87.3 80.0 - 98.0 fL [facility] Mean Corpuscular Hemoglobin 29.0 27.0 - 33.0 pg [facility] Mean Corpuscular HGB Conc 33.3 31.0 - 35.0 g/dl [facility] Red Cell Distribution Width 14.0 11.0 - 16.0 % [facility] Platelet Count 307 160 - 400 X10*3/uL [facility] Mean Platelet Volume 10.1 9.4 - 12.3 fL [facility] Neutrophils Percent Auto 56.4 45 - 73 % [facility] Imm Gran Pct Auto 0.2 0.0 - 0.4 % [facility] Lymphocytes Percent Auto 30.5 20 - 40 % [facility] Monocytes Percent Auto 10.2 2 - 11 % [facility] Eosinophils Percent Auto 1.9 0 - 4 % [facility] Basophils Percent Auto 0.8 0 - 2 % [facility] NRBC Pct Auto 0.0 0.0 - 0.2 /100WBC [facility] Neutrophils Absolute Auto 3.6 2.0 - 8.3 x10*3/uL [facility] Imm Gran Abs Auto 0.01 0.00 - 0.03 X10*3/uL [facility] Lymphocytes Absolute Auto 1.9 1.2 - 4.9 X10*3/uL [facility] Monocytes Absolute Auto 0.7 0.1 - 1.2 X10*3/uL [facility] Eosinophils Absolute Auto 0.1 0.0 - 0.4 X10*3/uL [facility] Basophils Absolute Auto 0.1 0.0 - 0.2 X10*3/uL [facility] NRBC Abs Auto 0.000 0.0 - 0.012 X10*3/uL [facility] 02/20/2025 2:06 PM EST 02/20/2025 2:09 PM EST us Generic External Data Provider LAB BLOOD ORDERAB LES Final Result [facility] [address] [place] [address] [phone] documented in this encounter Visit Diagnoses Not on filedocumented in this encounter Additional Health Concerns Assessment Noted Time PHQ-9 Depression Total Score: 10 025 12:00 PM EDT documented as of this encounter Care Teams Delivery Table Operator Relationship Specialty Start Date End Date Lyly Cam MD [address] [place] [address] PCP - General Family Medicine 03/07/12 documented as of this encounter
--- OUTSIDE RECORDS SUMMARY | 2025-02-20 16:16 | XMS_ITS | Encounter Summary ---
Author Organization [employer] Address [address] [facility] 7t [place] [address] Care Team Providers Care Club Steward Name Role Phone Lyly Cam MD Primary Care Provider [phone] Marcell Dutta PharmD Unavailable [phone] Reason for Visit * Reason Comments Med Refill Encounter Details Date Type Department Care Team ([facility] st Contact Info) Description 03/24/2024 Refill [facility] [address] [place], [place] [phone] Nayana Bains MD [address] [place], [place] [phone] Dyslipidemia Social History Tobacco Use Types Packs/Day [...] documented as of this encounter Care Teams Club Steward Relationship Specialty Start Date End Date Lyly Cam MD [address] [place] [address] PCP - General Family Medicine 03/07/12 Marcell Dutta, DenizD [address] [place] [address] Pharmacist Internal Medicine 04/04/22 12/17/24 documented as of this encounter
--- OUTSIDE RECORDS SUMMARY | 2025-02-20 16:16 | XMS_ITS | Encounter Summary ---
Author Organization [employer] Address [address] [facility] 7t [place] [address] Care Team Providers Care Podiatrist Name Role Phone Lyly Cam MD Primary Care Provider [phone] Marcell Dutta PharmD Unavailable [phone] Reason for Referral * Imaging (Routine) - Closed Specialty Diagnoses / Procedures Referred By Contac t Referred To Contact Radiology Diagnoses Cervical spinal stenosis Procedures MR Cervical Spine w/o Contrast Lyly Cam MD [address] [place] [address] Phone: tel: fax: [facility] [address] [place] [phone] Phone: tel: fax: Referral ID Status Reason Start Date Expiration Date Visits Re quested Visits Authorized [id number] Closed 03/23/2023 03/22/2024 1 1 Encounter Details Date Type Department Care Team (Late st Contact Info) Description 03/23/2023 Orders Only [facility] MEDICINE [address] [place] [address] [phone] Lyly Cam MD [address] [place], [place] [phone] Cervical spinal stenosis (Primary Dx) Social History [...] AM EST Narrative 05/22/2023 4:45 PM EST [address] [address] Magnetic Resonance Report Signed Patient: Ebony Landaverde MR#: [id number] 96 : 1960 Acct:[id number] Age/Sex: 63 / F ADM Date: 05/21/23 Loc: HO.MRI Attending Dr: Lyly Cam MD Ordering Physician: Lyly Cam MD Date of Service: 05/21/23 Procedure(s): MR cervical spine wo con Accession Number(s): [id number] cc: Lyly Cam MD EXAMINATION: MR CERVICAL [...] in OV> 05/22/23 1641 DD/ 1041 TD/TT: Guide Travel: MONIQUE Procedure Note Donotuseinterpreter, Image - 05/22/2023 [place] [address] Magnetic Resonance Report Signed Patient: Ebony Landaverde RMR#: [id number] 96 : 1960cct:[id number] Age/Sex: 63 / FADM Date: 05/21/23 Loc: HO.MRI Attending Dr: Lyly Cam MD Ordering Physician: Lyly Cam MD Date of Service: 05/21/23 Procedure(s): MR cervical spine wo con Accession Number(s): [id number] cc: Lyly Cam MD EXAMINATION: MR CERVICAL [...] in OV> 05/22/23 1641 DD/ 1041 TD/TT: Guide Travel: MONIQUE Lyly Cam MD IMG MRI PROCEDURES Final Result documented in this encounter Visit Diagnoses Diagnosis Cervical spinal stenosis- Primary Spinal stenosis in cervical region documented in this encounter Additional Health Concerns Assessment Noted Time PHQ-9 Depression Total Score: 0 03/21/20 22 1:05 PM EST documented as of this encounter Care Teams Podiatrist Relationship Specialty Start Date End Date Lyly Cam MD [address] [place] [address] PCP - General Family Medicine 03/07/12 Marcell Dutta, Juan José [address] [place] [phone] Pharmacist Internal Medicine 04/04/22 12/17/24 documented as of this encounter
--- OUTSIDE RECORDS SUMMARY | 2025-02-20 16:16 | XMS_ITS | Encounter Summary ---
Author Organization [employer] Address [address] [facility] 7t [place] [address] Care Team Providers Care Electronic Prepress Operator Name Role Phone Lyly Cam MD Primary Care Provider [phone] Marcell Dutta PharmD Unavailable [phone] Reason for Visit * Reason Comments Med Refill Encounter Details Date Type Department Care Team ([facility] st Contact Info) Description 03/24/2024 Refill [facility] [address] [place], [place] [phone] Lyly Cam MD [address] [place], [place] [phone] Vitamin D deficiency Social History Tobacco Use [...] documented as of this encounter Care Teams Electronic Prepress Operator Relationship Specialty Start Date End Date Lyly Cam MD [address] [place] [address] PCP - General Family Medicine 03/07/12 Marcell Dutta, DenizD [address] [place] [address] Pharmacist Internal Medicine 04/04/22 12/17/24 documented as of this encounter
--- OUTSIDE RECORDS SUMMARY | 2025-02-20 16:16 | XMS_ITS | Encounter Summary ---
Author Organization [employer] Address [address] [facility] 7t [place] [address] Care Team Providers Care Lead Cashier Name Role Phone Lyly Cam MD Primary Care Provider [phone] Marcell Dutta PharmD Unavailable [phone] Reason for Visit * Reason Comments Med Refill Encounter Details Date Type Department Care Team ([facility] st Contact Info) Description 04/18/2024 Refill [facility] MED[facility] [address] [place], [place] [phone] Lyly Cam MD [address] [place], [place] [phone] Allergic rhinitis, unspecified seasonality, unspecified trigger; Vitamin [...] documented as of this encounter Care Teams Lead Cashier Relationship Specialty Start Date End Date Lyly Cam MD [address] [place] [address] PCP - General Family Medicine 03/07/12 Marcell Dutta, DenizD [address] [place] [address] Pharmacist Internal Medicine 04/04/22 12/17/24 documented as of this encounter
--- OUTSIDE RECORDS SUMMARY | 2025-02-20 16:16 | XMS_ITS | Encounter Summary ---
Author Organization [employer] Address [address] [facility] 7t [place] [address] Care Team Providers Care Stoker Mechanic Name Role Phone Lyly Cam MD Primary Care Provider [phone] Marcell Dutta PharmD Unavailable [phone] Reason for Visit * Reason Comments Med Refill Encounter Details Date Type Department Care Team ([facility] st Contact Info) Description 04/02/2024 Refill [facility] [address] [place], [place] [phone] Nayana Bains MD [address] [place], [place] [phone] Dyslipidemia Social History Tobacco Use Types Packs/Day [...] documented as of this encounter Care Teams Stoker Mechanic Relationship Specialty Start Date End Date Lyly Cam MD [address] [place] [address] PCP - General Family Medicine 03/07/12 Marcell Dutta, DenizD [address] [place] [address] Pharmacist Internal Medicine 04/04/22 12/17/24 documented as of this encounter
--- OUTSIDE RECORDS SUMMARY | 2025-02-20 16:16 | XMS_ITS | Encounter Summary ---
Author Organization [employer] Address [address] [facility] [address] [place] [address] Care Team Providers Care Manager Gift Name Role Phone Lyly Cam MD Primary Care Provider [phone] Encounter Details Date Type Department Care Team [...] as of this encounter Care Teams Manager Gift Relationship Specialty Start Date End Date Lyly Cam MD [address] [place] [phone] PCP - General Family Medicine 03/07/12 documented as of this encounter
[2025-02-20 16:31] VITALS: BP 148/85; PULSE 70; RESP 14; TEMP 36.8; O2SAT 100
[2025-02-20 16:36] VITALS: BP 148/85; PULSE 70; RESP 14; TEMP 36.8; O2SAT 100
[2025-02-20 16:38] LABS: Appearance Urine Clear; Glucose Urine UA Negative (Negative); PH 6.0 (5.0-9.0); Specific Gravity - Urine 1.025 (1.005-1.025)
--- NOTE | 2025-02-20 16:46 | MHC.EDTECH ---
pt ambulated to and from the bathroom independently, urine sample collected and sent to lab
[2025-02-20] MEDS: Lidocaine 4 % Patch ADH..PATCH 1 PATCH TRANSDERMA (17:16)
[2025-02-20 17:22] VITALS: BP 148/85; PULSE 70; RESP 14; TEMP 36.8; O2SAT 100
== END 2025-02-20 18:32 | disposition home or self-care (01) ==
PROVIDERS: Physician Assistant Medical; Emergency Provider Emergency Medicine; PCP Family Medicine
DX: R55 Syncope and collapse (principal); R51.9 Headache, unspecified; M54.2 Cervicalgia; M54.6 Pain in thoracic spine; R94.31 Abnormal electrocardiogram [ECG] [EKG]; Z79.899 Other long term (current) drug therapy
CPT/HCPCS: 36415; 70450; 72125; 80053; 81003; 83735; 84484; 85025; 93005; 96372; 99284; 99285; J1885

== ENCOUNTER → 2025-02-20 13:47 | Outpatient (BNV) | payer MEDICAID, SELFPAY | PROVIDERS: PCP Family Medicine; Visit Provider Radiology Diagnostic Radiology | DX: S09.90XA Unspecified injury of head, initial encounter (principal); Z04.3 Encounter for examination and observation following other accident | CPT/HCPCS: 70450; 72125 ==

== ENCOUNTER → 2025-02-20 13:48 | Outpatient (BNV) | payer MEDICAID, SELFPAY | PROVIDERS: Emergency Provider Emergency Medicine; PCP Family Medicine; Visit Provider Internal Medicine | DX: R53.1 Weakness (principal) | CPT/HCPCS: 93010 ==

== ENCOUNTER → 2025-03-11 12:46 | Outpatient (REF) | payer MEDICAID, SELFPAY ==
--- OUTSIDE RECORDS SUMMARY | 2025-03-11 16:53 | XMS_ITS | Encounter Summary ---
Author Organization [employer] Address [address] [facility] 7t [place] [address] Care Team Providers Care Top Steep Tender Name Role Phone Lyly Cam MD Primary Care Provider [phone] Marcell Dutta PharmD Unavailable [phone] Reason for Visit * Reason Comments Med Refill Encounter Details Date Type Department Care Team ([facility] st Contact Info) Description 04/29/2023 Refill [facility] MED[facility] [address] [place], [place] [phone] Llyy Cam MD [address] [place], [place] [phone] Vitamin D deficiency Social History Tobacco Use [...] the past 12 months, has t he [employer], gas, oil or water [employer] threatened to shut off services in your [...] documented as of this encounter Care Teams Top Steep Tender Relationship Specialty Start Date End Date Lyly Cam MD [address] [place] [address] PCP - General Family Medicine 03/07/12 Marcell Dutta, DenizD [address] [place] [address] Pharmacist Internal Medicine 04/04/22 12/17/24 documented as of this encounter
--- OUTSIDE RECORDS SUMMARY | 2025-03-11 16:53 | XMS_ITS | Encounter Summary ---
Author Organization [employer] Address [address] [facility] 7t [place] [address] Care Team Providers Care Cloth Folder Machine Name Role Phone Lyly Cam MD Primary Care Provider [phone] Marcell Dutta PharmD Unavailable [phone] Reason for Referral * Imaging (Routine) - Closed Specialty Diagnoses / Procedures Referred By Contac t Referred To Contact Radiology Diagnoses Cervical spinal stenosis Procedures MR Cervical Spine w/o Contrast Lyly Cam MD [address] [place] [phone] Phone: tel: fax: [facility] [address] [place] [phone] Phone: tel: fax: Referral ID Status Reason Start Date Expiration Date Visits Re quested Visits Authorized [id number] Closed 03/23/2023 03/22/2024 1 1 Encounter Details Date Type Department Care Team (Late st Contact Info) Description 03/23/2023 Orders Only [facility] MEDICINE [address] [place] [address] [phone] Lyly Cam MD [address] [place], [place] [phone] Cervical spinal stenosis (Primary Dx) Social History [...] AM EST Narrative 05/22/2023 4:45 PM EST [address] [address] Magnetic Resonance Report Signed Patient: Ebony Landaverde MR#: [id number] 96 : 1960 Acct:[id number] Age/Sex: 63 / F ADM Date: 05/21/23 Loc: HO.MRI Attending Dr: yLly Cam MD Ordering Physician: Lyly Cam MD Date of Service: 05/21/23 Procedure(s): MR cervical spine wo con Accession Number(s): [id number] cc: Lyly Cam MD EXAMINATION: MR CERVICAL [...] in OV> 05/22/23 1641 DD/ 1041 TD/TT: Marble Installation Helper: MONIQUE Procedure Note Donotuseinterpreter, Image - 05/22/2023 [place] [address] Magnetic Resonance Report Signed Patient: Ebony Landaverde RMR#: [id number] 96 : 1960cct:[id number] Age/Sex: 63 / FADM Date: 05/21/23 Loc: HO.MRI Attending Dr: Lyly Cam MD Ordering Physician: Lyly Cam MD Date of Service: 05/21/23 Procedure(s): MR cervical spine wo con Accession Number(s): [id number] cc: Lyly Cam MD EXAMINATION: MR CERVICAL [...] in OV> 05/22/23 1641 DD/ 1041 TD/TT: Marble Installation Helper: MONIQUE Lyly Cam MD IMG MRI PROCEDURES Final Result documented in this encounter Visit Diagnoses Diagnosis Cervical spinal stenosis- Primary Spinal stenosis in cervical region documented in this encounter Additional Health Concerns Assessment Noted Time PHQ-9 Depression Total Score: 0 03/21/20 22 1:05 PM EST documented as of this encounter Care Teams Cloth Folder Machine Relationship Specialty Start Date End Date Lyly Cam MD [address] [place] [address] PCP - General Family Medicine 03/07/12 Marcell Dutta, Juan José [address] [place] [phone] Pharmacist Internal Medicine 04/04/22 12/17/24 documented as of this encounter
--- OUTSIDE RECORDS SUMMARY | 2025-03-11 16:53 | XMS_ITS | Clinical Summary ---
Author Organization [employer] Address [address] [facility] [address] [place] [address] Care Team Providers Care Vacuum Pan Operator Name Role Phone Lyly Cam MD Primary Care Provider [phone] Allergies Active Allergy Reactions Criticality Noted Date Comments Amlodipine 10/13/2015 Atorvastatin 08/23/2012 Bupropion Hives 08/23/2023 Latex Rash Low 08/23/2023 Loratadine Headache 08/25/2013 Meperidine Rash Low 08/23/2012 Midazolam Rash Low 08/23/2012 Montelukast Headache 08/25/2013 Nickel Rash Low 08/23/2023 Simvastatin Itching 08/25/2013 Medications gabapentin (Neurontin) 300 MG capsule TAKE 1 CAPSULE BY MOUTH EVERY MORNING & AT BEDTIME 02/29/20 22 Active cholecalcifero l (D3-1000) 25 MCG (1000 UT) capsuleIndicat ions:Vitamin D deficiency TAKE 1 CAPSULE BY MOUTH EVERY DAY IN THE MORNING 90 capsule 3 04/19/19 25 Active diphenhydrAMIN E (Banophen) 25 MG tablet TAKE 1 TABLET BY MOUTH EVERY DAY AT BEDTIME NEEDED 90 tablet 3 05/31/19 25 Active lisinopril 40 MG tablet Take 1 tablet (40 mg) by mouth Once per day. 90 tablet 3 11/18/19 25 026 Active clobetasol (Temovate) 0.05 % ointment APPLY TO AFFECTED AREA TWICE A DAY 45 g 1 12/17/19 25 Active fluticasone (Flonase) 50 MCG/ACT nasal spray ADMINISTER 1-2 SPRAYS INTO EACH NOSTRIL ONCE PER DAY. SHAKE GENTLY. BEFORE FIRST USE, PRIME PUMP. AFTER USE, CLEAN TIP AND REPLACE CAP. 48 mL 12/17/19 25 026 Active rosuvastatin (Crestor) 5 MG tabletIndicati ons:Dyslipidem ia TAKE 1 TABLET BY MOUTH EVERY DAY IN THE MORNING 90 tablet 3 12/17/19 25 Active omeprazole (PriLOSEC) [address] capsuleIndicat ions:Dyslipide treasure TAKE 1 CAPSULE BY MOUTH ONCE DAILY BEFORE A MEAL 90 capsule 12/17/19 25 Active cetirizine (ZyrTEC) 10 MG tabletIndicati ons:Nasal congestion Take 1 tab daily as needed for allergies or congestion 90 tablet 1 12/17/19 25 Active cyclobenzaprin e (Flexeril) 5 MG tablet TAKE 1 OR 2 TABLETS BY MOUTH AT BEDTIME NEEDED FOR MUSCLE SPASM 60 tablet 1 02/24/20 25 Active mirtazapine (Remeron) 7.5 MG tablet Take 1 tablet (7.5 mg) by mouth at bedtime. 5 tablet 02/24/20 25 Active cromolyn (Opticrom) 4 % ophthalmic solution ADMINISTER 1 DROP INTO BOTH EYES FOUR TIMES DAILY 10 mL 3 03/09/20 Active celecoxib (CeleBREX) 100 MG capsule TAKE 1 CAPSULE BY MOUTH ONCE OR TWICE DAILY NEEDED FOR MODERATE TO SEVERE PAIN 60 capsule 2 03/09/20 25 Active celecoxib (CeleBREX) 100 MG capsule TAKE 1 CAPSULE BY MOUTH ONCE OR TWICE DAILY NEEDED FOR MODERATE TO SEVERE PAIN 60 capsule 2 11/26/19 25 025 Discontinued cyclobenzaprin e (Flexeril) 5 MG tablet TAKE 1 OR 2 TABLETS BY MOUTH AT BEDTIME NEEDED FOR MUSCLE SPASM 60 tablet 1 12/16/19 25 025 Discontinued cromolyn (Opticrom) 4 % ophthalmic solution ADMINISTER 1 DROP INTO BOTH EYES FOUR TIMES DAILY 10 mL 3 12/17/19 25 025 Discontinued meclizine (Antivert) 25 MG tablet Take 1 tablet (25 mg) by mouth if needed in the morning, at noon, and at bedtime for dizziness for up to 15 days. 45 tablet 02/24/20 25 025 Active Problems Problem Noted Date Diagnosed Date Vertigo 02/21/2025 Assessment & Plan (02/23/2025 4:30 PM EST): - Dizziness may be related to vertigo, possibly exacerbated by elevated blood pressure or anxiety. - Prescribed meclizine, to be taken 1/2 to 1 tablet, 2-3 times daily as needed for dizziness. If severe dizziness occurs, return to the emergency department. - Continue with scheduled physical therapy appointment on March 12, 2025. Emphasized importance of vestibular therapy for long-term management. Continue checking daily BP and blood sugar-as needed Assessment & Plan (02/21/2025 4:16 PM EST): - exam suggestive of vestibular dysfunction - refer to Vestibular physical therapy Generalized anxiety disorder 02/17/2025 Chronic neck pain 08/11/2024 Assessment & Plan (02/21/2025 4:11 PM EST): - Status post ACDF C5-C7 on 07/01/2018 - Status post ACDF C4-C5, removal of right C5 screw on 08/17/2023 - Completed physical therapy - Continue judicious use of celecoxib Assessment & Plan (08/11/2024 1:36 PM EDT): [...] therapy Globus sensation 03/20/2022 Assessment & Plan (02/21/2025 4:06 PM EST): -Evaluated by ENT. Normal laryngoscopy -Pt is non-smoker. ENT's impression is that pt might have sustained an injury when she was intubated for her ACDF operation -Referred to speech therapy as recommended by ENT, but was unable to receive the therapy; will check -Currently it is tolerable Assessment & Plan (03/21/2022 4:00 PM EST): -Evaluated by ENT. Normal laryngoscopy -Pt is non-smoker. ENT's impression is that pt might have sustained an injury when she was intubated for her ACDF operation -Referred to speech therapy as recommended by ENT, but was unable to receive the therapy; will check -Currently it is tolerable Cervical spinal stenosis 03/20/2022 Assessment & Plan (02/21/2025 4:10 PM EST): -Followed by [facility] providers and [facility] neurosurgeon. -Last seen by neurosurgeon in [...] about its judicious use. Assessment & Plan (08/17/2024 7:21 PM EDT): -Followed by [facility] providers and [facility] neurosurgeon. -Last seen by neurosurgeon in [...] Plan (01/16/2024 1:43 PM EDT): -Followed by [facility] providers and [facility] neurosurgeon. -Last seen by neurosurgeon in [...] Plan (10/10/2023 5:45 AM EDT): -Followed by [facility] providers and [facility] neurosurgeon. -Last seen by neurosurgeon in [...] Plan (06/07/2023 6:20 AM EDT): -Followed by [facility] providers and neurosurgeon. -Last [...] Plan (03/18/2023 11:23 AM EST): -Followed by [facility] providers and neurosurgeon. -Last seen by neurosurgeon in JanFeb 2019 -Last seen by [facility] provider in May 2019 -s/p ACDF C5-C7 on 07/01/[address] Horn -Continue gabapentin 300 mg bid - Add lidocaine patch - refer back to neurosurgery Assessment & Plan (12/01/2022 6:04 AM EDT): -Followed by [facility] providers and neurosurgeon. -Last seen by neurosurgeon in JanFeb 2019 -Last seen by [facility] provider in May 2019 -s/p ACDF C5-C7 on 07/01/[address] Horn -Tapered down Gabapentin, now maintained at 300 mg bid -Re-evaluate with CT due to worsening pain Assessment & Plan (03/20/2022 10:36 AM EST): -Followed by [facility] providers and neurosurgeon. -Last seen by neurosurgeon in JanFeb 2019 -Last seen by [facility] provider in May 2019 -s/p ACDF C5-C7 on 07/01/[address] Horn -Tapered down Gabapentin, now maintained at 300 mg bid Depression 03/20/2022 Assessment & Plan (02/21/2025 4:09 PM EST): -Hx PTSD -Ending long-term relationship in 2019 -Continue practicing healthy lifestyle, stress reduction, and self-care. Assessment & Plan (10/09/2023 9:46 PM EDT): [...] self-care. Atopic dermatitis 10/12/2015 Assessment & Plan (02/21/2025 4:15 PM EST): - avoid irritation - continue liberal moisturization with hypoallergenic, unscented emollients - judicious use of topical steroid in moderate to severe areas - switch clobetasol from cream to ointment. Assessment & Plan (10/10/2023 11:26 AM EDT): [...] severe areas Dyslipidemia 09/16/2014 Assessment & Plan (02/21/2025 4:04 PM EST): - Last lipid profile: 02/11/2025 total cholesterol 190; HDL 58; LDL 116; triglyceride 82, questionable medication adherence -Current medication: rosuvastatin 5 mg daily -Treatment Hx: intolerance to atorvastatin, simvastatin -Continue working on lifestyle modification Assessment & Plan (11/17/2024 11:52 AM EDT): [...] atorvastatin, simvastatin -Continue working on lifestyle modification Headache 09/16/2014 Assessment & Plan (02/21/2025 4:15 PM EST): - Multifactorial: Tension; possibly medication side effects; sinus; history of neck surgery;? Migraine - Patient does not have severe episode - No neurological deficit - Continue stress reduction and optimize her chronic medical conditions Allergic rhinitis 08/23/2012 Assessment & Plan (10/10/2023 11:26 AM EDT): -Continue Loratadine - add cromolyn eye drops for conjunctivitis. Gastroesophageal reflux disease 08/23/2012 Assessment & Plan (02/21/2025 4:08 PM EST): - Currently taking omeprazole, consider reassessing its appropriateness if taking daily Assessment & Plan (03/20/2022 10:47 AM EST): -continue omeprazole Hypertension 08/23/2012 Assessment & Plan (02/23/2025 4:32 PM EST): Recently seen in the ED with HTN emergency, labs and CT scan was normal. Today she does not have any focal neurological deficits or other symptoms. Rule out whitecoat hypertension, check BP at home Continue lisinopril 40 mg, needs to follow-up with PCP as she has had multiple medication intolerance (see previous notes) Assessment & Plan (02/21/2025 4:00 PM EST): -Goal BP < 130/80 per ACC/AHA (Treatment threshold 140/90); Hx white coat HTN - BP elevated today, home BP has been normal, suprisingly even on lower side of normal - Graduated from CDTM. Patient perceived that her BP control was optimized with lisinopril and other medications were not effective or caused side effects. Patient preferred more autonomy. - Continue checking home BP - Completed 24 hour BP monitor / bioimpedance cardiography hemodynamic measurement in 2018, which showed normal BP measurement at home - Continue working on lifestyle modifications and medication adherence. - Discontinue olmesartan 40 mg qAM per patient's request - Continue lisinopril 40 mg daily -Treatment Hx: nifedipine was discontinued due to headache; atenolol was discontinued due to symptomatic hypotension, chlorthalidone was discontinued due to hypotension, hctz 25 mg caused fatigue, and amlodipine was discontinued due to abdominal pain and LE edema; metoprolol was discontinued due to patient's perception of memory impairment. Lisinopril was discontinued and switched to olmesartan due to ineffectiveness and dizziness. Olmesartan was discontinued because she perceived that it caused her GI upset and confusion. -patient has chronic dizziness, and does not appear to be medication side effect Assessment & Plan (11/17/2024 11:57 AM EDT): [...] monitor / bioimpedance cardiography hemodynamic measurement in 2017, which showed normal BP measurement at home [...] 3 month Prediabetes 08/23/2012 Assessment & Plan (02/21/2025 4:06 PM EST): -Since 2019 A1C > 5.9%, the highest 6.1% in 3593-1941 -12/15/21 6.0% -10/10/23 6.3% -02/11/2025 6.4% -Family Hx DM (mother and daughter) -Continue working on lifestyle modification -Continue screening q6-12 mo Assessment & Plan (11/17/2024 11:58 AM EDT): -Since 2019 A1C > 5.9%, the highest 6.1% in 6176-4258 -12/15/21 6.0% -11/28/22 5.8% -10/10/23 6.3% - 10/11/23 5.9% -Family Hx DM (mother and daughter) -Continue working on lifestyle modification -Continue screening q6-12 mo Assessment & Plan (08/11/2024 1:39 PM EDT): -Since 2019 A1C > 5.9%, the highest 6.1% in 9885-4399 -12/15/21 6.0% -11/28/22 5.8% -10/10/23 6.3% - 10/11/23 5.9% -Family Hx DM (mother and daughter) -Continue working on lifestyle modification -Continue screening q6-12 mo Assessment & Plan (01/16/2024 1:41 PM EDT): -Since 2019 A1C > 5.9%, the highest 6.1% in 2167-8161 -12/15/21 6.0% -11/28/22 5.8% -10/10/23 6.3% -Family Hx DM (mother and daughter) -Continue working on lifestyle modification -Continue screening q6-12 mo Assessment & Plan (10/09/2023 9:45 PM EDT): -Since 2019 A1C > 5.9%, the highest 6.1% in 9725-3527 -12/15/21 6.0% -11/28/22 5.8% -Family Hx DM (mother and daughter) -Continue working on lifestyle modification -Continue screening q6-12 mo Assessment & Plan (06/23/2023 6:33 AM EDT): -Since 2019 A1C > 5.9%, the highest 6.1% in 12/15/21 6.0% -11/28/22 5.8% -Family Hx DM (mother and daughter) -Continue working on lifestyle modification -Continue screening q6-12 mo Assessment & Plan (03/18/2023 11:31 AM EST): -Since 2019 A1C > 5.9%, the highest 6.1% in 12/15/21 6.0% -11/28/22 5.8% -Family Hx DM (mother [...] q6-12 mo Insomnia 08/23/2012 Assessment & Plan (02/21/2025 4:16 PM EST): -Stress reduction -Practice healthy sleep hygiene Assessment & Plan (03/21/2022 3:59 PM EST): -Stress reduction -Practice healthy sleep hygiene Encounters Date Type Department Care Team Description 03/07/2025 Refill [facility] [address] [place] [address] Lyly Cam MD 02/26/2025 Telephone [facility] [address] [place] [address] Linh Santizo, ADMISSIONS COUNSELOR Follow-up 02/23/2025 9:20 AM EST Office Visit [facility] [address] [place] [address] Patti Mccullough MD Vertigo (Primary Dx); Dizziness; Primary hypertension 02/23/2025 Travel 02/20/2025 Orders Only GENERIC EXTERNAL DATA DEPARTMENT Provider, Generic External Data 02/20/2025 Refill [facility] [address] [facility] [place] [address] Lyly Cam MD 02/17/2025 11:15 AM EST Office Visit [facility] [address] [place] [address] Lyly Cam MD Hypertension, unspecified type (Primary Dx); Dyslipidemia; Gastroesophageal reflux disease, unspecified whether esophagitis present; Globus sensation; Current moderate episode of major depressive disorder, unspecified whether recurrent (CMS/HCC) ([facility]); Generalized anxiety disorder; Chronic neck pain; Chronic tension-type headache, not intractable; Atopic dermatitis, unspecified type; Psychophysiological insomnia; Peripheral vertigo, unspecified laterality; Encounter for immunization; Cervical spinal stenosis; Malodorous urine; Allergic rhinitis, unspecified seasonality, unspecified trigger; Prediabetes; Vertigo 02/17/2025 Travel 02/16/2025 Telephone [facility] [place] [address] Lyly Cam MD chartprep 12/17/2024 2:00 PM EDT Telemedicine [facility] [address] [place] [phone] Marcell Dutta PharmD Hypertension, unspecified type (Primary Dx) 12/15/2024 Refill [facility] [address] [place] [address] Lyly Cam MD Dyslipidemia; Nasal congestion 12/15/2024 Refill [facility] [address] [place] [address] Nakia Ponce MD 12/15/2024 Refill [facility] [address] [place] [address] Denae Decker ANP Nasal congestion 12/14/2024 Refill [facility] [address] [place] [address] Lyly Cam MD from Last 3 Months [...] Sign Reading Time Taken Comments Blood Pressure 178/104 02/23/2025 9:13 AM EST man ually Pulse 79 02/23/2025 9:12 AM EST Temperature 36.7 C (98 F) 02/23/2025 9:12 AM EST Respiratory Rate 18 02/23/2025 9:12 AM EST Oxygen Saturation 100% 02/23/2025 9:12 AM EST Inhaled Oxygen Concentration - - Weight 80.3 kg (177 lb 2 oz) 02/23/2025 9:12 AM EST Height 160 cm (5' 3 ) 02/23/2025 9:12 AM EST Body Mass Index 31.38 02/23/2025 9:12 AM EST Plan of Treatment Health Maintenance [...] 10/11/2023, 10/10/2023, Additional history exists Tobacco Screening 02/23/2026 02/23/2025 Colonoscopy 09/14/2026 09/14/2016 Colorectal Cancer Screening 09/14/2026 [...] Procedure Name Priority Date/Time Associated Diagnosis Comments POCT URINALYSIS DIPSTICK Routine 02/23/2025 10:02 AM EST Dizziness URINALYSIS WITH REFLEX MICROSCOPIC Routine 02/20/2025 4:[address] CERVICAL SPINE WO CONTRAST Routine 02/20/2025 [...] Relevant to Health Maintenance Results * (ABNORMAL) POCT Urinalysis (02/23/2025 10:02 AM EST) Color, UA Light Yellow Clarity, UA Clear Glucose, UA Negative Bilirubin, UA Negative Ketones, UA Negative Spec Grav, UA 1.010 Blood, UA Positive(A) Negative, None Detected Comment:Trace-intact pH, UA 7.0 Protein, UA Negative Urobilinogen, UA 0.2 Leukocytes, UA Negative Negative, Rare, Trace, 1+ (17), 2+ (35), 3+ (70), Trace (15) Nitrite, UA Negative Negative, None Detected Appearance, UA clear QC Media Lot # [id number] Lot# Expiration Date Urine (Urine, Random) 02/23/2025 10:02 AM EST Patti Mccullough MD POINT OF CARE TEST ENTER /EDIT ORDERABLES Final Result * Urinalysis w/reflex microscopic (02/20/2025 4:32 PM EST) Color Urine Yellow [facility] Appearance Urine Clear [facility] PH 6.0 5.0 - 9.0 [facility] Glucose Urine UA Negative Negative mg/dL [facility] Urine Blood Negative Negative [facility] Specific [place] - Urine 1.025 1.005 - 1.025 [facility] Urine Protein Negative Neg-Trace mg/dL [facility] Urine Ketones Negative Negative mg/dL [facility] Nitrite Urine Negative Negative [facility] Leukocyte Esterase Urine Negative Negative [facility] 02/20/2025 4:32 PM EST 02/20/2025 4:35 PM EST Narrative [facility] - 02/20/2025 4:38 PM EST Urine, Clean Catch us Generic External Data Provider LAB URINE ORDERAB LES Final Result [facility] [address] [place] [phone] * CT Cervical Spine w/o Contrast (02/20/2025 2:21 PM EST) Anatomical Region Laterality Modality Spine, C-spine Computed Tomogra phy 02/20/2025 2:21 PM EST Narrative 02/20/2025 3:14 PM EST [address] [address] [address] Scan Report Signed Patient: Ebony Morton MR#: [id number] : 1960 Acct:[id number] Age/Sex: 65 / F ADM Date: 02/20/25 Loc: HO.ED Attending Dr: Ordering Physician: Kathy Dsouza Date of Service: 02/20/25 Procedure(s): CT cervical spine wo IV con Accession Number(s): [id number] cc: Kathy Dsouza; Lyly Cam MD Report Number: [id number]: Total DLP = 868.00 mGy-cm Reason for [...] by: Eliecer Brown MD 02/20/2025 03:11 PM [facility] Dictated By: Eliecer Brown MD Signed By: <Electronically signed by Eliecer Brown MD in OV> 02/20/25 1511 DD/ 1421 TD/TT: 02/20/25 1433 Shank Tapper: ZAIN Procedure Note Donotuseinterpreter, Image - 02/20/[address] [place] [address] [address] Scan Report Signed Patient: Ebony Morton RMR#: M [id number] : 1960cct:[id number] Age/Sex: 65 / FADM Date: 02/20/25 Loc: HO.ED Attending Dr: Ordering Physician: Kathy Dsouza Date of Service: 02/20/25 Procedure(s): CT cervical spine wo IV con Accession Number(s): [id number] cc: Kathy Dsouza; Lyly Cam MD Report Number: [id number]: Total DLP = 868.00 mGy-cm Reason for [...] 02/20/25 1511 DD/ 1421 TD/TT: 02/20/25 1433 Shank Tapper: ZAIN [facility] External Provider IMG CT PROCEDURES Final Result * CT Head w/o Contrast (02/20/2025 2:21 PM EST) Anatomical Region Laterality Modality Head, Neck Computed Tomogra phy 02/20/2025 2:21 PM EST Narrative 02/20/2025 2:52 PM EST [address] [place] [address] CT Scan Report Signed Patient: Ebony Morton MR#: [id number] : 1960 Acct:[id number] Age/Sex: 65 / F ADM Date: 02/20/25 Loc: HO.ED Attending Dr: Ordering Physician: Kathy Dsouza Date of Service: 02/20/25 Procedure(s): CT head/brain wo IV con Accession Number(s): [id number] cc: Kathy Dsouza; Lyly Cam MD Report Number: [id number]: Total DLP = 0.00 mGy-cm Reason for [...] by: Regan Dsouza MD 02/20/2025 02:49 PM [facility] Dictated By: Regan Dsouza MD Signed By: <Electronically signed by Regan Dsouza MD in OV> 02/20/25 1449 DD/ 1421 TD/TT: 02/20/25 1433 Shank Tapper: Procedure Note Donotuseinterpreter, Image - 02/20/[address] [address] [address] Scan Report Signed Patient: Ebony Morton RMR#: M [id number] : 1960cct:[id number] Age/Sex: 65 / FADM Date: 02/20/25 Loc: HO.ED Attending Dr: Ordering Physician: Kathy Dsouza Date of Service: 02/20/25 Procedure(s): CT head/brain wo IV con Accession Number(s): [id number] cc: Kathy Dsouza; Lyly Cam MD Report Number: [id number]: Total DLP = 0.00 mGy-cm Reason for [...] by: Regan Dsouza MD 02/20/2025 02:49 PM [facility] Dictated By: Regan Dsouza MD Signed By: <Electronically signed by Regan Dsouza MD in OV> 02/20/25 1449 DD/ 1421 TD/TT: 02/20/25 1433 Shank Tapper: [facility] External Provider IMG CT PROCEDURES Final Result * (ABNORMAL) High Sensitivity Troponin I (02/20/2025 2:06 PM EST) [facility] TROPONIN I HIGH SENSITIVITY 17.1(H) <3.5 - 17.0 ng/L [facility] Comment:The Lassiter high sens itivity Troponin-I results should beused in conjunction with other diagnostic information suchas ECG, clinical observations and information, and patientsymptoms to aid in the diagnosis of NC. 02/20/2025 2:06 PM EST 02/20/2025 2:09 PM EST Generic External Data Provider LAB BLOOD ORDERAB LES Final Result [facility] [address] [place] [address] [phone] * CBC auto differential (02/20/2025 2:06 PM EST) [facility] White Blood Count 6.4 4.8 - 10.8 X10*3/uL [facility] Red Blood Count 4.65 4.20 - 5.50 X10*6/uL [facility] Hemoglobin 13.5 12.0 - 16.0 g/dl [facility] Hematocrit 40.6 37.0 - 47.0 % [facility] Mean Corpuscular Volume 87.3 80.0 - 98.0 fL [facility] Mean Corpuscular Hemoglobin 29.0 27.0 - 33.0 pg [facility] Mean Corpuscular HGB Conc 33.3 31.0 - 35.0 g/dl [facility] Red Cell Distribution Width 14.0 11.0 - 16.0 % [facility] Platelet Count 307 160 - 400 X10*3/uL [facility] Mean Platelet Volume 10.1 9.4 - 12.3 fL [facility] Neutrophils Percent Auto 56.4 45 - 73 % [facility] Imm Gran Pct Auto 0.2 0.0 - 0.4 % [facility] Lymphocytes Percent Auto 30.5 20 - 40 % [facility] Monocytes Percent Auto 10.2 2 - 11 % [facility] Eosinophils Percent Auto 1.9 0 - 4 % [facility] Basophils Percent Auto 0.8 0 - 2 % [facility] NRBC Pct Auto 0.0 0.0 - 0.2 /100WBC [facility] Neutrophils Absolute Auto 3.6 2.0 - 8.3 x10*3/uL [facility] Imm Gran Abs Auto 0.01 0.00 - 0.03 X10*3/uL [facility] Lymphocytes Absolute Auto 1.9 1.2 - 4.9 X10*3/uL [facility] Monocytes Absolute Auto 0.7 0.1 - 1.2 X10*3/uL [facility] Eosinophils Absolute Auto 0.1 0.0 - 0.4 X10*3/uL [facility] Basophils Absolute Auto 0.1 0.0 - 0.2 X10*3/uL [facility] NRBC Abs Auto 0.000 0.0 - 0.012 X10*3/uL [facility] 02/20/2025 2:06 PM EST 02/20/2025 2:09 PM EST us Generic External Data Provider LAB BLOOD ORDERAB LES Final Result [facility] [address] [place] [phone] * Magnesium (02/20/2025 2:06 PM EST) Magnesium 2.1 1.6 - 2.6 mg/dL [facility] 02/20/2025 2:06 PM EST 02/20/2025 2:09 PM EST us Generic External Data Provider LAB BLOOD ORDERAB LES Final Result [facility] [address] [place] [phone] * (ABNORMAL) Comprehensive Metabolic Panel (02/20/2025 2:06 PM EST) Sodium 144 135 - 145 mmol/L [facility] Potassium 3.6 3.3 - 5.1 mmol/L [facility] Chloride 110(H) 96 - 108 mmol/L [facility] Carbon Dioxide 25 22 - 29 mmol/L [facility] Anion Gap 13 12 - 20 [facility] Urea Nitrogen (BUN) 23(H) 9 - 16 mg/dL [facility] Creatinine, Serum 0.86 0.5 - 1.4 mg/dL [facility] Creatinine Clr Calc Pharmacy 69.7 [facility] Comment:Provided height and weight: 167.64 cm,78.1 kg.eGFR (calculated from the MDRD study equation) and eCrCl(calculated from the Cockcroft-Gault equation) are based ondifferent parameters and may not yield comparable results.If eCrCl result is absurd, please check patient'sheight/weight. Estimated Glomerular Filt Rate >60 [facility] Comment:Chronic Kidney Disea se: Estimated GFR < 60 mL/min/1.62r1Emffup Kidney Disease: Estimated GFR < 15 mL/min/1.73m2 Glucose 102 60 - 115 mg/dL [facility] Calcium 9.4 8.4 - 10.2 mg/dL [facility] Bilirubin, Total 0.4 0.0 - 1.0 mg/dL [facility] Aspartate Amino Transferase 30 5 - 31 U/L [facility] Alanine Aminotransferase 26 0 - 31 U/L [facility] Total Protein 7.5 6.5 - 8.0 g/dL [facility] Albumin Level 4.6 3.5 - 5.0 g/dL [facility] Alkaline Phosphatase 53 39 - 117 U/L [facility] 02/20/2025 2:06 PM EST 02/20/2025 2:09 PM EST us Generic External Data Provider LAB BLOOD ORDERAB LES Final Result Performing Organization Address [facility]/ZIP Co de Phone Number [facility] [address] [place] [address] [phone] * (ABNORMAL) Urinalysis, Complete, with Reflex to Culture (02/17/2025 4:19 PM EST) Color Urine Yellow [facility] Appearance Urine Clear [facility] PH 6.0 5.0 - 9.0 [facility] Glucose Urine UA Negative Negative mg/dL [facility] Urine Blood Negative Negative [facility] Specific [place] - Urine 1.025 1.005 - 1.025 [facility] Urine Protein Negative Neg-Trace mg/dL [facility] Urine Ketones Negative Negative mg/dL [facility] Nitrite Urine Negative Negative [facility] Leukocyte Esterase Urine Trace(A) Negative [facility] RBC Urine 0-2 0 - 2 /HPF [facility] Urine WBC 0-5 0 - 5 /HPF [facility] Urine Squamous Epithelial Cell 0-2 0 - 2 /HPF [facility] Urine Bacteria None Seen None Seen [facility] Hyaline Casts, Urine 0-2 0 - 2 /LPF [facility] Urine 02/17/2025 4:19 PM EST 02/17/2025 6:09 PM EST Narrative [facility] - 02/17/2025 7:02 PM EST Urine, Clean Catch us Lyly Cam MD LAB URINE ORDERABLES Final Resul t Performing Organization Address City/[facility]/ZIP Co de Phone Number [facility] [address] [place] [address] [phone] * (ABNORMAL) Lipid Panel with Reflex to Direct LDL (02/11/2025 10:10 AM EST) Triglycerides 82 <150 mg/dL [facility] Comment:Desirable Triglyceri de: less than 150 mg/dLBorderline High Triglyceride 150-199 mg/dLHigh Triglyceride: 200-499 mg/dLVery High Triglyceride: greater than or equal to 5OO mg/dL Cholesterol 190 <200 mg/dL [facility] Comment:Desirable Cholestero l: less than 200 mg/dLBorderline High Cholesterol: 200-239 mg/dLHigh Cholesterol: greater than 239 mg/dL LDL Cholesterol Calculated 116(H) <100 mg/dL [facility] Comment:Desirable LDL: less than 100 mg/dLNear Optimal/Above Optimal LDL: 110- 129 mg/dLBorderline High LDL: 130-159 mg/dLHigh LDL: 160-189 mg/dLVery High LDL: greater than or equal to 190 mg/dL HDL Cholesterol 58 >40 mg/dL [facility] Comment:Desirable HDL: great er than 40 mg/dL Note: This HDL assay may give artificially low results in patients with liver disease. Blood 02/11/2025 10:1 0 AM EST 02/11/2025 11:01 AM EST us Lyly Cam MD LAB BLOOD ORDERABLES Final Resul t [facility] [address] [place] [address] [phone] * Albumin, Random Urine W/Creatinine (02/11/2025 10:10 AM EST) Creatinine, Urine 209.41 mg/dL [facility] Microalbumin Urine 13.0 mg/L [facility] Microalbum Creatinine Ratio Ur 6.2 <30 ug/mg cr [facility] Comment:Albumin/Creatinine R atio Reference Ranges: Normal: < 30 ug/mg creatinine Microalbuminuria: 30 - 300 ug/mg creatinineClinical Albuminuria: > 300 ug/mg creatinine Urine 02/11/2025 10:1 0 AM EST 02/11/2025 11:06 AM EST us Lyly Cam MD LAB URINE ORDERABLES Final Resul t Performing Organization Address City/[facility]/ZIP Co de Phone Number [facility] [address] [place] [phone] * (ABNORMAL) Hemoglobin A1c (02/11/2025 10:10 AM EST) Hemoglobin A1c 6.4(H) <6.0 % [facility] Comment:Hemoglobin A1C Refer ence Range Adults: 4.8 - 6.0 % Non diabetic: < 6.0 % Goal: < 7.0 %Additional Action Suggested: > 8.0 %Note: Hemoglobin A1c results are invalid for patients with abnormal amounts of HbF. Blood transfusions may impact the HbA1c concentration in the patient sample. Estimated Average Glucose 137 mg/dL [facility] Comment:eAG = Estimated ave rage glucose which is %A1C expressed asaverage glucose, using the formula of the A6Z-MsysoouYhdjyxp Glucose study (ADAG), Diabetes Care, Vol.31,#8,Oct. 2007 Blood Venous blood specimen / Unknown 02/11/2025 10:10 AM EST 02/11/2025 11:01 AM EST Lyly Cam MD LAB BLOOD ORDERABLES Final Resul t Performing Organization Address City/[facility]/ZIP Co de Phone Number [facility] [address] [place] [phone] * Hepatic Function Panel (02/11/2025 10:10 AM EST) Bilirubin, Total 0.6 0.0 - 1.0 mg/dL [facility] Bilirubin, Direct 0.2 0.0 - 0.5 mg/dL [facility] Aspartate Amino Transferase 27 5 - 31 U/L [facility] Alanine Aminotransferase 20 0 - 31 U/L [facility] Total Protein 7.6 6.5 - 8.0 g/dL [facility] Albumin Level 4.5 3.5 - 5.0 g/dL [facility] Alkaline Phosphatase 55 39 - 117 U/L [facility] Blood Venous blood specimen / Unknown 02/11/2025 10:10 AM EST 02/11/2025 11:01 AM EST us Lyly Cam MD LAB BLOOD ORDERABLES Final Resul t Performing Organization Address City/[facility]/ZIP Co de Phone Number [facility] [address] [place] [phone] * (ABNORMAL) Basic Metabolic Panel (02/11/2025 10:10 AM EST) Sodium 141 135 - 145 mmol/L [facility] Potassium 3.6 3.3 - 5.1 mmol/L [facility] Chloride 104 96 - 108 mmol/L [facility] Carbon Dioxide 29 22 - 29 mmol/L [facility] Anion Gap 12 12 - 20 [facility] Urea Nitrogen (BUN) 20(H) 9 - 16 mg/dL [facility] Creatinine, Serum 0.87 0.5 - 1.4 mg/dL [facility] Estimated Glomerular Filt Rate >60 [facility] Comment:Chronic Kidney Disea se: Estimated GFR < 60 mL/min/1.79v0Hzbdzx Kidney Disease: Estimated GFR < 15 mL/min/1.73m2 Glucose 94 60 - 115 mg/dL [facility] Calcium 9.8 8.4 - 10.2 mg/dL [facility] Blood Venous blood specimen / Unknown 02/11/2025 10:10 AM EST 02/11/2025 11:01 AM EST us Lyly Cam MD LAB BLOOD ORDERABLES Final Resul t Performing Organization Address City/[facility]/ZIP Co de Phone Number [facility] [address] [place] [phone] * BI Mammogram Screening Tomosynthesis Bilateral (10/15/2024 3:08 PM EDT) Anatomical Region Laterality Modality Breast Bilateral Mammography 10/15/2024 3:08 PM EDT Narrative 10/21/2024 7:50 PM EDT [place] [facility] [address] [place] [address] Mammography Report Signed Patient: Ebony Landaverde MR#: [id number] 96 : 1960 Acct:[id number] Age/Sex: 64 / F ADM Date: 10/15/24 Loc: HO.MAMMO Attending Dr: Lyly Cam MD Ordering Physician: Lyly Cam MD Results: 1Negative Date of Service: 10/15/24 Follow Up: 1 Year From Orig ina Mammogram Procedure(s): MM tomosynthesis screening BI Accession Number(s): [id number] cc: Lyly Cam MD EXAMINATION: MM SCREENING [...] OV> 10/21/241945 DD/ 1508 TD/TT: 10/15/24 1528 Shank Tapper: Procedure Note Donotuseinterpreter, Image - 10/21/[address] [facility] [address] [place] [address] Mammography Report Signed Patient: Ebony Landaverde RMR#: [id number] [birth year] : 1960cct:[id number] Age/Sex: 64 / FADM Date: 10/15/24 Loc: HO.MAMMO Attending Dr: Lyly Cam MD Ordering Physician: Lyly Cam MDResults: 1Negative Date of Service: 10/15/24Follow Up: 1 Year From Orig inal Mammogram Procedure(s): MM tomosynthesis screening BI Accession Number(s): [id number] cc: Lyly Cam MD EXAMINATION: MM SCREENING [...] OV> 10/21/241945 DD/ 1508 TD/TT: 10/15/24 1528 Shank Tapper: Lyly Cam MD IMG BI PROCEDURES Final Result * THINPREP TIS PAP AND HPV mRNA E6/E7 REFLEX HPV 16,18/45 (01/19/2021 4:11 PM EDT) Clinical Information: None given [facility] COMMENT SEE COMMENT FOUNDAT[facility] ON [...] along with historic and current clinical information. Comment: This Pap test has been evaluated with computer assisted technology. [facility] Liability Claims Examiner: SEE COMMENT [facility] Comment: SL, CT(ASCP) CT screening location: [place] [address] HPV nRNA E6/E7 Not Detected Not Detected [facility] Comment: Methodology: Grocery Store Courtesy Clerk-Mediated Amplification This assay detects E6/E7 viral messenger RNA (mRNA) from 14 high-risk HPV types (16,18,31,33,35,39,45,51,52,56,58,59,66,68). The analytical performance characteristics of this assay have been determined by [employer]. The modifications have not been cleared or approved by the FDA. This assay has been validated pursuant to the CLIA regulations and is used for clinical purposes. For additional information, please refer to http://education.Innoz.Kahnoodle/faq/WYD921a4 (This link if provided for information/ educational purposes only.) NO COLLECTION DATE RECEIVED. WE HAVE USED THE DATE THE SPECIMEN WAS RECEIVED BY THIS LABORATORY THE COLLECTION DATE. IF THIS IS INCORRECT, PLEASE CONTACT CLIENT SERVICES. PHONE NUMBER: Interpretation/Res ult: SEE COMMENT [facility] Comment: Negative for intraepithelial lesion or malignancy. Atrophic pattern; predominantly parabasal cells LMP: NONE [facility]IVEN [facility] Prev. BX: NONE [facility]IVEN [facility] Prev. PAP: NONE [facility]IVEN [facility] SOURCE: None given [facility] Statement Of Adequacy: SATISFACTORY FOR EVALUATION [facility] 01/19/2021 4:11 PM EDT Lyly Cam MD LAB PATHOLOGY ORDERABLES Final R esult [facility] [address] * Hepatitis C Antibody (01/29/2018) Hepatitis C Antibody Nonreactive Blood 01/29/2018 Historical Provider MD HEALTH MAINTENANCE Final Result * HIV 1/2 Antigen and Antibody (01/29/2018) HIV Ag/Ab Nonreactive 01/29/2018 Historical Provider HEALTH MAINTENANCE Final Result * Colonoscopy (09/14/2016) Colonoscopy Normal Normal 09/14/2016 [facility] MAINTENANCE Edited Result - Final from Last 3 Months or Most Recently Relevant to Health Maintenance Insurance [facility] C3 Advance Directives Documents on File Type Date Recorded 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 [address] PCP - General Family Medicine 03/07/12
--- OUTSIDE RECORDS SUMMARY | 2025-03-11 16:54 | XMS_ITS | Encounter Summary ---
Author Organization [employer] Address [address] [facility] 7t [place] [address] Care Team Providers Care Cigar Patcher Name Role Phone Lyly Cam MD Primary Care Provider [phone] Marcell Dutta PharmD Unavailable [phone] Reason for Visit * Reason Comments Med Refill Encounter Details Date Type Department Care Team ([facility] st Contact Info) Description 09/28/2023 Refill [facility] [address] [place], [place] [phone] Lyly Cam MD [address] [place], [place] [phone] Dyslipidemia Social History Tobacco Use Types Packs/Day [...] documented as of this encounter Care Teams Cigar Patcher Relationship Specialty Start Date End Date Lyly Cam MD [address] [place] [address] PCP - General Family Medicine 03/07/12 Marcell Dutta, DenizD [address] [place] [address] Pharmacist Internal Medicine 04/04/22 12/17/24 documented as of this encounter
--- OUTSIDE RECORDS SUMMARY | 2025-03-11 16:54 | XMS_ITS | Encounter Summary ---
Author Organization [employer] Address 75 [facility] 7t [place] [address] Care Team Providers Care Automotive Lot Attendant Name Role Phone Lyly Cam MD Primary Care Provider [phone] Marcell Dutta PharmD Unavailable [phone] Reason for Visit * Reason Comments Med Refill Encounter Details Date Type Department Care Team ([facility] st Contact Info) Description 04/18/2024 Refill [facility] [address] [place], [place] [phone] Lyly Cam MD [address] [place], [place] [phone] Allergic rhinitis, unspecified seasonality, unspecified trigger; Vitamin [...] as of this encounter Care Teams Automotive Lot Attendant Relationship Specialty Start Date End Date Lyly Cam MD [address] [place] [address] PCP - General Family Medicine 03/07/12 Marcell Dutta, DenizD [address] [place] [address] Pharmacist Internal Medicine 04/04/22 12/17/24 documented as of this encounter
--- OUTSIDE RECORDS SUMMARY | 2025-03-11 16:54 | XMS_ITS | Encounter Summary ---
Author Organization [employer] Address 75 [facility] 7t [place] [address] Care Team Providers Care Curtain Stitcher Name Role Phone Lyly Cam MD Primary Care Provider [phone] Marcell Dutta PharmD Unavailable [phone] Reason for Visit * Reason Comments Med Refill Encounter Details Date Type Department Care Team ([facility] st Contact Info) Description 03/20/2024 Refill [facility] [address] [place], [place] [phone] Lyly Cam MD [address] [place], [place] [phone] Social History Tobacco Use Types Packs/Day Years [...] documented as of this encounter Care Teams Curtain Stitcher Relationship Specialty Start Date End Date Lyly Cam MD [address] [place] [address] PCP - General Family Medicine 03/07/12 Marcell Dutta, DenizD [address] [place] [address] Pharmacist Internal Medicine 04/04/22 12/17/24 documented as of this encounter
--- OUTSIDE RECORDS SUMMARY | 2025-03-11 16:54 | XMS_ITS | Encounter Summary ---
Author Organization [employer] Address 75 [facility] 7t [place] [address] Care Team Providers Care Stocking Inspector Name Role Phone Lyly Cam MD Primary Care Provider [phone] Marcell Dutta PharmD Unavailable [phone] Reason for Visit * Reason Comments Med Refill Encounter Details Date Type Department Care Team ([facility] st Contact Info) Description 09/12/2023 Refill [facility] [address] [place], [place] [phone] Lyly Cam MD [address] [place], [place] [phone] Dyslipidemia Social History Tobacco Use Types Packs/Day [...] documented as of this encounter Care Teams Stocking Inspector Relationship Specialty Start Date End Date Lyly Cam MD [address] [place] [address] PCP - General Family Medicine 03/07/12 Marcell Dutta, DenizD [address] [place] [address] Pharmacist Internal Medicine 04/04/22 12/17/24 documented as of this encounter
--- OUTSIDE RECORDS SUMMARY | 2025-03-11 16:54 | XMS_ITS | Encounter Summary ---
Author Organization [employer] Address [address] [facility] 7t [place] [address] Care Team Providers Care Rendering Equipment Tender Name Role Phone Lyly Cam MD Primary Care Provider [phone] Marcell Dutta PharmD Unavailable [phone] Reason for Visit * Reason Comments Med Refill Encounter Details Date Type Department Care Team ([facility] st Contact Info) Description 11/20/2022 Refill [facility] 230 [place], [place] [phone] Lyly Cam MD [address] [place], [place] [phone] Dyslipidemia Social History Tobacco Use Types Packs/Day [...] documented as of this encounter Care Teams Rendering Equipment Tender Relationship Specialty Start Date End Date Lyly Cam MD [address] [place], [place] [phone] PCP - General Family Medicine 03/07/12 Marcell Dutta, DenizD [address] [place], [place] [address] [address] Pharmacist Internal Medicine 04/04/22 12/17/24 documented as of this encounter
--- OUTSIDE RECORDS SUMMARY | 2025-03-11 16:54 | XMS_ITS | Encounter Summary ---
Author Organization [employer] Address 75 [facility] 7t [place] [address] Care Team Providers Care Tube Room Supervisor Name Role Phone Lyly Cam MD Primary Care Provider [phone] Marcell Dutta PharmD Unavailable [phone] Reason for Visit * Reason Comments Med Refill Encounter Details Date Type Department Care Team ([facility] st Contact Info) Description 01/30/2023 Refill [facility] [address] [place], [place] [phone] Lyly Cam MD [address] [place], [place] [phone] Dyslipidemia Social History Tobacco Use Types Packs/Day [...] documented as of this encounter Care Teams Tube Room Supervisor Relationship Specialty Start Date End Date Lyly Cam MD [address] [place] [address] PCP - General Family Medicine 03/07/12 Marcell Dutta, DenizD [address] [place] [address] Pharmacist Internal Medicine 04/04/22 12/17/24 documented as of this encounter
--- OUTSIDE RECORDS SUMMARY | 2025-03-11 16:54 | XMS_ITS | Encounter Summary ---
Author Organization [employer] Address [address] [facility] [address] 7t [place] [address] Care Team Providers Care Probation And Parole Officer Name Role Phone Lyly Cam MD Primary Care Provider [phone] Marcell Dutta PharmD Unavailable [phone] Reason for Visit * Reason Comments Med Refill Encounter Details Date Type Department Care Team ([facility] st Contact Info) Description 03/24/2024 Refill [facility] [address] [place], [place] [phone] Lyly Cam MD [address] [place], [place] [phone] Vitamin D deficiency Social History Tobacco Use [...] documented as of this encounter Care Teams Probation And Parole Officer Relationship Specialty Start Date End Date Lyly Cam MD [address] [place] [address] PCP - General Family Medicine 03/07/12 Marcell Dutta, DenizD [address] [place] [address] Pharmacist Internal Medicine 04/04/22 12/17/24 documented as of this encounter
--- OUTSIDE RECORDS SUMMARY | 2025-03-11 16:54 | XMS_ITS | Encounter Summary ---
Author Organization [employer] Address 75 [facility] 7t [place] [address] Care Team Providers Care Ingot Passer Name Role Phone yLly Cam MD Primary Care Provider [phone] Reason for Visit * Reason Comments Med Refill Encounter Details Date Type Department Care Team ([facility] st Contact Info) Description 03/07/2025 Refill [facility] [address] [place], [place] [phone] Lyly Cam MD [address] [place], [place] [phone] Social History Tobacco Use Types Packs/Day Years [...] documented as of this encounter Care Teams Ingot Passer Relationship Specialty Start Date End Date Lyly Cam MD [address] [place] [address] PCP - General Family Medicine 03/07/12 documented as of this encounter
--- OUTSIDE RECORDS SUMMARY | 2025-03-11 16:54 | XMS_ITS | Encounter Summary ---
Author Organization [employer] Address 75 [facility] 7t [place] [address] Care Team Providers Care Cash On Delivery Clerk Name Role Phone Lyly Cam MD Primary Care Provider [phone] Marcell Dutta PharmD Unavailable [phone] Reason for Visit * Reason Comments Med Refill Encounter Details Date Type Department Care Team ([facility] st Contact Info) Description 03/24/[address] [facility] [address] [place], [place] [phone] Nayana Bains MD [address] [place], [place] [phone] Dyslipidemia Social History Tobacco Use Types Packs/Day [...] documented as of this encounter Care Teams Cash On Delivery Clerk Relationship Specialty Start Date End Date Lyly Cam MD [address] [place] [address] PCP - General Family Medicine 03/07/12 Marcell Dutta, DenizD [address] [place] [address] Pharmacist Internal Medicine 04/04/22 12/17/24 documented as of this encounter
--- OUTSIDE RECORDS SUMMARY | 2025-03-11 16:54 | XMS_ITS | Encounter Summary ---
Author Organization [employer] Address 75 [facility] 7t [place] [address] Care Team Providers Care Sephora Product Consultant Name Role Phone Lyly Cam MD Primary Care Provider [phone] Marcell Dutta PharmD Unavailable [phone] Reason for Visit * Reason Comments Med Refill Encounter Details Date Type Department Care Team ([facility] st Contact Info) Description 04/18/[address] [facility] 230 [place], [place] [phone] Nayana Bains MD [address] [place], [place] [phone] Dyslipidemia Social History Tobacco Use Types Packs/Day [...] documented as of this encounter Care Teams Sephora Product Consultant Relationship Specialty Start Date End Date Lyly Cam MD [address] [place] [address] PCP - General Family Medicine 03/07/12 Marcell Dutta, DenizD [address] [place] [address] Pharmacist Internal Medicine 04/04/22 12/17/24 documented as of this encounter
--- OUTSIDE RECORDS SUMMARY | 2025-03-11 16:54 | XMS_ITS | Encounter Summary ---
Author Organization [employer] Address 75 [facility] 7t [place] [address] Care Team Providers Care Hand Bookbinder Name Role Phone Lyly Cam MD Primary Care Provider [phone] Marcell Dutta PharmD Unavailable [phone] Reason for Visit * Reason Comments Med Refill Encounter Details Date Type Department Care Team ([facility] st Contact Info) Description 04/02/2024 Refill [facility] [address] [place], [place] [phone] Nayana Bains MD [address] [place], [place] [phone] Dyslipidemia Social History Tobacco Use Types Packs/Day [...] documented as of this encounter Care Teams Hand Bookbinder Relationship Specialty Start Date End Date Lyly Cam MD [address] [place] [address] PCP - General Family Medicine 03/07/12 Marcell Dutta, DenizD [address] [place] [address] Pharmacist Internal Medicine 04/04/22 12/17/24 documented as of this encounter
--- OUTSIDE RECORDS SUMMARY | 2025-03-11 16:54 | XMS_ITS | Patient Health Record ---
Author Organization [employer] [facility] Address [address] [place] [address] Care Team Providers Care Recreation Program Specialist Name Role Phone Sharath Kevin Unavailable [phone] Reason For Referral No Information Plan Of Treatment No Information
--- OUTSIDE RECORDS SUMMARY | 2025-03-11 16:54 | XMS_ITS | Encounter Summary ---
Author Organization [employer] Address 75 [facility] 7t [place] [address] Care Team Providers Care School Psychologist Assistant Name Role Phone Lyly Cam MD Primary Care Provider [phone] Marcell Dutta PharmD Unavailable [phone] Reason for Visit * Reason Comments Med Refill Encounter Details Date Type Department Care Team ([facility] st Contact Info) Description 10/16/2024 Refill [facility] 230 [place], [place] [phone] Lyly Cam MD 230 [place], [place] [phone] Dyslipidemia Social History Tobacco Use Types Packs/Day [...] documented as of this encounter Care Teams School Psychologist Assistant Relationship Specialty Start Date End Date Lyly Cam MD 230 [place] [address] PCP - General Family Medicine 03/07/12 Marcell Dutta, DenizD [address] [place] [address] Pharmacist Internal Medicine 04/04/22 12/17/24 documented as of this encounter
== END ==
LOC: HO.CARD 12:46
PROVIDERS: PCP Family Medicine; Visit Provider Family Medicine
DX: R42 Dizziness and giddiness (principal)
CPT/HCPCS: 93225